=== PATIENT | male | born 1950 | race Caucasian/White ===

== ENCOUNTER 2024-02-21 15:47 | Outpatient (OUT) | payer MEDICARE, SELFPAY ==
--- NOTE | 2024-02-21 15:56 | XR_ITS ---
The [address] [address] Patient Name: MARIELA KENNY MRN: [id number] date: 1950 Sex: M Assigned Patient Location: [facility] Current Patient Location: Accession/Order Number: [id number] Exam Date: 02/21/2024 16:18 Report Date: 02/23/2024 06:46 At the request of: LIZ MAN Procedure: XR chest 2V EXAMINATION: XR chest 2V HISTORY: Cough COMPARISON: No relevant comparison available. FINDINGS: LUNGS: Underexpanded lungs with mild patchy opacities within left lung base. VASCULATURE: No increased pulmonary vasculature. PLEURA: No pneumothorax, effusion, or pleural thickening. CARDIAC: No cardiomegaly or cardiac silhouette abnormality. MEDIASTINUM: No visible mass or adenopathy. BONES: No fracture or visible bone lesion. OTHER: [Or projecting over lower left chest. XR/XR chest 2V IMPRESSION: 1. Mild left basilar infiltrates. Electronically authenticated by: BRITTANEY GARCIA Date: 02/23/2024 06:46
== END 2024-02-21 15:48 | disposition home or self-care (01) ==
LOC: RAD 15:51
PROVIDERS: PCP Nurse Practitioner; Visit Provider Nurse Practitioner
DX: R05.9 Cough, unspecified (principal)
CPT/HCPCS: 71046

== ENCOUNTER 2024-12-05 09:32 | Outpatient (OUT) | payer MEDICARE, SELFPAY ==
--- OUTSIDE RECORDS SUMMARY | 2024-12-05 09:40 | XMS_ITS | Encounter Summary ---
Author Organization [facility] 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 Chest pain, unspecified type R06.02 (ICD-10-CM) - Shortness of breath Procedures NM MYOCARDIAL SPECT REST EXERCISE OR RX CHG MYOCARDIAL SPECT MULTIPLE STUDIES [id number] - CHG MYOCARDIAL SPECT MULTIPLE STUDIES Selena Burks MD [address] [place] [address] Phone: tel: fax: Referral ID Status Reason Start Date Expiration Date Visits Re quested Visits Authorized [id number] Closed 04/14/2022 06/13/2022 1 1 Encounter Details Date Type Department Care Team (Latest Contact Info) Description 04/08/2022 Transcribe Orders [facility] [address] [place] [address] Selena Burks MD [address] [place] [address] [phone] Shortness of breath (Primary Dx); 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 [facility] pctrs; Presence of coronary angioplasty implant and graft; Chest pain, unspecified type Social History Tobacco Use Types Packs/Day Years Used Date Smoking Tobacco: Never Assessed Sex and Gender Information Value Date Recorded Sex Assigned at Not on file Legal Sex Male 2:21 AM EST Gender Identity Not on file Sexual Orientation Not on file documented as of this encounter Plan of Treatment Scheduled Orders Name Type Priority Associated Diagnoses Orde r Schedule NM MYOCARDIAL SPECT REST EXERCISE OR RX Imaging Routine Shortness of breath 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 [facility] pctrs Presence of coronary angioplasty implant and graft Chest pain, unspecified type Expected: 04/08/2022, Expires: 04/08/2023 documented as of this encounter Visit Diagnoses Diagnosis Shortness of breath- Primary 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
--- OUTSIDE RECORDS SUMMARY | 2024-12-05 09:40 | XMS_ITS | Clinical Summary ---
Author Organization [facility] Address [address] [facility], [address] [place] [address] Care Team Providers Care Underground Truck Operator Name Role Phone Lee Ann rBower APRN - CONTINUOUS IMPROVEMENT BLACK BELT Primary Care Provider [phone]- [phone] Allergies Active Allergy Reactions Criticality Noted Date Comments Amoxapine 09/22/2017 tremor Ciprofloxacin 09/22/2017 headache Gentamicin 09/22/2017 Garamycin ointment Sulfamethoxazole-Trimethoprim 2017 Medications atorvastatin (LIPITOR) 40 MG tablet Take 40 mg by mouth daily Active metFORMIN (GLUCOPHAGE) 500 MG tablet Take 500 mg by mouth 2 times daily (with meals) 09/26/2017 Active ranolazine (RANEXA) 500 MG extended release tablet Take 500 mg by mouth 2 times daily Active docusate sodium (COLACE) 250 MG capsule Take 250 mg by mouth daily Active nitroGLYCERIN (NITROSTAT) 0.[address] 0.4 mg under the tongue every 5 minutes as needed for Chest pain up to max of 3 total doses. If no relief after 1 dose, call 911. Active metoprolol tartrate (LOPRESSOR) 25 MG tablet Take 25 mg by mouth 2 times daily Active aspirin 81 MG chewable tablet Take 1 tablet by mouth daily 30 tablet 3 05/02/2022 Active ticagrelor (BRILINTA) 90 MG TABS tablet Take 1 tablet by mouth 2 times daily 60 tablet 05/01/2022 Active pantoprazole (PROTONIX) 40 MG tablet Take 40 mg by mouth daily Active ezetimibe (ZETIA) 10 MG tablet Take 1 tablet by mouth daily Active Active Problems Problem Noted Date Diagnosed Date CAD in [place] artery 06/08/2022 Encounters Date Type Department Care Team Description 09/26/2024 9:36 AM EDT - 09/26/2024 11:59 PM EDT Hospital Encounter [facility] [address] [place] [address] Discharge Disposition: Home or Self Care 09/26/2024 8:42 AM EDT - 09/26/2024 9:35 AM EDT Hospital Encounter [facility] [address] [place] [address] Discharge Disposition: Home or Self Care from Last 3 Months Family History Medical History Relation Name Comments Heart Disease Brother Heart Attack Father Heart Disease Mother High Blood Pressure Mother Relation Name Status Comments Brother Father Mother Social History Tobacco Use Types Packs/Day Years Used Date Smoking Tobacco: Former Cigarettes 2 28 1 967 1994 Tobacco Cessation:Counseling Given: Not Answered Alcohol Use Standard Drinks/Week Comments Yes 2 (1 standard drink = 0.6 oz pur e alcohol) Sex and Gender Information Value Date Recorded Sex Assigned at Not on file Legal Sex Male 2:21 AM EST Gender Identity Not on file Sexual Orientation Not on file Last Filed Vital Signs Vital Sign Reading Time Taken Comments Blood Pressure 144/65 03/03/2024 4:45 PM EST Pulse 68 03/03/2024 4:45 PM EST Temperature 36.7 C (98.1 F) 03/03/2024 3:27 PM EST Respiratory Rate 13 03/03/2024 4:45 PM EST Oxygen Saturation 97% 03/03/2024 4:45 PM EST Inhaled Oxygen Concentration - - Weight 111.1 kg (245 lb) 03/03/2024 3:25 PM EST Height 182.9 cm (6') 03/03/2024 3:25 PM EST Body Mass Index 33.23 03/03/2024 3:25 PM EST Plan of Treatment Health Maintenance Due Date Last Done Comments Depression Screen 1964 Hepatitis C screen 1970 DTaP/Tdap/Td vaccine (1 - Tdap) 1971 Colonoscopy 1997 Colorectal Cancer Screen 1997 FIT/FOBT: Average risk 1997 Fecal-DNA (Cologuard): Average risk 1997 Sigmoidoscopy/CT colonography 1997 Pneumococcal 50+ years Vaccine (1 of 1 - PCV) 2002 Shingles vaccine (1 of 2) 2002 Respiratory Syncytial Virus (RSV) or age 60 yrs+ (1 - Risk 60-74 years 1-dose series) 2012 AAA screen 2017 Annual Wellness Visit (Medicare Advantage) 03/15/2024 A1C test (Diabetic or Prediabetic) 09/15/2024 09/16/2023, 10/03/2020 Flu vaccine (#1) 10/13/2024 COVID-19 Vaccine ( season) 2024 12/07/2022, 12/04/2021, 06/17/2021, Additional history exists GFR test (Diabetes, CKD 3-4, OR last GFR 15-59) 09/26/2025 09/26/2024, 04/03/2024, 03/03/2024, Additional history exists Lipids 09/26/2025 09/26/2024, 03/16, 09/16/2023, Additional history exists Hepatitis A vaccine Aged Out No longe r eligible based on patient's age to complete this topic Hepatitis B vaccine Aged Out No longe r eligible based on patient's age to complete this topic Hib vaccine Aged Out No longer eligi ble based on patient's age to complete this topic Meningococcal (ACWY) vaccine Aged Out No longer eligible based on patient's age to complete this topic Meningococcal B vaccine Aged Out No l onger eligible based on patient's age to complete this topic Polio vaccine Aged Out No longer elig ible based on patient's age to complete this topic Procedures Procedure Name Priority Date/Time Associated Diagnosis Comments TSH Routine 09/26/2024 9:37 AM EDT LIPID, FASTING Routine 09/26/2024 9:37 AM EDT T4, FREE Routine 09/26/2024 9:37 AM EDT T3, FREE Routine 09/26/2024 9:37 AM EDT COMPREHENSIVE METABOLIC PANEL Routine 09/26/2024 9:37 AM EDT CK Routine 09/26/2024 9:37 AM EDT CBC WITH AUTO DIFFERENTIAL Routine 09/26/2024 9:37 AM EDT HEMOGLOBIN A1C Routine 09/16/2023 8:46 AM EDT from Last 3 Months or Most Recently Relevant to Health Maintenance Results * (ABNORMAL) Lipid, Fasting (09/26/2024 9:37 AM EDT) Cholesterol, Fasting 151 0 - 199 mg/dL 09/26/2024 9:37 AM EDT [facility] Comment: Cholesterol Guidelines: <200 Desirable 200-240 Borderline >240 Undesirable HDL 59 >40 mg/dL 09/26/2024 9:37 AM EDT [facility] Comment: HDL Guidelines: <40 Undesirable 40-59 Borderline >59 Desirable LDL Cholesterol 57 0 - 100 mg/dL 09/26/2024 9:37 AM EDT [facility] Comment: LDL Guidelines: <100 Desirable 100-129 Near to/above Desirable 130-159 Borderline >159 Undesirable Direct (measured) LDL and calculated LDL are not interchangeable tests. Chol/HDL Ratio 2.6 <5.0 09/26/2024 9:37 AM EDT [facility] Triglyceride, Fasting 177(H) 0 - 149 mg/dL 09/26/2024 9:37 AM EDT [facility] Comment: Triglyceride Guidelines: <150 Desirable 150-199 Borderline 200-499 High >499 Very high Based on AHA Guidelines for fasting triglyceride, December 2011. VLDL 35(H) 1 - 30 mg/dL 09/26/2024 9:37 AM T [facility] 09/26/2024 9:37 AM EDT 09/26/2024 9:38 AM EDT us Selena Burks MD CHEMISTRY ORDERABLES Final R esult [facility] [address] [place] [address], [facility] [phone] [facility] [address] [place] [address], [facility] [phone] * (ABNORMAL) CBC with Auto Differential (09/26/2024 9:37 AM EDT) WBC 5.6 3.5 - 11.3 k/uL 09/26/2024 9:37 AM [facility] RBC 4.18(L) 4.21 - 5.77 m/uL 09/26/2024 9:37 AM [facility] Hemoglobin 14.8 13.0 - 17.0 g/dL 09/26/2024 9:37 AM [facility] Hematocrit 43.0 40.7 - 50.3 % 09/26/2024 9:37 AM [facility] MCV 102.9 82.6 - 102.9 fL 09/26/2024 9:37 AM [facility] MCH 35.4(H) 25.2 - 33.5 pg 09/26/2024 9:37 AM [facility] MCHC 34.4 28.4 - 34.8 g/dL 09/26/2024 9:37 AM [facility] RDW 12.7 11.8 - 14.4 % 09/26/2024 9:37 AM [facility] Platelets 146 138 - 453 k/uL 09/26/2024 9:37 AM [facility] MPV 10.3 8.1 - 13.5 fL 09/26/2024 9:37 AM [facility] NRBC Automated 0.0 0.0 per 100 WBC 09/26/2024 9:37 AM [facility] Neutrophils % 68(H) 36 - 65 % 09/26/2024 9:37 AM [facility] Lymphocytes % 19(L) 24 - 43 % 09/26/2024 9:37 AM [facility] Monocytes % 10 3 - 12 % 09/26/2024 9:37 AM [facility] Eosinophils % 2 1 - 4 % 09/26/2024 9:37 AM EDT [facility] Basophils % 1 0 - 2 % 09/26/2024 9:37 AM EDT [facility] Immature Granulocytes % 0 0 % 09/26/2024 9:37 AM EDT [facility] Neutrophils Absolute 3.81 1.50 - 8.10 k/uL 09/26/2024 9:37 AM EDT [facility] Lymphocytes Absolute 1.08(L) 1.10 - 3.70 k/uL 09/26/2024 9:37 AM EDT [facility] Monocytes Absolute 0.56 0.10 - 1.20 k/uL 09/26/2024 9:37 AM EDT [facility] Eosinophils Absolute 0.12 0.00 - 0.44 k/uL 09/26/2024 9:37 AM EDT [facility] Basophils Absolute 0.03 0.00 - 0.20 k/uL 09/26/2024 9:37 AM EDT [facility] Immature Granulocytes Absolute <0.03 0.00 - 0.30 k/uL 09/26/2024 9:37 AM EDT [facility] 09/26/2024 9:37 AM EDT 09/26/2024 9:38 AM EDT us Selena Burks MD HEMATOLOGY ORDERABLES Final Result Performing Organization Address City/State/[facility] Co de Phone Number [facility] [address] [phone] * T3, Free (09/26/2024 9:37 AM EDT) T3, Free 2.82 2.00 - 4.40 pg/mL 09/26/2024 9:37 AM EDT [facility] 09/26/2024 9:37 AM EDT 09/26/2024 9:38 AM EDT us Selena Burks MD CHEMISTRY ORDERABLES Final R esult Performing Organization Address [facility]/ZIP Co de Phone Number [facility] [address] [phone] [facility] [address] [place] [address], [facility] [phone] * TSH (09/26/2024 9:37 AM EDT) TSH 1.16 0.27 - 4.20 uIU/mL 09/26/2024 9:37 AM EDT [facility] 09/26/2024 9:37 AM EDT 09/26/2024 9:38 AM EDT us Selena Burks MD CHEMISTRY ORDERABLES Final R esult Performing Organization Address [facility]/ZIP Co de Phone Number [facility] [address] [place] [address] * T4, Free (09/26/2024 9:37 AM EDT) T4 Free 1.2 0.92 - 1.68 ng/dL 09/26/2024 9:37 AM EDT [facility] 09/26/2024 9:37 AM EDT 09/26/2024 9:38 AM EDT us Selena Burks MD CHEMISTRY ORDERABLES Final R esult Performing Organization Address City/[facility]/ZIP Co de Phone Number [facility] [address] [place] [address] [place] [address], [facility] [phone] * CK (09/26/2024 9:37 AM EDT) Total CK 52 39 - 308 U/L 09/26/2024 9:37 AM EDT [facility] 09/26/2024 9:37 AM EDT 09/26/2024 9:38 AM EDT us Selena Burks MD CHEMISTRY ORDERABLES Final R esult [facility] [address] [phone] * (ABNORMAL) Comprehensive Metabolic Panel (09/26/2024 9:37 AM EDT) Sodium 139 136 - 145 mmol/L 09/26/2024 9:37 AM T [facility] Potassium 4.8 3.7 - 5.3 mmol/L 09/26/2024 9:37 AM [facility] Chloride 104 98 - 107 mmol/L 09/26/2024 9:37 AM [facility] CO2 21 20 - 31 mmol/L 09/26/2024 9:37 AM [facility] Anion Gap 14 9 - 16 mmol/L 09/26/2024 9:37 AM [facility] Glucose 139(H) 74 - 99 mg/dL 09/26/2024 9:37 AM [facility] BUN 22 8 - 23 mg/dL 09/26/2024 9:37 AM [facility] Creatinine 1.3(H) 0.70 - 1.20 mg/dL 09/26/2024 9:37 AM [facility] Est, Glom Filt Rate 57(L) >60 mL/min/1.7 3m2 09/26/2024 9:37 AM [facility] Comment: These results are not intended for use in patients <18 years of age. eGFR results are calculated without a race factor using the 2020 CKD-EPI equation. Careful clinical correlation is recommended, particularly when comparing to results calculated using previous equations. The CKD-EPI equation is less accurate in patients with extremes of muscle mass, extra-renal metabolism of creatine, excessive creatine ingestion, or following therapy that affects renal tubular secretion. BUN/Creatinine Ratio 17 9 - 20 09/26/2024 9:37 AM [facility] Calcium 9.2 8.6 - 10.4 mg/dL 09/26/2024 9:37 AM EDT [facility] Total Protein 7.0 6.6 - 8.7 g/dL 09/26/2024 9:37 AM EDT [facility] Albumin 4.2 3.5 - 5.2 g/dL 09/26/2024 9:37 AM EDT [facility] Albumin/Globulin Ratio 1.5 1.0 - 2.5 09/26/2024 9:37 AM EDT [facility] Total Bilirubin 0.5 0.00 - 1.20 mg/dL 09/26/2024 9:37 AM EDT [facility] Alkaline Phosphatase 49 40 - 129 U/L 09/26/2024 9:37 AM T [facility] ALT 27 10 - 50 U/L 09/26/2024 9:37 AM T [facility] AST 29 10 - 50 U/L 09/26/2024 9:37 AM EDT [facility] 09/26/2024 9:37 AM EDT 09/26/2024 9:38 AM EDT Selena Burks MD CHEMISTRY ORDERABLES Final R esult [facility] [address] [phone] * (ABNORMAL) Hemoglobin A1C (09/16/2023 8:46 AM EDT) Hemoglobin A1C 6.3(H) 4.0 - 6.0 % 09/16/2023 8:46 AM EDT [facility] Estimated Avg Glucose 134 mg/dL 09/16/2023 8:46 AM EDT [facility] Comment: The ADA and AACC recommend providing the estimated average glucose result to permit better patient understanding of their HBA1c result. 09/16/2023 8:46 AM EDT 09/16/2023 8:47 AM EDT us Mague Brown TOLL LINE REPAIRER - FOOD SERVICE DIRECTOR CHEMISTRY ORDERABLES Fin al Result [facility] [address] [place] [address], [facility] [phone] [facility] [address] [place] [address], [facility] [phone] from Last 3 Months or Most Recently Relevant to Health Maintenance Insurance [facility]-MEDICARE ADVANTAGE Advance Directives Documents on File Type Date Recorded Patient Satin Finisher Expl anation ACP-Power of Flavoring Maker 03/03/2024 5:14 PM Durable Power of Flavoring Maker for Health Care ACP-Advance Directive 05/04/2022 1:36 PM ACP-Advance Directive 04/30/2022 1:13 PM A CP-Advance Directive * Full Code (Latest Code Status on File) Date Activated Date Inactivated Comments 04/30/2022 8:23 PM 05/01/2022 2:09 PM Care Teams Underground Truck Operator Relationship Specialty Start Date End Date Lee Ann Brower APRN - CONTINUOUS IMPROVEMENT BLACK BELT [address] [place] [address] PCP - General 03/03/24
--- OUTSIDE RECORDS SUMMARY | 2024-12-05 09:40 | XMS_ITS | Clinical Summary ---
Author Organization [employer] [facility] [employer] Address [id number] [address] [place] [address] Care Team Providers Care Endoscopy Specialty Technician Name Role Phone Noa Avery MD Primary Care Provider Allergies Active Allergy Reactions Criticality Noted Date Comments Asendin 09/22/2017 tremor Sulfamethoxazole-Trimethoprim 2017 Ciprofloxacin 09/22/2017 headache Gentamicin 09/22/2017 Garamycin ointment Medications oxyCODONE-aceta minophen (PERCOCET) 5-325 mg per tablet Take 1 tablet by mouth every 6 (six) hours as needed for pain. Active ranolazine (RANEXA) 500 mg 12 hr tablet Take 500 mg by mouth 2 (two) times a day. Active atorvastatin (LIPITOR) 40 mg tablet Take 40 mg by mouth daily. Active omeprazole (PriLOSEC) 20 mg capsule Take 20 mg by mouth nightly. Active metoprolol tartrate (LOPRESSOR) 25 mg tablet Take 12.5 mg by mouth 2 (two) times a day. Active mometasone (NASONEX) 50 mcg/actuation nasal spray Administer 2 sprays into each nostril daily. Active nitroglycerin (NITROSTAT) 0.[address] 0.4 mg under the tongue every 5 (five) minutes as needed for chest pain. Active aspirin 81 mg chewable tablet Chew 1 tablet (81 mg total) and swallow daily. 30 tablet 8 Active metFORMIN (GLUCOPHAGE) 500 mg tablet Take 1 tablet (500 mg total) by mouth 2 (two) times a day with meals. 30 tablet 8 Active Active Problems Problem Noted Date Diagnosed Date Facial abscess 09/22/2017 Immunizations No known immunizations Social History Tobacco Use Types Packs/Day Years Used Date Smoking Tobacco: Former Cigarettes 2 18 1 977 - 1994 Smokeless Tobacco: Never Alcohol Use Standard Drinks/Week Comments Yes 7 (1 standard drink = 0.6 oz pur e alcohol) Childcare Answer Date Recorded Childcare Unknown 08/24/2018 Employment Answer Date Recorded Employment Unknown 08/24/2018 Purpose - Life Answer Date Recorded Purpose and direction in life Unknown Sex and Gender Information Value Date Recorded Sex Assigned at Not on file Legal Sex Male 11:39 AM EDT Gender Identity Not on file Sexual Orientation Not on file Last Filed Vital Signs Vital Sign Reading Time Taken Comments Blood Pressure 133/74 09/26/2017 11:44 AM EDT Pulse 62 09/26/2017 11:44 AM EDT Temperature 36.8 C (98.2 F) 09/26/2017 11:44 AM EDT Respiratory Rate 21 09/26/2017 11:4 4 AM EDT Oxygen Saturation 99% 09/26/2017 11: 44 AM EDT Inhaled Oxygen Concentration - - Weight 112.4 kg (247 lb 12.8 oz) 09/26/2017 4:16 AM EDT Height 182.9 cm (6') 09/22/2017 9:00 PM EDT Body Mass Index 33.61 09/22/2017 9:00 PM EDT Plan of Treatment Health Maintenance Due Date Last Done Comments Depression Screening 1962 Tobacco Screening 1964 Adult BMI Screening 1970 DTaP,Tdap and Td Vaccines (1 - Tdap) 1971 Zoster (Shingles) Vaccine (1 of 2) 2002 Fall Risk Screening 2017 COVID-19 Vaccine (5 2024-2 6 season) 2024 12/04/2021, 12/13/2020, 05/17/2020, Additional history exists Influenza Vaccine 11/13/2024 Goals Goal Patient Goal Type Associated Problems Recent Progress Patient-Stated? Author Discharge to home with safe self care General Yes Bernice Perez, RN Note: Evaluation of progress towards goal: Pt to potentially discharge on 7/13 with safe self care. Medical Devices Not on file Procedures Procedure Name Priority Date/Time Associated Diagnosis Comments NOCTURNAL PULSE OXIMETRY Routine 10/03/2024 4:04 PM EDT Shortness of breath from Last 3 Months Results * Nocturnal Pulse Oximetry - [facility] Monitor Program (10/03/2024 4:04 PM EDT) Narrative MANUALLY TRANSCRIBED RESULTS - 10/03/2024 4:04 PM EDT Pulse Oximetry Report Recording Information Site of recording: Home Type: Nocturnal Respiratory Support: None (Room air) Results: On Room Air Nocturnal SaO2: (77-97%) Time with SpO2 < 89% 221.7 minutes Nocturnal HR: 67 bpm Resting SaO2: 94 % Resting HR: 68 bpm Comments: noc pox on room air Respiratory Therapist: Sheila Ponce RCP Selena Burks MD RESPIRATORY CARE ORDERABLES Final Result MANUALLY TRANSCRIBED RESULTS from Last 3 Months Insurance [employer] MEDICARE Advance Directives Documents on File Type Date Recorded Patient Commercial Drone Software Developer Expl anation Living Will 09/22/2017 8:06 PM DPOA * Full Code (Latest Code Status on File) Date Activated Date Inactivated Comments 09/22/2017 8:56 PM 09/26/2017 4:54 PM Care Teams Endoscopy Specialty Technician Relationship Specialty Start Date End Date Noa Avery MD PCP - General Family Medicine 03/15/17
--- OUTSIDE RECORDS SUMMARY | 2024-12-05 09:45 | XMS_ITS | CCD ---
Author Organization [facility] Care Team Providers Care Reading Specialist Name Role Phone Sara Avery Primary Care Provider [phone] DR NICKI LIN Attending Unavailable GENA, DR SARA Davila Primary Care Unavailable RILEY, DR CACERES Admitting Unavailable RILEY, DR CACERES Consulting Unavailable GENA, DR SARA Davila Admitting Unavailable GENA, DR SARA Davila Primary Care Unavailable GENA, DR SARA Davila Consulting Unavailable GENA, DR SARA Davila Attending Unavailable Sara Avery Primary Care Provider [phone] Sara Avery Primary Care Provider [phone] Sara Avery Primary Care Provider Sara Avery Primary Care Provider UnavailSara Price MD Primary Care Provider UnavailSara Lockett MD Primary Care Provider Unavailab le Magda [employer], Liz Primary Care Provider [phone] MAGDA, LIZ Primary Care Unavailable DOMO MATTSON Attending Unavailable MAGDA, LIZ Primary Care Unavailable MAGDA, LIZ Primary Care Unavailable MAGDA, LIZ Primary Care Unavailable SARA AVERY Primary Care Unavailable SARA AVERY Referring Unavailable SARA AVERY Primary Care Unavailable SARA AVERY Referring Unavailable MAGDA, LIZ Primary Care Unavailable MAGDA, LIZ Primary Care Unavailable DOT, FADHIL A Referring Unavailable MAGDA, LIZ Primary Care Unavailable DOT, FADHIL A Referring Unavailable MAGDA, LIZ Primary Care Unavailable MAGDA, LIZ Primary Care Unavailable MAGDA, LIZ Primary Care Unavailable SARA AVERY Primary Care Unavailable SARA AVERY Referring Unavailable DOT, FADHIL A Referring Unavailable MAGDA, LIZ Primary Care Unavailable MAGDA, LIZ Primary Care Unavailable SARA AVERY Primary Care Unavailable SARA AVERY Referring Unavailable SARA AVERY Primary Care Unavailable AVERY, SARA Davila Referring Unavailable MAGDA, LIZ Primary Care Unavailable DOT, FADHIL A Referring Unavailable MAGDA, LIZ Primary Care Unavailable DOT, FADHIL A Referring Unavailable MAGDA, LIZ Primary Care Unavailable MAGDA, LIZ Referring Unavailable MAGDA, LIZ Primary Care Unavailable MAGDA, LIZ Primary Care Unavailable DOT, FADHIL A Referring Unavailable AVERY, SARA Davila Primary Care Unavailable AVERY, SARA Davila Referring Unavailable AVERY, SARA Davila Primary Care Unavailable AVERY, SARA Davila Referring Unavailable MAGDA, LIZ Primary Care Unavailable DOT, FADHIL A Referring Unavailable AVERY, SARA Davila Primary Care Unavailable AVERY, SARA Davila Referring Unavailable MAGDA, LIZ Primary Care Unavailable DOT, FADHIL A Referring Unavailable MAGDA, LIZ Primary Care Unavailable AVERY, SARA Davila Primary Care Unavailable AVERY, SARA Davila Referring Unavailable AVERY, SARA Davila Primary Care Unavailable AVERY, SARA Davila Referring Unavailable AVERY, SARA Davila Primary Care Unavailable AVERY, SARA Davila Referring Unavailable AVERY, SARA Davila Referring Unavailable AVERY, SARA Davila Primary Care Unavailable Magda, Liz L Attending Unavailable Magda, Liz L Attending Unavailable Magda, Liz L Attending Unavailable Magda, Liz L Attending Unavailable Magda, Liz L Attending Unavailable Allergies Allergy Classification Reported Allergen(s) Allergy Type Date of Onset Reaction(s) Facility Amoxapine (1 source) Amoxapine Drug Allergy 8 [facility] Gentamicin (1 source) Gentamicin Drug Allergy 8 [facility] Quinolones (antibiotic) (1 source) Ciprofloxacin Drug Allergy 8 [facility] Sulfamethoxazole / Trimethoprim (1 source) Sulfamethoxazole / Trimethoprim Drug Allergy 8 [facility] (3 sources) Amoxapine; Translations: [ASENDIN] Drug Allergy 4 [facility] Repository (1 source) Ciprofloxacin Drug Allergy 4 [facility] Repository (1 source) Gentamicin Sulfate (LONG-TERM) Drug Allergy [facility] Repository (2 sources) Sulfamethoxazole / Trimethoprim; Translations: [Bactrim] Drug Allergy 6 [facility] Repository (20 sources) Amoxapine Drug Allergy 8 [facility] (20 sources) Ciprofloxacin; Translations: [CIPROFLOXACIN] Drug Allergy 8 [facility] [employer] Work Phone: (20 sources) Gentamicin; Translations: [GENTAMICIN] Drug Allergy 8 [facility] Work Phone: (20 sources) Sulfamethoxazole / Trimethoprim; Translations: [SULFAMETHOXAZOLE-TR IMETHOPRIM] Drug Allergy 8 [facility] Work Phone: (1 source) Gentamicin Sulfate (LONG-TERM); Translations: [Garamycin Ophthalmic] Drug Allergy [facility] Repository (1 source) Ticagrelor; Translations: [Brilinta] Drug Allergy [facility] Repository Medications Current Medications Medication Drug Class(es) Dates Sig (Normalized) Sig (Original) acetaminophen 325 mg oral tablet (1 source) Start: 04-30-2022 acetaminophen (TYLENOL) tablet 650 mg aspirin 81 mg chewable tablet (20 sources) Platelet Aggregation Inhibitor, Nonsteroidal Anti-inflammatory Drug Start: 05-02-2022 take 1 tablet by mouth once daily aspirin 81 MG chewable tablet Take 1 tablet by mouth daily 30 tablet 3 05/02/2022 Active Start: 05-02-2022 take 1 tablet by daniella th once daily aspirin 81 MG chewable tablet Take 1 tablet by mouth daily 30 tablet 3 05/02/2022 Active Start: 05-01-2022 aspirin chewab le tablet 81 mg End: 05-01-2022 take 1 tablet by mouth once daily aspirin 325 MG EC tablet Take 325 mg by mouth daily 0 05/01/2022 Discontinued (Stop Taking at Discharge) atorvastatin 40 mg oral tablet (20 sources) HMG-CoA Reductase Inhibitor take 1 tablet by mouth once daily atorvastatin (LIPITOR) 40 MG tablet Take 40 mg by mouth daily Active docusate sodium 250 mg oral capsule (20 sources) take 1 capsule by mouth once daily docusate sodium (COLACE) 250 MG capsule Take 250 mg by mouth daily Active ezetimibe 10 mg oral tablet (20 sources) Dietary Cholesterol Absorption Inhibitor take 1 tablet by mouth once daily ezetimibe (ZETIA) 10 MG tablet Take 1 tablet by mouth daily Active metFORMIN hydrochloride 500 mg oral tablet (20 sources) Biguanide Start: 09-27-19 18 take 1 tablet by mouth twice daily at mealtime metFORMIN (GLUCOPHAGE) 500 MG tablet Take 500 mg by mouth 2 times daily (with meals) 09/26/2017 Active metoprolol tartrate 25 mg oral tablet (20 sources) beta-Adrenergic Epi take 1 tablet by mouth twice daily metoprolol tartrate (LOPRESSOR) 25 MG tablet Take 25 mg by mouth 2 times daily Active 1 ml morphine sulfate 2 mg/ml cartridge (1 source) Opioid Agonist Start: 04-30-19 End: 05-01-19 morphine (PF) injection 2 mg nitroglycerin 0.4 mg sublingual tablet (20 sources) Nitrate Vasodilator nitroGLYCERI N (NITROSTAT) 0.[address] 0.4 mg under the tongue every 5 minutes as needed for Chest pain up to max of 3 total doses. If no relief after 1 dose, call 911. Active 2 ml ondansetron 2 mg/ml injection (1 source) Serotonin-3 Receptor Antagonist Start: 04-30-19 ondansetron (ZOFRAN) injection 4 mg pantoprazole 40 mg delayed release oral tablet (20 sources) Proton Pump Inhibitor take 1 tablet by mouth once daily pantoprazole (PROTONIX) 40 MG tablet Take 40 mg by mouth daily Active 12 hr ranolazine 500 mg extended release oral tablet (20 sources) Anti-anginal take 1 tablet by mouth twice daily ranolazine (RANEXA) 500 MG extended release tablet Take 500 mg by mouth 2 times daily Active 1000 ml sodium chloride 9 mg/ml injection (5 sources) Start: 04-30-19 0.9 % sodium chloride bolus Start: 04-30-2022 0.9 % sodium c hloride infusion Start: 04-30-2022 sodium chlorid e flush 0.9 % injection 5-40 mL ticagrelor 90 mg oral tablet (20 sources) Start: 04-30-2022 take 1 tablet by mouth twice daily ticagrelor (BRILINTA) 90 MG TABS tablet Take 1 tablet by mouth 2 times daily 60 tablet 05/01/2022 Active Completed/Discontinued Medications Medication Drug Class(es) Dates Sig (Normalized) Sig (Original) omeprazole 20 mg delayed release oral capsule (2 sources) Proton Pump Inhibitor End: 05-05-2022 take 1 capsule by mouth once daily omeprazole (PRILOSEC) 20 MG delayed release capsule Take 20 mg by mouth nightly 0 05/05/2022 Discontinued (LIST CLEANUP) regadenoson (LEXISCAN) injection 0.4 mg (2 sources) Start: 04-03-2024 End: 04-03-2024 take 0.4 mg intravenously once as needed 0.4 mg, IntraVENous, IMG ONCE PRN, 1 dose, Starting on Wed04/03/24 at 1040, Until Wed04/03/24 at 1049, Other Start: 04-17-2022 End: 04-17-2022 regadenoson (LEXISCAN) injec tion 0.4 mg technetium sestamibi (CARDIOLITE) injection 30 millicurie (3 sources) Start: 04-04-2024 End: 04-04-2024 take 1 dose intravenously once 30 millicurie, IntraVENous, IMG ONCE PRN, 1 dose, Starting on Wed04/04/24 at 1258, Until Wed04/04/24 at 1252, Other Start: 04-03-2024 End: 04-03-2024 take 1 dose intravenously once 30 millicurie, IntraVEN ous, IMG ONCE PRN, 1 dose, Starting on Wed04/03/24 at 1059, Until Wed04/03/24 at 1035, Other Start: 04-17-2022 End: 04-17-2022 technetium sestamibi (CARDIO LITE) injection 30 millicurie Problems Active Problems Problem Classification Problem Date Documented Date Episodic/Chronic Cardiac dysrhythmias (8 sources) Atrial premature complex ; Translations: [Atrial premature depolarization] Onset: 04-03-2024 04-03-2024 Chronic Coronary atherosclerosis and other heart disease (20 sources) Coronary atherosclerosis; Translations: [Atherosclerotic heart disease of [place] coronary artery with other forms of angina pectoris] Onset: 06-08-2022 Chronic Diabetes mellitus without complication (4 sources) Type 2 diabetes mellitus without complications; Translations: [TYPE 2 DM WITHOUT COMPLICATIONS] Onset: 01-06-2021 Chronic Disorders of lipid metabolism (2 sources) Pure hypercholesterolemia, unspecified; Translations: [Pure hypercholesterolemia, unspecified] Onset: 04-03-2024 Chronic Essential hypertension (2 sources) Essential (primary) hypertension; Translations: [Essential (primary) hypertension] Onset: 04-03-2024 Chronic Nonspecific chest pain (1 source) Chest pain; Translations: [Chest pain, unspecified] Episodic Other connective tissue disease (1 source) Synovial cyst of popliteal space [Hernandez], unspecified knee; Translations: [Synovial cyst of popliteal space [Hernandez], unspecified knee] Onset: 10-24-2024 Episodic Other lower respiratory disease (6 sources) Shortness of breath; Translations: [SHORTNESS OF BREATH] Onset: 11-26-2021 Episodic Other lower respiratory disease (2 sources) Dyspnea; Translations: [Shortness of breath] Episodic Other nutritional; endocrine; and metabolic disorders (1 source) Body mass index (BMI) 35.0-35.9, adult; Translations: [Body mass index [BMI] 35.0-35.9, adult] Onset: 10-24-2024 Chronic Screening and history of mental health and substance abuse codes (1 source) Personal history of nicotine dependence; Translations: [Personal history of nicotine dependence] Onset: 10-24-2024 Episodic Unclassified (1 source) Supraventricular tachycardia, unspecified; Translations: [Supraventricular tachycardia, unspecified] Onset: 09-26-2024 Past or Other Problems Problem Classification Problem Date Documented Date Episodic/Chronic Coronary atherosclerosis and other heart disease (3 sources) History of cardiovascular surgery; Translations: [Presence of coronary angioplasty implant and graft] Onset: 04-03-2024 Episodic Malaise and fatigue (4 sources) Fatigue; Translations: [Other fatigue] Onset: 03-03-2024 03-03-2024 Episodic Unclassified (1 source) Supraventricular tachycardia, unspecified; Translations: [Supraventricular tachycardia, unspecified] Onset: 09-26-2024 Results Test Name Value Interpretation Reference Range Facility Ambulatory Visit Summaryon 0 11-15-2024 Ambulatory Visit Summary Ambulatory Visit Summary MARIELA CORTEZ :1950 Visit Date:11/15/2024 Ambulatory Visit Instructions Your Diagnosis Hernandez's cyst of knee BMI 35.0-35.9,adult Obesity (BMI 30-39.9) Your Care Team Attending Physician - Liz Brock Primary Care Physician - Liz Brock This Is Your Medications List [facility] Prescription (Handicap Placard) amiodarone (amiodarone 100 mg Tab) atorvastatin (atorvastatin 80 mg Tab) brompheniramine/dextro methorphan/PSE (Bromfed DM oral syrup) brompheniramine/dextro methorphan/PSE (brompheniramine/dextr omethorphan/PSE 2 mg-10 mg-30 mg/5 mL oral syrup) digoxin (digoxin 125 mcg (0.125 mg) Tab) docusate (docusate sodium 250 mg oral capsule) ezetimibe (ezetimibe 10 mg Tab) fluticasone nasal (fluticasone Nasal 0.05 mg/inh [place]) meloxicam (meloxicam 15 mg Tab) metformin (metformin 500 mg Tab) metoprolol (metoprolol 25 mg ER Tab) nitroglycerin (NitroStat 0.4 mg Tab) pantoprazole (Pantoprazole [address] Tab) ranolazine (ranolazine 1000 mg oral granule, extended release) Procedures Performed Stent (2022), Tonsillectomy, Umbilical hernia. Discharge Vitals Temperature (Temporal Artery) 36.2 ???C Heart Rate (Peripheral) 78 Respiratory Rate 18 Blood Pressure 138/84 Height 179.3 cm Height 71 in Weight 112.8 kg Weight 248.681 lb BMI 35.09 Medications What How Much When Why Instructions Unchanged amiodarone (amiodarone 100 mg Tab) 2 Tablets By Mouth Every day Unchanged atorvastatin (atorvastatin 80 mg Tab) 1 Tablets By Mouth Every day TAKE 1 TABLET BY MOUTH ONCE DAILY Unchanged brompheniramine/ dextromethorphan/ PSE (Bromfed DM oral syrup) 5 Milliliter By Mouth 4 times a day Unchanged brompheniramine/ dextromethorphan/ PSE (brompheniramine/ dextromethorphan/ PSE 2 mg-10 mg-30 mg/ 5 mL oral syrup) 5 Milliliter By Mouth 4 times a day Unchanged digoxin (digoxin 125 mcg (0.125 mg) Tab) TAKE 1 TABLET BY MOUTH ONCE DAILY ON MONDAYS, WEDNESDAYS, FRIDAYS, AND SATURDAYS Unchanged docusate (docusate sodium 250 mg oral capsule) 1 Capsules By Mouth 2 times a day as needed for for constipation Unchanged ezetimibe (ezetimibe 10 mg Tab) TAKE 1 TABLET BY MOUTH ONCE DAILY Unchanged fluticasone nasal (fluticasone Nasal 0.05 mg/ inh [place]) See instructions INSTILL 2 SPRAYS IN EACH NOSTRIL DAILY Unchanged meloxicam (meloxicam 15 mg Tab) 1 Tablets By Mouth Every day Hernandez's cyst of knee BMI 35.0-35.9,adult Former smoker Unchanged metformin (metformin 500 mg Tab) 1 Tablets By Mouth Every day Duration: 90 Days Unchanged metoprolol (metoprolol 25 mg ER Tab) 1 Tablets By Mouth 2 times a day Unchanged Misc Prescription (Handicap Placard) See instructions Atherosclerotic heart disease of [place] coronary artery without angina pectoris Shortness of breath Dysrhythmia Greater than 5 years Unchanged nitroglycerin (NitroStat 0.4 mg Tab) Unchanged pantoprazole (Pantoprazole [address] Tab) 1 Tablets By Mouth Every day Unchanged ranolazine (ranolazine 1000 mg oral granule, extended release) 1,000 Milligram By Mouth 2 times a day Allergies Asendin (Tremor) Bactrim (Rash) Brilinta (Shortness of breath) Garamycin Ophthalmic (Red eye) ciprofloxacin (Headache) Problems Ongoing - Any problem that you are currently receiving treatment for. Atherosclerotic heart disease of [place] coronary artery without angina pectoris Hernandez's cyst of knee BMI 35.0-35.9,adult Disorder of prostate Dizziness Dysrhythmia Dystrophic radiologic calcification HTN (hypertension) Hyperlipidemia No transfusions per jain beliefs Nonsmoker Obesity (BMI 30-39.9) Obesity (BMI 35.0-39.9 without comorbidity) Pure hypercholesterolemia Severe obesity (BMI 35.0-39.9) with comorbidity Type 2 diabetes mellitus with hyperlipidemia Patient Survey You may receive a survey via text or e-mail asking about your office visit. Please share your experience with us by completing your survey. We appreciate your feedback and thank you for choosing us for your care. Patient Portal You may access all of your results and other medical record information on our secure patient portal. If you are not signed up for this yet, please contact [employer] at [phone] to get signed up today. Language Information Language assistance services are available as needed. [facility] Family Medicine Office/Clini c Noteon 11-15-2024 Family Medicine Office/Clinic Note Family Medicine Office/Clinic Note HPI Staff Please speak with patient about scheduling an AWV. Mariela is a 74 year old presenting with 3 week f/u for Hernandez's cyst of right knee SHANEKA was given 40 mg Kenalog and purchase compression brace and started on Meloxicam 15 mg It was doing great until Wednesday, he got on a ladder when he came off ladder he said it feels weak, he has been wearing a brace, he said it feels like it wants to give out For a couple days he could not even touch it, it would be painful History of Present Illness pt present today for follow up on right knee pain Review of Systems PHQ Score Initial Depression Screen Score: 0 SCORE Physical Exam Vitals & Measurements T: 36.2 ???C(Temporal Artery) HR: 78(Peripheral) RR: 18 BP: 138/84 SpO2: 97% HT: 179.3 cm HT: 71 in WT: 112.8 kg WT: 248.681 lb BMI: 35.09 General: alert, no acute distress ENMT: oral mucosa moist, no pharyngeal erythema or exudate Cardiovascular: regular rate and rhythm, normal peripheral perfusion Respiratory: Lungs CTA, respirations non labored Extremities: no deformity, no trauma Neurological: oriented x 4, LOC appropriate for age, CN II-XII intact, motor strength equal & normal bilaterally, speech normal Assessment/Plan 1. Hernandez's cyst of knee (M71.20: Synovial cyst of popliteal space [Hernandez], unspecified knee) pt states his knee was much better after the kenalog injection. But proceeded to climb up a ladder and knee is back to hurting again. will send in medrol dose pack. pt encouraged to take it easy at let it heal. will use compression brace. if no improvement in a couple weeks will consider water therapy. Ordered: meloxicam, 15 mg = 1 tab(s), Oral, Daily, # 30 tab(s), Refills(s) 0, Pharmacy: [id number], 179.3, cm, 10/24/24 8:37:00 EDT, Height/Length Dosing, 113.9, kg, 10/24/24 8:37:00 EDT, Weight Dosing meloxicam, 15 mg = 1 tab(s), Oral, Daily, # 30 tab(s), Refills(s) 0, Pharmacy: [id number], 179.3, cm, 11/15/24 8:19:00 EDT, Height/Length Dosing, 112.8, kg, 11/15/24 8:19:00 EDT, Weight Dosing methylPREDNISolone, = 1 packet(s), Oral, As Directed, as directed on package labeling, X 6 day(s), # 21 tab(s), Refills(s) 0, [id number] 179.3, cm, 11/15/24 8:19:00 EDT, Height/Length Dosing, 112.8, kg, 11/15/24 8:19:00 EDT, Weight Dosing 2. CKD stage 3a, GFR 45-59 ml/min (N18.31: Chronic kidney disease, stage 3a) will continue to monitor. 3. BMI 35.0-35.9,adult (Z68.35: Body mass index [BMI] 35.0-35.9, adult) BMI education given Ordered: meloxicam, 15 mg = 1 tab(s), Oral, Daily, # 30 tab(s), Refills(s) 0, [id number], 179.3, cm, 10/24/24 8:37:00 EDT, Height/Length Dosing, 113.9, kg, 10/24/24 8:37:00 EDT, Weight Dosing meloxicam, 15 mg = 1 tab(s), Oral, Daily, # 30 tab(s), Refills(s) 0, [id number], 179.3, cm, 11/15/24 8:19:00 EDT, Height/Length Dosing, 112.8, kg, 11/15/24 8:19:00 EDT, Weight Dosing methylPREDNISolone, = 1 packet(s), Oral, As Directed, as directed on package labeling, X 6 day(s), # 21 tab(s), Refills(s) 0, [id number], 179.3, cm, 11/15/24 8:19:00 EDT, Height/Length Dosing, 112.8, kg, 11/15/24 8:19:00 EDT, Weight Dosing 4. Obesity (BMI 30-39.9) (E66.9: Obesity, unspecified) see above Ordered: methylPREDNISolone, = 1 packet(s), Oral, As Directed, as directed on package labeling, X 6 day(s), # 21 tab(s), Refills(s) 0, [id number], 179.3, cm, 11/15/24 8:19:00 EDT, Height/Length Dosing, 112.8, kg, 11/15/24 8:19:00 EDT, Weight Dosing Former smoker (Z87.891: Personal history of nicotine dependence) continue not smoking Ordered: meloxicam, 15 mg = 1 tab(s), Oral, Daily, # 30 tab(s), Refills(s) 0, [id number], 179.3, cm, 10/24/24 8:37:00 EDT, Height/Length Dosing, 113.9, kg, 10/24/24 8:37:00 EDT, Weight Dosing meloxicam, 15 mg = 1 tab(s), Oral, Daily, # 30 tab(s), Refills(s) 0, [id number], 179.3, cm, 11/15/24 8:19:00 EDT, Height/Length Dosing, 112.8, kg, 11/15/24 8:19:00 EDT, Weight Dosing Follow-up No qualifying data available Problem List/Past Medical History Ongoing Atherosclerotic heart disease of [place] coronary artery without angina pectoris Henrandez's cyst of knee BMI 35.0-35.9,adult CKD stage 3a, GFR 45-59 ml/min Disorder of prostate Dizziness Dysrhythmia Dystrophic radiologic calcification HTN (hypertension) Hyperlipidemia No transfusions per jain beliefs Nonsmoker Obesity (BMI 30-39.9) Obesity (BMI 35.0-39.9 without comorbidity) Pure hypercholesterolemia Severe obesity (BMI 35.0-39.9) with comorbidity Type 2 diabetes mellitus with hyperlipidemia Historical No qualifying data Procedure/Surgical History Stent (2022), Tonsillectomy, Umbilical hernia. Medications amiodarone 100 mg Tab, 200 mg= 2 tab(s), Oral, Daily atorvastatin 80 mg Tab, 80 mg= 1 tab(s), Oral, Daily Bromfed DM oral syrup, 5 mL, Oral, QID brompheniramine/dextro me (more content not included)... Normal [facility] Comment on above: Result Comment: Elec tronically Signed By: Liz Brock\.br\Date and Time Signed: 11/15/24 09:21 EDT Pre-Visit Planningon 025 Pre-Visit Planning Pre-Visit Planning From: Sara Rowley To: Liz Brock; Sent: 11/10/2024 09:42:03 EDT Subject: Pre-Visit Planning Due Date/Time: 11/10/2024 09:42:00 EDT Caller Name: MARIELA CORTEZ; Caller Number: Radha , M Roe Nance. During a pre-visit planning chart review, I noted the following documentation in the medical record: ??? Glomerular filtration rate (GFR): =49 on 09/16/2023 and =65 on 03/03/2024. Based on your medical judgment, can you please clarify which, if any, of the following conditions are present? I can update the Chronic Problem List with your response if you would like. -Chronic Kidney Disease Stage 2 (GFR 60-89) -Chronic Kidney Disease Stage 3a (GFR 45-59) -Other (please specify): In responding to this request, please exercise your independent professional judgment. The fact that a question is asked does not imply that any particular answer is desired or expected. If you have any questions, please feel free to contact me at extension [phone]. Thank you! Sara Rowley LPN Clinical Commercial Project Manager [place] [id number] Extension: [phone] [email or web address] From: Liz Brock To: Sara Rowley; Sent: 11/15/2024 09:22:13 EDT Subject: RE: Pre-Visit Planning Caller Name: CORTEZMARIELA; Caller Number: Radha , M ckd stage 3a Normal [facility] Ambulatory Visit Summaryon 0 10-24-2024 Ambulatory Visit Summary Ambulatory Visit Summary MARIELA CORTEZ :1950 Visit Date:10/24/2024 Ambulatory Visit Instructions Your Diagnosis Hernandez's cyst of knee BMI 35.0-35.9,adult Former smoker Your Care Team Attending Physician - Liz Brock Primary Care Physician - Liz Brock This Is Your Medications List [facility] Prescription (Handicap Placard) amiodarone (amiodarone 100 mg Tab) atorvastatin (atorvastatin 80 mg Tab) brompheniramine/dextro methorphan/PSE (Bromfed DM oral syrup) brompheniramine/dextro methorphan/PSE (brompheniramine/dextr omethorphan/PSE 2 mg-10 mg-30 mg/5 mL oral syrup) digoxin (digoxin 125 mcg (0.125 mg) Tab) docusate (docusate sodium 250 mg oral capsule) ezetimibe (ezetimibe 10 mg Tab) fluticasone nasal (fluticasone Nasal 0.05 mg/inh [place]) meloxicam (meloxicam 15 mg Tab) metformin (metformin 500 mg Tab) metoprolol (metoprolol 25 mg ER Tab) nitroglycerin (NitroStat 0.4 mg Tab) pantoprazole (Pantoprazole [address] Tab) ranolazine (ranolazine 1000 mg oral granule, extended release) Procedures Performed Stent (2022), Tonsillectomy, Umbilical hernia. Discharge Vitals Temperature (Temporal Artery) 36.2 ???C Heart Rate (Peripheral) 70 Respiratory Rate 20 Blood Pressure 140/84 Height 179.3 cm Height 71 in Weight 113.90 kg Weight 251.106 lb BMI 35.43 What to do next Scheduled Follow-Up Appointments Wednesday 8:20 AM EDT With: Liz Brock Where: [facility] [address] [address]- Medications What How Much When Why Instructions New meloxicam (meloxicam 15 mg Tab) 1 Tablets By Mouth Every day Hernandez's cyst of knee BMI 35.0-35.9,adult Former smoker Pickup at [facility]/pharmacy #[id number] Changed brompheniramine/ dextromethorphan/ PSE (Bromfed DM oral syrup) 5 Milliliter By Mouth 4 times a day Changed brompheniramine/ dextromethorphan/ PSE (brompheniramine/ dextromethorphan/ PSE 2 mg-10 mg-30 mg/ 5 mL oral syrup) 5 Milliliter By Mouth 4 times a day Unchanged amiodarone (amiodarone 100 mg Tab) 2 Tablets By Mouth Every day Unchanged atorvastatin (atorvastatin 80 mg Tab) 1 Tablets By Mouth Every day TAKE 1 TABLET BY MOUTH ONCE DAILY Unchanged digoxin (digoxin 125 mcg (0.125 mg) Tab) TAKE 1 TABLET BY MOUTH ONCE DAILY ON MONDAYS, WEDNESDAYS, FRIDAYS, AND SATURDAYS Unchanged docusate (docusate sodium 250 mg oral capsule) 1 Capsules By Mouth 2 times a day as needed for for constipation Unchanged ezetimibe (ezetimibe 10 mg Tab) TAKE 1 TABLET BY MOUTH ONCE DAILY Unchanged fluticasone nasal (fluticasone Nasal 0.05 mg/ inh [place]) See instructions INSTILL 2 SPRAYS IN EACH NOSTRIL DAILY Unchanged metformin (metformin 500 mg Tab) 1 Tablets By Mouth Every day Duration: 90 Days Unchanged metoprolol (metoprolol 25 mg ER Tab) 1 Tablets By Mouth 2 times a day Unchanged Misc Prescription (Handicap Placard) See instructions Atherosclerotic heart disease of [place] coronary artery without angina pectoris Shortness of breath Dysrhythmia Greater than 5 years Unchanged nitroglycerin (NitroStat 0.4 mg Tab) Unchanged pantoprazole (Pantoprazole [address] Tab) 1 Tablets By Mouth Every day Unchanged ranolazine (ranolazine 1000 mg oral granule, extended release) 1,000 Milligram By Mouth 2 times a day Pharmacy Information [facility]/pharmacy #[id number]: [address], [place] [id number] [phone] Medications and Immunizations Administered Given Kenalog-40, 40 mg, IntraMuscular. For: Hernandez's cyst of knee Allergies Asendin (Tremor) Bactrim (Rash) Brilinta (Shortness of breath) Garamycin Ophthalmic (Red eye) ciprofloxacin (Headache) Problems Ongoing - Any problem that you are currently receiving treatment for. 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 Please share your experience with us by completing your survey. We appreciate your feedback and thank you for choosing us for your care. Education Materials Hernandez Cyst A Hernandez cyst, also called a popliteal cyst, is a growth that forms at the back of the knee. The cyst forms when the fluid-filled sac (bursa) behind the knee joint fills up with more fluid and becomes enlarged. What are the causes? In most cases, a Hernandez cyst results from an (more content not included)... Normal [facility] Family Medicine Office/Clini c Noteon 10-24-2024 Family Medicine Office/Clinic Note Family Medicine Office/Clinic Note HPI Staff Please speak with patient about scheduling an AWV. Mariela is a 74 year old male presenting with behind right knee- swollen and painful Onset: 3 weeks ago Location: behind right knee Characteristics swollen and painful Aggravated by: moving too much Relieved by: elevate, cold packs and sussy wrap this do help a little bit This was previously dx with Dr. Avery was told it is Hernandez's cyst he doesn't remember how this was tx'd History of Present Illness pt presents today with right knee swelling and pain Review of Systems PHQ Score Initial Depression Screen Score: 0 SCORE Physical Exam Vitals & Measurements T: 36.2 ???C(Temporal Artery) HR: 70(Peripheral) RR: 20 BP: 140/84 SpO2: 96% HT: 71 in HT: 179.3 cm WT: 251.106 lb WT: 113.90 kg BMI: 35.43 General: alert, no acute distress ENMT: oral mucosa moist, no pharyngeal erythema or exudate Cardiovascular: regular rate and rhythm, normal peripheral perfusion Respiratory: Lungs CTA, respirations non labored Extremities: no deformity, no trauma Neurological: oriented x 4, LOC appropriate for age, CN II-XII intact, motor strength equal & normal bilaterally, speech normal right knee slightly swollen, small bakers cyst palpated back of right knee Assessment/Plan 1. 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 He has been elevating and icing. he has a lot of work he needs to get done around the house preparing for a family gathering. he has been over doing it and feels that is why it is flared up. he has been using an SUSSY wrap. if he doesn't have the SUSSY wrap on he limps. will give him 40mg Kenalog in office today. and will send in anti inflammatory. pt will purchase and compression brace from [facility] when he picks up rx. If no improvement in 3 weeks Return to clinic. Ordered: meloxicam, 15 mg = 1 tab(s), Oral, Daily, # 30 tab(s), Refills(s) 0, [id number], 179.3, cm, 10/24/24 8:37:00 EDT, Height/Length Dosing, 113.9, kg, 10/24/24 8:37:00 EDT, Weight Dosing 2. BMI 35.0-35.9,adult (Z68.35: Body mass index [BMI] 35.0-35.9, adult) BMI education given Ordered: meloxicam, 15 mg = 1 tab(s), Oral, Daily, # 30 tab(s), Refills(s) 0, [id number], 179.3, cm, 10/24/24 8:37:00 EDT, Height/Length Dosing, 113.9, kg, 10/24/24 8:37:00 EDT, Weight Dosing 3. Former smoker (Z87.891: Personal history of nicotine dependence) continue not smoking Ordered: meloxicam, 15 mg = 1 tab(s), Oral, Daily, # 30 tab(s), Refills(s) 0, Pharmacy: [facility]/pharmacy #[id number], 179.3, cm, 10/24/24 8:37:00 EDT, Height/Length Dosing, 113.9, kg, 10/24/24 8:37:00 EDT, Weight Dosing Orders: brompheniramine/dextro methorphan/PSE, 5 mL, Oral, QID for cough and congestion, 200 mL, Refill(s) 0, [facility]/pharmacy #[id number], 179.3, cm, 02/21/24 15:12:00 EST, Height/Length Dosing, 115.9, kg, 02/21/24 15:12:00 EST, Weight Dosing Follow-up No qualifying data available Patient Education Hernandez Cyst Problem List/Past Medical History Ongoing Annual physical exam 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 Medications amiodarone 100 mg Tab, 200 mg= 2 tab(s), Oral, Daily atorvastatin 80 mg Tab, 80 mg= 1 tab(s), Oral, Daily Bromfed DM oral syrup, 5 mL, Oral, QID brompheniramine/dextro methorphan/PSE 2 mg-10 mg-30 mg/5 mL oral syrup, 5 mL, Oral, QID digoxin 125 mcg (0.125 mg) Tab docusate sodium 250 mg oral capsule, 250 mg= 1 cap(s), Oral, BID, PRN ezetimibe 10 mg Tab fluticasone Nasal 0.05 mg/inh [place], See Instructions Handicap Placard, See Instructions meloxicam 15 mg Tab, 15 mg= 1 tab(s), Oral, Daily metformin 500 mg Tab, 500 mg= 1 tab(s), Oral, Daily, 3 refills metoprolol 25 mg ER Tab, 25 mg= 1 tab(s), Oral, BID NitroStat 0.4 mg Tab Pantoprazole [address] Tab, 40 mg= 1 tab(s), Oral, Daily ranolazine 1000 mg oral granule, extended release, 1000 mg, Oral, BID Allergies Asendin (Tremor) Bactrim (Rash) Brilinta (Shortness of breath) Garamycin Ophthalmic (Red eye) ciprofloxacin (Headache) Social History Alcohol - Denies Alcohol Use, 08/31/2022 Current. Liquor. Daily., 03/08/2024 Substance Abuse - Denies Substance Abuse, 08/31/2022 Never., 03/08/2024 Tobacco - Denies Tobacco Use, (more content not included)... Normal [facility] Comment on above: Result Comment: Elec tronically Signed By: Liz Brock.br\Date and Time Signed: 10/24/24 09:10 EDT CBC with Auto Differentialon 09-26-2024 Basophils (Bld) [#/Vol] 0.03 10*3/uL [facility] Basophils/100 WBC (Bld) 1 % 0 - 2 % [facility] Eosinophils (Bld) [#/Vol] 0.12 10*3/uL [facility] Eosinophils/100 WBC (Bld) 2 % 1 - 4 % [facility] Erythrocyte distribution width (RBC) [Ratio] 12.7 % 11.8 - 14.4 % [facility] Hematocrit (Bld) [Volume fraction] 43 % 40.7 - 50.3 % [facility] Hemoglobin (Bld) [Mass/Vol] 14.8 g/dL 13.0 - 17.0 g/dL [facility] Immature granulocytes (Bld) [#/Vol] [facility] Immature granulocytes/100 WBC (Bld) 0 % 0 [facility] Interpretation and review of laboratory results Abnormal [facility] Lymphocytes/100 WBC (Bld) 19 % Low 24 - 43 % [facility] Lymphocytes/100 WBC (Bld) 1.08 % Low [facility] MCH (RBC) [Entitic mass] 35.4 pg High 25.2 - 33.5 pg [facility] MCHC (RBC) [Mass/Vol] 34.4 g/dL 28.4 - 34.8 g/dL [facility] MCV (RBC) [Entitic vol] 102.9 fL 82.6 - 102.9 fL [facility] Monocytes/100 WBC (Bld) 10 % 3 - 12 % [facility] Monocytes/100 WBC (Bld) 0.56 % [facility] Neutrophils/100 WBC (Bld) 68 % High 36 - 65 % [facility] Nucleated RBC/100 WBC (Bld) [Ratio] 0 % 0.0 per 100 WBC [facility] Platelet mean volume (Bld) [Entitic vol] 10.3 fL 8.1 - 13.5 fL [facility] Platelets (Bld) [#/Vol] 146 10*3/uL [facility] RBC (Bld) [#/Vol] 4.18 10*6/uL Low 4.21 - 5.7 7 m/uL [facility] Segmented neutrophils/100 WBC (Bld) 3.81 % [facility] WBC other (Bld) [#/Vol] 5.6 [facility] CBC with Diffon 09-26-2024 Abs. Basophil 0.03 k/uL Normal 0.00-0.20 [facility] Comment on above: Performed By: #### F T3, FT4, LIPRF #### [place] [id number] Director Trading: Dilip Luke MD #### CK, CDP, TSH, CP #### [facility] [address] [place] [address] [place] [phone] Director Trading: Mariela Angelo MD Abs.Imm.Granulocyte <0.03 Normal 0.00-0.30 [facility] Comment on above: Performed By: #### F T3, FT4, LIPRF #### [place] [id number] Director Trading: Dilip Luke MD #### CK, CDP, TSH, CP #### [facility] [address] [place] [address] [place] [address] Director Trading: Mariela Angelo MD Abs.Neutrophil (Seg) 3.81 k/uL Normal 1.50-8.10 [facility] Comment on above: Performed By: #### F T3, FT4, LIPRF #### [address] [address] Director Trading: Dilip Luke MD #### CK, CDP, TSH, CP #### [address] [place] [phone] Director Trading: Mariela Angelo MD Basophils/100 WBC (Bld) 1 % Normal 0-2 [facility] Comment on above: Performed By: #### F T3, FT4, LIPRF #### [place] [address] Director Trading: Dilip Luke MD #### CK, CDP, TSH, CP #### [address] [place] [phone] ( Director Trading: Mariela Angelo MD Eosinophils (Bld) [#/Vol] 0.12 10*3/uL Normal 0.00-0.44 [facility] Comment on above: Performed By: #### F T3, FT4, LIPRF #### [place] [address] Director Trading: Dilip Luke MD #### CK, CDP, TSH, CP #### [address] [place] [phone] Director Trading: Mariela Angelo MD Eosinophils/100 WBC (Bld) 2 % Normal 1-4 [facility] Comment on above: Performed By: #### F T3, FT4, LIPRF #### [place] [address] Director Trading: Dilip Luke MD #### CK, CDP, TSH, CP #### [address] [place] [phone] Director Trading: Mariela Angelo MD Erythrocyte distribution width (RBC) [Ratio] 12.7 % Normal 11.8-14.4 [facility] Comment on above: Performed By: #### F T3, FT4, LIPRF #### [address] [address] Director Trading: Dilip Luke MD #### CK, CDP, TSH, CP #### [address] [place] [address] Director Trading: Mariela Angelo MD Hematocrit (Bld) [Volume fraction] 43.0 % Normal 40.7-50.3 [facility] Comment on above: Performed By: #### F T3, FT4, LIPRF #### [address] [address] Director Trading: Dilip Luke MD #### CK, CDP, TSH, CP #### [address] [place] [phone] Director Trading: Mariela Angelo MD Hemoglobin (Bld) [Mass/Vol] 14.8 g/dL Normal 13.0-17.0 [facility] Comment on above: Performed By: #### F T3, FT4, LIPRF #### [address] [address] Director Trading: Dilip Luke MD #### CK, CDP, TSH, CP #### [address] [place] [address] Director Trading: Mariela Angelo MD Immature granulocytes/100 WBC (Bld) 0 % Normal 0 [facility] Comment on above: Performed By: #### F T3, FT4, LIPRF #### [address] [address] Director Trading: Dilip Luke MD #### CK, CDP, TSH, CP #### [address] [place] [phone] Director Trading: Mariela Angelo MD Lymphocytes (Bld) [#/Vol] 1.08 10*3/uL Low 1.10-3.70 [facility] Comment on above: Performed By: #### F T3, FT4, LIPRF #### [address] [address] Director Trading: Dilip Luke MD #### CK, CDP, TSH, CP #### [address] [place] [phone] Director Trading: Mariela Angelo MD Lymphocytes/100 WBC (Bld) 19 % Low 24-43 [facility] Comment on above: Performed By: #### F T3, FT4, LIPRF #### [address] [address] Director Trading: Dilip Luke MD #### CK, CDP, TSH, CP #### [address] [place] [phone] Director Trading: Mariela Angelo MD MCH (RBC) [Entitic mass] 35.4 pg High 25.2-33.5 [facility] Comment on above: Performed By: #### F T3, FT4, LIPRF #### [address] [address] Director Trading: Dilip Luke MD #### CK, CDP, TSH, CP #### [address] [place] [phone] Director Trading: Mariela Angelo MD MCHC (RBC) [Mass/Vol] 34.4 g/dL Normal 28.4-34.8 [facility] Comment on above: Performed By: #### F T3, FT4, LIPRF #### [address] [id number] Director Trading: Dilip Luke MD #### CK, CDP, TSH, CP #### [address] [place] [phone] Director Trading: Mariela Angelo MD MCV (RBC) [Entitic vol] 102.9 fL Normal 82.6-102.9 [facility] Comment on above: Performed By: #### F T3, FT4, LIPRF #### [address] [address] Director Trading: Dilip Luke MD #### CK, CDP, TSH, CP #### [address] [place] [place] [address] Director Trading: Mariela Angelo MD Monocytes (Bld) [#/Vol] 0.56 10*3/uL Normal 0.10-1.20 [facility] Comment on above: Performed By: #### F T3, FT4, LIPRF #### [address] [address] Director Trading: Dilip Luke MD #### CK, CDP, TSH, CP #### [address] [place] [phone] Director Trading: Mariela Angelo MD Monocytes/100 WBC (Bld) 10 % Normal 3-12 [facility] Comment on above: Performed By: #### F T3, FT4, LIPRF #### [address] [address] Director Trading: Dilip Luke MD #### CK, CDP, TSH, CP #### [address] [place] [phone] Director Trading: Mariela Angelo MD Neutrophil (Seg) 68 % High 36-65 [facility] Comment on above: Performed By: #### F T3, FT4, LIPRF #### [address] [address] Director Trading: Dilip Luke MD #### CK, CDP, TSH, CP #### [address] [place] [phone] Director Trading: Mariela Angelo MD NRBC Automated 0.0 per 100 WBC Normal 0.0 [facility] Comment on above: Performed By: #### F T3, FT4, LIPRF #### [address] [address] Director Trading: Dilip Luke MD #### CK, CDP, TSH, CP #### [address] [place] [phone] Director Trading: Mariela Angelo MD Platelet mean volume (Bld) [Entitic vol] 10.3 fL Normal 8.1-13.5 [facility] Comment on above: Performed By: #### F T3, FT4, LIPRF #### [address] [address] Director Trading: Dilip Luke MD #### CK, CDP, TSH, CP #### [address] [place] [phone] Director Trading: Mariela Angelo MD Platelets (Bld) [#/Vol] 146 10*3/uL Normal 138-453 [facility] Comment on above: Performed By: #### F T3, FT4, LIPRF #### [address] [address] Director Trading: Dilip Luke MD #### CK, CDP, TSH, CP #### [address] [place] [phone] Director Trading: Mariela Angelo MD RBC (Bld) [#/Vol] 4.18 10*6/uL Low 4.21-5.77 [facility] Comment on above: Performed By: #### F T3, FT4, LIPRF #### [address] [address] Director Trading: Dilip Luke MD #### CK, CDP, TSH, CP #### [address] [place], [place] [phone] Director Trading: Mariela Angelo MD WBC (Bld) [#/Vol] 5.6 10*3/uL Normal 3.5-11.3 [facility] Comment on above: Performed By: #### F T3, FT4, LIPRF #### [address] [address] Director Trading: Dilip Luke MD #### CK, CDP, TSH, CP #### [address] [place] [address] Director Trading: Mariela Angelo MD [facility] CK [Catalytic activity/Vol] 52 U/L 39 - 308 U/L [facility] Comp Metabolic Profon 2024 Albumin [Mass/Vol] 4.2 g/dL Normal 3.5-5.2 [facility] Comment on above: Performed By: #### F T3, FT4, LIPRF #### [address] [address] Director Trading: Dilip Luke MD #### CK, CDP, TSH, CP #### [address] [place] [address] Director Trading: Mariela Angelo MD Albumin/Glob Ratio 1.5 Normal 1.0-2.5 [facility] Comment on above: Performed By: #### F T3, FT4, LIPRF #### [address] [address] Director Trading: Dilip Luke MD #### CK, CDP, TSH, CP #### [address] [place], [place] [id number] Director Trading: Mariela Angelo MD Alkaline Phos 49 U/L Normal 40-129 [facility] Comment on above: Performed By: #### F T3, FT4, LIPRF #### [place] 582142 [place], [place] [id number] Director Trading: Dilip Luke MD #### CK, CDP, TSH, CP #### [address] [place], [place] [phone] Director Trading: Mariela Angelo MD ALT [Catalytic activity/Vol] 27 U/L Normal 10-50 [facility] Comment on above: Performed By: #### F T3, FT4, LIPRF #### [address] [id number] Director Trading: Dilip Luke MD #### CK, CDP, TSH, CP #### [address] [place], [place] [id number] Director Trading: Mariela Angelo MD Anion gap [Moles/Vol] 14 mmol/L Normal 9-16 [facility] Comment on above: Performed By: #### F T3, FT4, LIPRF #### [address] [address] Director Trading: Dilip Luke MD #### CK, CDP, TSH, CP #### [address] [place], [place] [phone] Director Trading: Mariela Angelo MD AST [Catalytic activity/Vol] 29 U/L Normal 10-50 [facility] Comment on above: Performed By: #### F T3, FT4, LIPRF #### [address] [address] Director Trading: Dilip Luke MD #### CK, CDP, TSH, CP #### [address] [place], [place] [id number] Director Trading: Mariela Angelo MD Bilirubin [Mass/Vol] 0.5 mg/dL Normal 0.00-1.20 [facility] Comment on above: Performed By: #### F T3, FT4, LIPRF #### [address] [id number] Director Trading: Dilip Luke MD #### CK, CDP, TSH, CP #### [address] [place] [address] Director Trading: Mariela Angelo MD BUN/CRE Ratio 17 Normal 9-20 [facility] Comment on above: Performed By: #### F T3, FT4, LIPRF #### [address] [phone] Director Trading: Dilip Luke MD #### CK, CDP, TSH, CP #### [address] [place], [place] [id number] Director Trading: Mariela Angelo MD Calcium [Mass/Vol] 9.2 mg/dL Normal 8.6-10.4 [facility] Comment on above: Performed By: #### F T3, FT4, LIPRF #### [address] [address] Director Trading: Dilip Luke MD #### CK, CDP, TSH, CP #### [address] [place] [address] Director Trading: Mariela Angelo MD Chloride [Moles/Vol] 104 mmol/L Normal 98-107 [facility] Comment on above: Performed By: #### F T3, FT4, LIPRF #### [address] [address] Director Trading: Dilip Luke MD #### CK, CDP, TSH, CP #### [address] [place] [address] Director Trading: Mariela Angelo MD CO2 [Moles/Vol] 21 mmol/L Normal 20-31 [facility] Comment on above: Performed By: #### F T3, FT4, LIPRF #### [facility] [address] [place], [place] [id number] Director Trading: Dilip Luke MD #### CK, CDP, TSH, CP #### [facility] [address] [place] [address] Dr. [place], [place] [id number] Director Trading: Mariela Angelo MD Creatinine [Mass/Vol] 1.3 mg/dL High 0.70-1.20 [facility] Comment on above: Performed By: #### F T3, FT4, LIPRF #### [address] [phone] Director Trading: Dilip Luke MD #### CK, CDP, TSH, CP #### [address] [place], [place] [phone] Director Trading: Mariela Angelo MD GFR/1.73 sq M.predicted among non-blacks MDRD (S/P/Bld) [Vol rate/Area] 57 mL/min/{1.73_m2} Low >60 [facility] Comment on above: Result Comment: These results are not intended for [...] following therapy that affects renal tubular secretion. Performed By: #### F T3, FT4, LIPRF #### [address] [address] Director Trading: Dilip Luke MD #### CK, CDP, TSH, CP #### [address] [place], [place] 1938383 Director Trading: Mariela Angelo MD Glucose [Mass/Vol] 139 mg/dL High 74-99 [facility] Comment on above: Performed By: #### F T3, FT4, LIPRF #### [address] [address] Director Trading: Dilip Luke MD #### CK, CDP, TSH, CP #### [address] [place], [place] [phone] Director Trading: Mariela Angelo MD Potassium [Moles/Vol] 4.8 mmol/L Normal 3.7-5.3 [facility] Comment on above: Performed By: #### F T3, FT4, LIPRF #### [address] [address] Director Trading: Dilip Luke MD #### CK, CDP, TSH, CP #### [address] [place], [place] [phone] Director Trading: Mariela Angelo MD Protein [Mass/Vol] 7.0 g/dL Normal 6.6-8.7 [facility] Comment on above: Performed By: #### F T3, FT4, LIPRF #### [address] [address] Director Trading: Dilip Luke MD #### CK, CDP, TSH, CP #### [address] [place], [place] [phone] Director Trading: Mariela Angelo MD Sodium [Moles/Vol] 139 mmol/L Normal 136-145 [facility] Comment on above: Performed By: #### F T3, FT4, LIPRF #### [address] [address] Director Trading: Dilip Luke MD #### CK, CDP, TSH, CP #### [address] [place] [address] Director Trading: Mariela Angelo MD Urea nitrogen [Mass/Vol] 22 mg/dL Normal 8-23 [facility] Comment on above: Performed By: #### F T3, FT4, LIPRF #### [facility] [address] [place] [address] Director Trading: Dilip Luke MD #### CK, CDP, TSH, CP #### [facility] [address] [place] [address] Director Trading: Mariela Angelo MD Comprehensive Metabolic Pane [facility] 09-26-2024 Albumin [Mass/Vol] 4.2 g/dL 3.5 - 5.2 g/dL [facility] Albumin/Globulin [Mass ratio] 1.5 {ratio} 1.0 - 2.5 [facility] ALP [Catalytic activity/Vol] 49 U/L 40 - 129 U/L [facility] ALT [Catalytic activity/Vol] 27 U/L 10 - 50 U/L [facility] Anion gap [Moles/Vol] 14 mmol/L 9 - 16 mmol/L [facility] AST [Catalytic activity/Vol] 29 U/L 10 - 50 U/L [facility] Bilirubin [Mass/Vol] 0.5 mg/dL 0.00 - 1.20 mg/dL [facility] Calcium [Mass/Vol] 9.2 mg/dL 8.6 - 10. 4 mg/dL [facility] Chloride [Moles/Vol] 104 mmol/L 98 - 10 7 mmol/L [facility] CO2 [Moles/Vol] 21 mmol/L 20 - 31 mmol/L [facility] Creatinine [Mass/Vol] 1.3 mg/dL High 0.70 - 1.20 mg/dL [facility] Est, Glom Filt Rate 57 Low - PINF [facility] Comment on above: These results are not intended for use [...] following therapy that affects renal tubular secretion. Glucose [Mass/Vol] 139 mg/dL High 74 - 99 mg/dL [facility] Interpretation and review of laboratory results Abnormal [facility] Potassium [Moles/Vol] 4.8 mmol/L 3.7 - 5.3 mmol/L [facility] Protein [Mass/Vol] 7 g/dL 6.6 - 8.7 g/dL [facility] Sodium [Moles/Vol] 139 mmol/L 136 - 145 mmol/L [facility] Urea nitrogen [Mass/Vol] 22 mg/dL 8 - 23 mg/dL [facility] Urea nitrogen/Creatinine [Mass ratio] 17 mg/mg 9 - 20 [facility] Creatine Kinaseon 09-26-2024 CK [Catalytic activity/Vol] 52 U/L Normal 39-308 [facility] Comment on above: Performed By: #### F T3, FT4, LIPRF #### [facility] [place] [address] [place], [place] [id number] Director Trading: Dilip Luke MD #### CK, CDP, TSH, CP #### [facility] [address] [place] [address] Director Trading: Mariela Angelo MD Lipid Prof, Fastingon 2024 Cholesterol [Mass/Vol] 151 mg/dL Normal 0-199 [facility] Comment on above: Result Comment: Cholesterol Guidelines: <200 Desirable 200-240 Borderline >240 Undesirable Performed By: #### C P, TSH, CK #### [facility] [address] [place] [address] Director Trading: Mariela Angelo MD #### LIPR #### [facility] [address] [place], [place] [id number] Director Trading: Dilip Luke MD Cholesterol in HDL [Mass/Vol] 59 mg/dL Normal >40 [facility] Comment on above: Result Comment: HDL Guidelines: <40 Undesirable 40-59 Borderline >59 Desirable Performed By: #### C P, TSH, CK #### [facility] [address] [place], [place] [id number] Director Trading: Mariela Angelo MD #### LIPR #### [address] [id number] Director Trading: Dilip Luke MD Cholesterol in LDL [Mass/Vol] 57 mg/dL Normal 0-100 [facility] Comment on above: Result Comment: LDL Guidelines: <100 Desirable 100-129 Near to/above Desirable 130-159 Borderline >159 Undesirable Direct (measured) LDL and calculated LDL are not interchangeable tests. Performed By: #### C P, TSH, CK #### [address] [place], [place] [id number] Director Trading: Mariela Angelo MD #### LIPR #### [address] [id number] Director Trading: Dilip Luke MD Cholesterol in VLDL [Mass/Vol] 35 mg/dL High 1-30 [facility] Comment on above: Performed By: #### C P, TSH, CK #### [facility] [address] [place] [address] Dr. [place], [place] [id number] Director Trading: Mariela Angelo MD #### LIPR #### [address] [address] Director Trading: Dilip Luke MD Cholesterol.total/Chol esterol in HDL [Mass ratio] 2.6 {ratio} Normal <5.0 [facility] Comment on above: Performed By: #### C P, TSH, CK #### [facility] [address] [place] [address] Dr[address] [place], [place] [id number] Director Trading: Mariela Angelo MD #### LIPR #### [address] [place] [id number] Director Trading: Dilip Luke MD Triglyceride,Fasting 177 mg/dL High 0-149 [facility] Comment on above: Result Comment: Triglyceride Guidelines: <150 Desirable 150-199 Borderline 200-499 High >499 Very high Based on AHA Guidelines for fasting triglyceride, December 2011. Performed By: #### C P, TSH, CK #### [facility] [address] [place] [address] Director Trading: Mariela Angelo MD #### LIPR #### [facility] [address] [place], [place] [id number] Director Trading: Dilip Luke MD Lipid, Fastingon 09-26-2024 Cholesterol [Mass/Vol] 151 mg/dL 0 - 1 99 mg/dL [facility] Comment on above: Cholesterol Guidelines: <200 Desirable 200-240 Borderline >240 Undesirable Cholesterol in HDL [Mass/Vol] 59 mg/dL 40 - PINF mg/dL [facility] Comment on above: HDL Guidelines: <40 Undesirable 40-59 Borderline >59 Desirable Cholesterol in LDL [Mass/Vol] 57 mg/dL 0 - 100 mg/dL [facility] Comment on above: LDL Guidelines: <100 Desirable 100-129 Near to/above Desirable 130-159 Borderline >159 Undesirable Direct (measured) LDL and calculated LDL are not interchangeable tests. Cholesterol in VLDL [Mass/Vol] 35 mg/dL High 1 - 30 mg/dL [facility] Cholesterol.total/Chol esterol in HDL [Mass ratio] 2.6 {ratio} NINF - 5.0 [facility] Interpretation and review of laboratory results Abnormal [facility] Triglyceride [Mass/Vol] 177 mg/dL High 0 - 149 mg/dL [facility] Comment on above: Triglyceride Guidelines: <150 Desirable 150-199 Borderline 200-499 High >499 Very high Based on AHA Guidelines for fasting triglyceride, December 2011. No Panel Informationon 09-26 [facility] T3, Freeon 09-26-2024 Free T3 [Mass/Vol] 2.82 pg/mL 2.00 - 4. 40 pg/mL [facility] Free T3 [Mass/Vol] 2.82 pg/mL Normal 2.00-4.40 [facility] Comment on above: Performed By: #### F T3, FT4, LIPRF #### [facility] [address] [place], [place] [id number] Director Trading: Dilip Luke MD #### CK, CDP, TSH, CP #### [address] [place] [address] Director Trading: Mariela Angelo MD T4, Freeon 09-26-2024 Free T4 [Mass/Vol] 1.2 ng/dL 0.92 - 1. 68 ng/dL [facility] TSHon 09-26-2024 TSH Qn 1.16 m[IU]/L [facility] Thyroid Stim. Horm.on 2024 Thyroid Stim. Horm. 1.16 uIU/mL Normal 0.27-4.20 [facility] Comment on above: Performed By: #### F T3, FT4, LIPRF #### [address] [id number] Director Trading: Dilip Luke MD #### CK, CDP, TSH, CP #### [address] [place] [address] Director Trading: Mariela Angelo MD Thyroxine, Freeon 09-26-2024 Thyroxine, Free 1.2 ng/dL Normal 0.92-1.68 [facility] Comment on above: Performed By: #### F T3, FT4, LIPRF #### [address] [id number] Director Trading: Dilip Luke MD #### CK, CDP, TSH, CP #### [address] [place] [address] Director Trading: Mariela Angelo MD No Panel InformationOrdered By: Josette Muñoz on 04-04-2024 Baseline Diastolic BP 74 mmHg Gaby Maana Mobile Phone: Baseline HR 65 BPM Gaby Cain [employer] Phone: Baseline Systolic BP 136 mmHg Gaby AlexisCodemasters Phone: Nuc Stress EF 72 % Gaby Maana Mobile Phone: Stress Diastolic BP 80 mmHg [place] [employer] Phone: Stress Estimated Workload 1.3 METS Gaby Maana Mobile Phone: Stress Peak HR 82 BPM [place] [employer] Phone: Stress Percent HR Achieved 55 % Gaby Maana Mobile Phone: Stress Rate Pressure Product 31614 BPM*mmHg Gaby Maana Mobile Phone: Stress Systolic BP 168 mmHg [place] [employer] Phone: Stress Target HR 148 bpm [place] [employer] Work Phone: TID 0.94 Gaby Maana Mobile Phone: Gaby Maana Mobile Phone: No Panel Informationon 04-04 Stress Combined Conclusion: The study is negative for myocardial ischemia. Findings suggest a low risk of cardiac events. Stress Function: Left ventricular function post-stress is normal. Post-stress ejection fraction is 72%. The stress end diastolic cavity size is normal. Perfusion Comments: Prone images were obtained. Prone imaging was helpful in correcting soft tissue attenuation. LV perfusion is normal. There is no evidence of inducible ischemia. Perfusion Defect: There is a mild severity left ventricular stress perfusion defect that is small to medium in size present in the inferior segment(s). This defect was visualized during the rest phase of imaging. The defect appears to be an artifact. Perfusion Conclusion: There is no evidence of transient ischemic dilation (TID). TID ratio is 0.94. Stress Test: A pharmacological stress test was performed using regadenoson (Lexiscan). Low level exercise was used during the pharmacological stress test. The patient reported dizziness and dyspnea during the stress test. The patient reached the end of the protocol. Blood pressure demonstrated a normal response and heart rate demonstrated a normal response to stress. The patient's heart rate recovery was normal. Resting ECG: The ECG shows sinus rhythm. The ECG shows premature atrial contractions. Stress ECG: Arrhythmias during stress: frequent PACs. Arrhythmias during recovery: frequent PACs. The stress ECG was negative for ischemia. Quality of the study: Adequate, partially limited by subdiaphragmatic attenuation artifact. Relatively normal myocardial perfusion study with only inferior artifact. Summed stress score is Zero. Gated the SPECT showed normal left ventricular cavity size and wall motion. Calculated ejection fraction 72%. No evidence of stress-induced transient ischemic dilatation of the left ventricle. Overall, these results are most consistent with a low risk for significant ischemia. Depending on the patient symptoms and level of clinical suspicion, aggressive medical management vs. additional testing by coronary angiography may be indicated. The sensitivity for detecting ischemia on this test may have been reduced due the patient being on a beta epi Resting ECG The ECG shows sinus rhythm. The ECG shows premature atrial contractions. Stress Findings A pharmacological stress test was performed using regadenoson (Lexiscan). Low level exercise was used during the pharmacological stress test. The patient reported dizziness and dyspnea during the stress test. The patient reached the end of the protocol. Blood pressure demonstrated a normal response and heart rate demonstrated a normal response to stress. The patient's heart rate recovery was normal. Stress ECG Arrhythmias during stress: frequent PACs. Arrhythmias during recovery: frequent PACs. The stress ECG was negative for ischemia. Nuclear Study Quality Nuclear Cardiac SPECT gated stress then rest with tomographic imaging/tomography utilized for the myocardial perfusion procedure. Lexiscan was used as the stressing method and agent. (Lexiscan given via a 10 - 20 sec injection). Two day myocardial perfusion study (04/03/2024 and 04/04/2024). This Single Photon Emission Computer Tomography (SPECT) study utilized tomographic imaging/tomography for the tomographic myocardial perfusion imaging performed during this study. Perfusion Comments Prone images were obtained. Prone imaging was helpful in correcting soft tissue attenuation. LV perfusion is normal. There is no evidence of inducible ischemia. Perfusion Defect There is a mild severity left ventricular stress perfusion defect that is small to medium in size present in the inferior segment(s). This defect was visualized during the rest phase of imaging. The defect appears to be an artifact. Perfusion Defect Conclusion There is no evidence of transient ischemic dilation (TID). TID ratio is 0.94. Stress Function Comments Left ventricular function post-stress is normal. Post-stress ejection fraction is 72%. The stress end diastolic cavity size is normal. Stress Combined Conclusion The study is negative for myocardial ischemia. Findings suggest a low risk of cardiac events. [facility] CV RPACS STRESS CKon 04-03-2024 CK [Catalytic activity/Vol] 45 U/L 39 - 308 U/L [facility] Comp Metabolic Profon 2024 Albumin [Mass/Vol] 4.1 g/dL Normal 3.5-5.2 [facility] Comment on above: Performed By: #### C P, TSH, CK #### [facility] [address] [place] [address] Director Trading: Mariela Angelo MD #### LIPR #### [address] [id number] Director Trading: Dilip Luke MD Albumin/Glob Ratio 1.4 Normal 1.0-2.5 [facility] Comment on above: Performed By: #### C P, TSH, CK #### [facility] [address] [place] [address] Director Trading: Mariela Angelo MD #### LIPR #### [address] [id number] Director Trading: Dilip Luke MD Alkaline Phos 53 U/L Normal 40-129 [facility] Comment on above: Performed By: #### C P, TSH, CK #### [facility] [address] [place] [address] Director Trading: Mariela Angelo MD #### LIPR #### [address] [id number] Director Trading: Dilip Luke MD ALT [Catalytic activity/Vol] 22 U/L Normal 10-50 [facility] Comment on above: Performed By: #### C P, TSH, CK #### [facility] [address] [place], [place] [phone] Director Trading: Mariela Angelo MD #### LIPR #### [address] [id number] Director Trading: Dilip Luke MD Anion gap [Moles/Vol] 10 mmol/L Normal 9-16 [facility] Comment on above: Performed By: #### C P, TSH, CK #### [facility] [address] [place], [place] [id number] Director Trading: Mariela Angelo MD #### LIPR #### [address] [phone] Director Trading: Dilip Luke MD AST [Catalytic activity/Vol] 20 U/L Normal 10-50 [facility] Comment on above: Performed By: #### C P, TSH, CK #### [address] [place], [place] [id number] Director Trading: Mariela Angelo MD #### LIPR #### [address] [id number] Director Trading: Dilip Luke MD Bilirubin [Mass/Vol] 0.5 mg/dL Normal 0.00-1.20 [facility] Comment on above: Performed By: #### C P, TSH, CK #### [facility] [address] [place], [place] [id number] Director Trading: Mariela Angelo MD #### LIPR #### [address] [id number] Director Trading: Dilip Luke MD BUN/CRE Ratio 16 Normal 9-20 [facility] Comment on above: Performed By: #### C P, TSH, CK #### [facility] [address] [place] [phone] Director Trading: Mariela Angelo MD #### LIPR #### [address] [id number] Director Trading: Dilip Luke MD Calcium [Mass/Vol] 9.1 mg/dL Normal 8.6-10.4 [facility] Comment on above: Performed By: #### C P, TSH, CK #### [facility] [address] [place] [address] [place]. [place] [phone] Director Trading: Mariela Angelo MD #### LIPR #### [address] [id number] Director Trading: Dilip Luke MD Chloride [Moles/Vol] 105 mmol/L Normal 98-107 [facility] Comment on above: Performed By: #### C P, TSH, CK #### [address] [place] [id number] ( Director Trading: Mariela Angelo MD #### LIPR #### [address] [id number] Director Trading: Dilip Luke MD CO2 [Moles/Vol] 25 mmol/L Normal 20-31 [facility] Comment on above: Performed By: #### C P, TSH, CK #### [address] [place] [phone] Director Trading: Mariela Angelo MD #### LIPR #### [address] [id number] Director Trading: Dilip Luke MD Creatinine [Mass/Vol] 1.3 mg/dL High 0.70-1.20 [facility] Comment on above: Performed By: #### C P, TSH, CK #### [address] [place] [phone] Director Trading: Mariela Angelo MD #### LIPR #### [place] [id number] [place], [place] [id number] Director Trading: Dilip Luke MD GFR/1.73 sq M.predicted among non-blacks MDRD (S/P/Bld) [Vol rate/Area] 58 mL/min/{1.73_m2} Low >60 [facility] Comment on above: Result Comment: These results are not intended for [...] following therapy that affects renal tubular secretion. Performed By: #### C P, TSH, CK #### [facility] [address] [place] [address] [place] [address] Director Trading: Mariela Angelo MD #### LIPR #### [address] [id number] Director Trading: Dilip Luke MD Glucose [Mass/Vol] 137 mg/dL High 74-99 [facility] Comment on above: Performed By: #### C P, TSH, CK #### [facility] [address] [place] [address] [place] [address] Director Trading: Mariela Angelo MD #### LIPR #### [address] [id number] Director Trading: Dilip Luke MD Potassium [Moles/Vol] 4.8 mmol/L Normal 3.7-5.3 [facility] Comment on above: Performed By: #### C P, TSH, CK #### [facility] [address] [place] [address] [place] [address] Director Trading: Mariela Angelo MD #### LIPR #### [address] [id number] Director Trading: Dilip Luke MD Protein [Mass/Vol] 7.0 g/dL Normal 6.6-8.7 [facility] Comment on above: Performed By: #### C P, TSH, CK #### [facility] [address] [place], [place] [phone] Director Trading: Mariela Angelo MD #### LIPR #### [facility] [address] [place], [place] [id number] Director Trading: Dilip Luke MD Sodium [Moles/Vol] 140 mmol/L Normal 136-145 [facility] Comment on above: Performed By: #### C P, TSH, CK #### [facility] [address] [place], [place] [phone] Director Trading: Mariela Angelo MD #### LIPR #### [place] [id number] [place] [address] Director Trading: Dilip Luke MD Urea nitrogen [Mass/Vol] 21 mg/dL Normal 8-23 [facility] Comment on above: Performed By: #### C P, TSH, CK #### [facility] [address] [place] [address] Dr. [place], [place] [phone] Director Trading: Mariela Angelo MD #### LIPR #### [place] [phone] [place] [address] Director Trading: Dilip Luke MD Comprehensive Metabolic Pane david 04-03-2024 Albumin [Mass/Vol] 4.1 g/dL 3.5 - 5.2 g/dL [facility] Albumin/Globulin [Mass ratio] 1.4 {ratio} 1.0 - 2.5 [facility] ALP [Catalytic activity/Vol] 53 U/L 40 - 129 U/L [facility] ALT [Catalytic activity/Vol] 22 U/L 10 - 50 U/L [facility] Anion gap [Moles/Vol] 10 mmol/L 9 - 16 mmol/L [facility] AST [Catalytic activity/Vol] 20 U/L 10 - 50 U/L [facility] Bilirubin [Mass/Vol] 0.5 mg/dL 0.00 - 1.20 mg/dL [facility] Calcium [Mass/Vol] 9.1 mg/dL 8.6 - 10. 4 mg/dL [facility] Chloride [Moles/Vol] 105 mmol/L 98 - 10 7 mmol/L [facility] CO2 [Moles/Vol] 25 mmol/L 20 - 31 mmol/L [facility] Creatinine [Mass/Vol] 1.3 mg/dL High 0.70 - 1.20 mg/dL [facility] Est, Glomarcos Filt Rate 58 Low - PINF [facility] Comment on above: These results are not intended for use [...] following therapy that affects renal tubular secretion. Glucose [Mass/Vol] 137 mg/dL High 74 - 99 mg/dL [facility] Interpretation and review of laboratory results Abnormal [facility] Potassium [Moles/Vol] 4.8 mmol/L 3.7 - 5.3 mmol/L [facility] Protein [Mass/Vol] 7.0 g/dL 6.6 - 8.7 g/dL [facility] Sodium [Moles/Vol] 140 mmol/L 136 - 145 mmol/L [facility] Urea nitrogen [Mass/Vol] 21 mg/dL 8 - 23 mg/dL [facility] Urea nitrogen/Creatinine [Mass ratio] 16 mg/mg 9 - 20 [facility] Creatine Kinaseon 04-03-2024 CK [Catalytic activity/Vol] 45 U/L Normal 39-308 [facility] Comment on above: Performed By: #### C P, TSH, CK #### [facility] [address] [place] [address] Director Trading: Mariela Angelo MD #### LIPR #### [facility] [place] [address] [place] [address] Director Trading: Dilip Luke MD Lipid Panelon 04-03-2024 Cholesterol [Mass/Vol] 160 mg/dL 0 - 1 99 mg/dL [facility] Comment on above: Cholesterol Guidelines: <200 Desirable 200-240 Borderline >240 Undesirable Cholesterol in HDL [Mass/Vol] 64 mg/dL 40 - PINF mg/dL [facility] Comment on above: HDL Guidelines: <40 Undesirable 40-59 Borderline >59 Desirable Cholesterol in LDL [Mass/Vol] 68 mg/dL 0 - 100 mg/dL [facility] Comment on above: LDL Guidelines: <100 Desirable 100-129 Near to/above Desirable 130-159 Borderline >159 Undesirable Direct (measured) LDL and calculated LDL are not interchangeable tests. Cholesterol in VLDL [Mass/Vol] 28 mg/dL 1 - 30 mg/dL [facility] Cholesterol.total/Chol esterol in HDL [Mass ratio] 2.5 {ratio} [facility] Triglyceride [Mass/Vol] 141 mg/dL NINF - 150 mg/dL [facility] Comment on above: Triglyceride Guidelines: <150 Desirable 150-199 Borderline 200-499 High >499 Very high Based on AHA Guidelines for fasting triglyceride, December 2011. [facility] Lipid Profileon 04-03-2024 Cholesterol [Mass/Vol] 160 mg/dL Normal 0-199 [facility] Comment on above: Result Comment: Cholesterol Guidelines: <200 Desirable 200-240 Borderline >240 Undesirable Performed By: #### C P, TSH, CK #### [facility] [address] [place] [address] Director Trading: Mariela Angelo MD #### LIPR #### [facility] [place] [address] [place] [address] Director Trading: Dilip Luke MD Cholesterol in HDL [Mass/Vol] 64 mg/dL Normal >40 [facility] Comment on above: Result Comment: HDL Guidelines: <40 Undesirable 40-59 Borderline >59 Desirable Performed By: #### C P, TSH, CK #### [facility] [address] [place] [address] [place] [address] Director Trading: Mariela Angelo MD #### LIPR #### [address] [address] Director Trading: Dilip Luke MD Cholesterol in LDL [Mass/Vol] 68 mg/dL Normal 0-100 [facility] Comment on above: Result Comment: LDL Guidelines: <100 Desirable 100-129 Near to/above Desirable 130-159 Borderline >159 Undesirable Direct (measured) LDL and calculated LDL are not interchangeable tests. Performed By: #### C P, TSH, CK #### [address] [place] [phone] Director Trading: Mariela Angelo MD #### LIPR #### [address] [address] Director Trading: Dilip Luke MD Cholesterol in VLDL [Mass/Vol] 28 mg/dL Normal 1-30 [facility] Comment on above: Performed By: #### C P, TSH, CK #### [address] [place], [place] [phone] Director Trading: Mariela Angelo MD #### LIPR #### [address] [address] Director Trading: Dilip Luke MD Cholesterol.total/Chol esterol in HDL [Mass ratio] 2.5 {ratio} Normal [facility] Comment on above: Performed By: #### C P, TSH, CK #### [facility] [address] [place] [address] Dr. [place], [place] [phone] Director Trading: Mariela Angelo MD #### LIPR #### [address] [address] Director Trading: Dilip Luke MD Triglyceride [Mass/Vol] 141 mg/dL Normal <150 [facility] Comment on above: Result Comment: Triglyceride Guidelines: <150 Desirable 150-199 Borderline 200-499 High >499 Very high Based on AHA Guidelines for fasting triglyceride, December 2011. Performed By: #### C P, TSH, CK #### [facility] [address] [place] [address] Director Trading: Mariela Angelo MD #### LIPR #### [facility] [place] [address] [place] [address] Director Trading: Dilip Luke MD No Panel Informationon 04-03 [facility] Radiology Study observation (narrative) [facility] TSHon 04-03-2024 TSH Qn 1.24 m[IU]/L [facility] Thyroid Stim. Horm.on 2024 Thyroid Stim. Horm. 1.24 uIU/mL Normal 0.27-4.20 [facility] Comment on above: Performed By: #### C P, TSH, CK #### [facility] [address] [place] [address] Director Trading: Mariela Angelo MD #### LIPR #### [facility] [place] [address] [place] [address] Director Trading: Dilip Luke MD Ambulatory Visit Summaryon 1 Ambulatory Visit Summary Ambulatory Visit Summary MARIELA CORTEZ :1950 Visit Date:03/13/2024 Ambulatory Visit Instructions Your Diagnosis BMI 35.0-35.9,adult Obesity (BMI 35.0-39.9 without comorbidity) Severe obesity (BMI 35.0-39.9) with comorbidity Nonsmoker Your Care Team Attending Physician - Liz Brock Primary Care Physician - Liz Brock This Is Your Medications List Misc Prescription (Handicap Placard) amiodarone (amiodarone 100 mg Tab) atorvastatin (atorvastatin 80 mg Tab) brompheniramine/dextro methorphan/PSE (Bromfed DM oral syrup) docusate (docusate sodium 250 mg oral capsule) ezetimibe (ezetimibe 10 mg Tab) metformin (metformin 500 mg Tab) metoprolol (metoprolol 25 mg ER Tab) nitroglycerin (NitroStat 0.4 mg Tab) pantoprazole (Pantoprazole [address] Tab) ranolazine (ranolazine 1000 mg oral granule, extended release) Procedures Performed Stent (2022), Tonsillectomy, Umbilical hernia. Discharge Vitals Temperature (Tympanic) 36.1 ???C Heart Rate (Peripheral) 66 Respiratory Rate 18 Blood Pressure 152/90 Height 179.3 cm Height 71 in Weight 114.7 kg Weight 252.87 lb BMI 35.68 Medications What How Much When Why Instructions Unchanged amiodarone (amiodarone 100 mg Tab) 2 Tablets By Mouth Every day Unchanged atorvastatin (atorvastatin 80 mg Tab) 1 Tablets By Mouth Every day TAKE 1 TABLET BY MOUTH ONCE DAILY Unchanged brompheniramine/ dextromethorphan/ PSE (Bromfed DM oral syrup) 5 Milliliter By Mouth 4 times a day as needed for for cough and congestion Atherosclerotic heart disease of [place] coronary artery without angina pectoris Shortness of breath Dysrhythmia Unchanged docusate (docusate sodium 250 mg oral capsule) 1 Capsules By Mouth 2 times a day as needed for for constipation Unchanged ezetimibe (ezetimibe 10 mg Tab) TAKE 1 TABLET BY MOUTH ONCE DAILY Unchanged metformin (metformin 500 mg Tab) 1 Tablets By Mouth Every day Duration: 90 Days Unchanged metoprolol (metoprolol 25 mg ER Tab) 1 Tablets By Mouth 2 times a day Unchanged Misc Prescription (Handicap Placard) See instructions Atherosclerotic heart disease of [place] coronary artery without angina pectoris Shortness of breath Dysrhythmia Greater than 5 years Unchanged nitroglycerin (NitroStat 0.4 mg Tab) Unchanged pantoprazole (Pantoprazole [address] Tab) 1 Tablets By Mouth Every day Unchanged ranolazine (ranolazine 1000 mg oral granule, extended release) 1,000 Milligram By Mouth 2 times a day Allergies Asendin (Tremor) Bactrim (Rash) Brilinta (Shortness of breath) Garamycin Ophthalmic (Red eye) ciprofloxacin (Headache) Problems Ongoing - Any problem that you are currently receiving treatment for. Annual physical exam Atherosclerotic heart disease of [place] coronary artery without angina pectoris BMI 35.0-35.9,adult BMI 36.0-36.9,adult Cough Disorder of prostate Dysrhythmia HTN (hypertension) Hyperlipidemia No transfusions per jain beliefs Nonsmoker Obesity (BMI 30-39.9) Obesity (BMI 35.0-39.9 without comorbidity) Pure hypercholesterolemia Severe obesity (BMI 35.0-39.9) with comorbidity Shortness of breath Type 2 diabetes mellitus without complication Patient Survey You may receive a survey via text or e-mail asking about your office visit. Please share your experience with us by completing your survey. We appreciate your feedback and thank you for choosing us for your care. Normal [facility] Family Medicine Office/Clini c Noteon 03-13-2024 Family Medicine Office/Clinic Note Family Medicine Office/Clinic Note Chief Complaint ER follow up HPI Staff Pt presents today for [facility]: [facility] Symptoms the patient presented with: chest pain Current concerns: calcified artery on brain found while in ER. Wants to know what is next. Still has cough & sinus drainage. Seen in our office 02/27 for sick visit. Finished meds. Did feel better for 1 wk. Still taking cough syrup. History of Present Illness pt went to ER to rule out heart attack. 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 Review of Systems PHQ Score Initial Depression Screen Score: 0 SCORE Physical Exam Vitals & Measurements T: 36.1 ???C(Tympanic) HR: 66(Peripheral) RR: 18 BP: 152/90 SpO2: 97% HT: 71 in HT: 179.3 cm WT: 114.7 kg WT: 252.87 lb BMI: 35.68 General: alert, no acute distress ENMT: oral mucosa moist, no pharyngeal erythema or exudate, RIght TM bulging with fluid and red Cardiovascular: regular rate and rhythm, normal peripheral perfusion Respiratory: Lungs CTA, respirations non labored Extremities: no deformity, no trauma Neurological: oriented x 4, LOC appropriate for age, CN II-XII intact, motor strength equal & normal bilaterally, speech normal Assessment/Plan 1. Hospital discharge follow-up (Z09: Encounter for follow-up examination after completed treatment for conditions other than malignant neoplasm) pt had an episode of dizziness, garbled speech. heat attack and stroke were both ruled out at ER. pt is scheduled to see cardiology on 03/27. will run u/a just to make sure the confusion and dizziness is not from UTI. u/a was negative. 2. Right otitis media (H66.91: Otitis media, unspecified, right ear) right otitis media noted on exam today. TM is bulging and red. pt had a episode of dizziness before going to ER. kenalog given in office today 3. Sinusitis (J32.9: Chronic sinusitis, unspecified) sinus congestion and tenderness. nasal turbinates red and swollen Ordered: amoxicillin-clavulanat e, = 1 tab(s), Oral, q12hr, X 7 day(s), # 14 tab(s), Refills(s) 0, Pharmacy: [facility]/pharmacy #[id number], 179.3, cm, 03/13/24 10:37:00 EST, Height/Length Dosing, 114.7, kg, 03/13/24 10:37:00 EST, Weight Dosing fluticasone nasal, 2 spray(s), Nasal, Daily, 16 gram, Refill(s) 0, each nostril, [facility]/pharmacy #[id number], 179.3, cm, 03/13/24 10:37:00 EST, Height/Length Dosing, 114.7, kg, 03/13/24 10:37:00 EST, Weight Dosing UA with Cult Rflx 4. Dizziness (R42: Dizziness and giddiness) pt had an episode of dizziness and states his speech was garbled. she thought he was having a stroke. when they did CT they found calcification of artery in brain. discussed referral to neurology to follow up on CT findings. pt would like to get this sinus infection, fluid behind ear drums cleared up before he goes through with seeing neurology. 5. 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 pt would like to hold off until he is feeling better. 6. BMI 35.0-35.9,adult (Z68.35: Body mass index [BMI] 35.0-35.9, adult) BMI education given Ordered: amoxicillin-clavulanat e, = 1 tab(s), Oral, q12hr, X 7 day(s), # 14 tab(s), Refills(s) 0, [id number] 179.3, cm, 03/13/24 10:37:00 EST, Height/Length Dosing, 114.7, kg, 03/13/24 10:37:00 EST, Weight Dosing fluticasone nasal, 2 spray(s), Nasal, Daily, 16 gram, Refill(s) 0, each nostril, [id number] 179.3, cm, 03/13/24 10:37:00 EST, Height/Length Dosing, 114.7, kg, 03/13/24 10:37:00 EST, Weight Dosing UA with Cult Rflx 7. Obesity (BMI 35.0-39.9 without comorbidity) (E66.9: Obesity, unspecified) BMI education given Ordered: amoxicillin-clavulanat e, = 1 tab(s), Oral, q12hr, X 7 day(s), # 14 tab(s), Refills(s) 0, [id number], 179.3, cm, 03/13/24 10:37:00 EST, Height/Length Dosing, 114.7, kg, 03/13/24 10:37:00 EST, Weight Dosing fluticasone nasal, 2 spray(s), Nasal, Daily, 16 gram, Refill(s) 0, each nostril, [id number] 179.3, cm, 03/13/24 10:37:00 EST, Height/Length Dosing, 114.7, kg, 03/13/24 10:37:00 EST, Weight Dosing UA with Cult Rflx 8. Nonsmoker (Z78.9: Other specified health status) continue not smoking Ordered: amoxicillin-clavulanat e, = 1 tab(s), Oral, q12hr, X 7 day(s), # 14 tab(s), Refills(s) 0, [id number] 179.3, cm, 03/13/24 10:37:00 EST, Height/Length Dosing, 114.7, kg, 03/13/24 10:37:00 EST, Weight Dosing fluticasone nasal, 2 spray(s), Nasal, Daily, 16 gram, Refill(s) 0, each nostril, [id number], 179.3, cm, 03/13/24 10:37:00 EST, Height/Length Dosing, 114.7, kg, 03/13/24 10:37:00 EST, Weight Dosing UA with Cult Rflx Orders: brompheniramine/dextro methorphan/PSE, 5 mL, Oral, QID, 120 mL, Refill(s) 0, [id number], 179.3, cm, 03/13/24 10:37:00 EST, Height/Length Dosing, 114.7, kg, 03/13/24 10:37:00 EST, Weight Dosing (more content not included)... Normal [facility] Comment on above: Result Comment: Elec tronically Signed By: Magda NAVARRO, Liz Balbuena\.br\Date and Time Signed: 03/13/24 14:37 EST CBC with Auto Differentialon 03-03-2024 Basophils (Bld) [#/Vol] 0.03 10*3/uL [facility] Basophils/100 WBC (Bld) 0 % 0 - 2 % [facility] Eosinophils (Bld) [#/Vol] 0.13 10*3/uL [facility] Eosinophils/100 WBC (Bld) 2 % 1 - 4 % [facility] Erythrocyte distribution width (RBC) [Ratio] 12.5 % 11.8 - 14.4 % [facility] Hematocrit (Bld) [Volume fraction] 43.0 % 40.7 - 50.3 % [facility] Hemoglobin (Bld) [Mass/Vol] 14.7 g/dL 13.0 - 17.0 g/dL [facility] Immature granulocytes (Bld) [#/Vol] 0.04 10*3/uL [facility] Immature granulocytes/100 WBC (Bld) 1 % High 0 [facility] Interpretation and review of laboratory results Abnormal [facility] Lymphocytes/100 WBC (Bld) 14 % Low 24 - 43 % [facility] Lymphocytes/100 WBC (Bld) 1.11 % [facility] MCH (RBC) [Entitic mass] 35.3 pg High 25.2 - 33.5 pg [facility] MCHC (RBC) [Mass/Vol] 34.2 g/dL 28.4 - 34.8 g/dL [facility] MCV (RBC) [Entitic vol] 103.1 fL High 82.6 - 102.9 fL [facility] Monocytes/100 WBC (Bld) 8 % 3 - 12 % [facility] Monocytes/100 WBC (Bld) 0.64 % [facility] Neutrophils/100 WBC (Bld) 75 % High 36 - 65 % [facility] Nucleated RBC/100 WBC (Bld) [Ratio] 0.0 % 0.0 per 100 WBC [facility] Platelet mean volume (Bld) [Entitic vol] 10.1 fL 8.1 - 13.5 fL [facility] Platelets (Bld) [#/Vol] 165 10*3/uL [facility] RBC (Bld) [#/Vol] 4.17 10*6/uL Low 4.21 - 5.7 7 m/uL [facility] RBC (Bld) [#/Vol] MACROCYTOSIS PRESENT [facility] Segmented neutrophils/100 WBC (Bld) 6.06 % [facility] WBC other (Bld) [#/Vol] 8.0 [facility] CBC with Diffon 03-03-2024 Abs. Basophil 0.03 k/uL Normal 0.00-0.20 [facility] Comment on above: Performed By: #### D EM, TROPI, CDP, MG, CP #### [facility] [address] [place] [address] Director Trading: Gregor Haas MD Abs.Imm.Granulocyte 0.04 k/uL Normal 0.00-0.30 [facility] Comment on above: Performed By: #### D EM, TROPI, CDP, MG, CP #### [facility] [address] [place] [address] Director Trading: Gregor Haas MD Abs.Neutrophil (Seg) 6.06 k/uL Normal 1.50-8.10 [facility] Comment on above: Performed By: #### D EM, TROPI, CDP, MG, CP #### [facility] [address] [place] [address] Director Trading: Gregor Haas MD Basophils/100 WBC (Bld) 0 % Normal 0-2 [facility] Comment on above: Performed By: #### D EM, TROPI, CDP, MG, CP #### [facility] [address] [employer] [facility] [place] [address] Director Trading: Gregor Haas MD Eosinophils (Bld) [#/Vol] 0.13 10*3/uL Normal 0.00-0.44 [facility] Comment on above: Performed By: #### D EM, TROPI, CDP, MG, CP #### [facility] [address] [place] [address] Director Trading: Gregor Haas MD Eosinophils/100 WBC (Bld) 2 % Normal 1-4 [facility] Comment on above: Performed By: #### D EM, TROPI, CDP, MG, CP #### [facility] Lab [address] [place] [address]. [place] [address] Director Trading: Gregor Haas MD Erythrocyte distribution width (RBC) [Ratio] 12.5 % Normal 11.8-14.4 [facility] Comment on above: Performed By: #### D EM, TROPI, CDP, MG, CP #### [facility] Lab [address] [place], [place] [address]ia [employer] [facility] [place] [address] Director Trading: Gregor Haas MD Hematocrit (Bld) [Volume fraction] 43.0 % Normal 40.7-50.3 [facility] Comment on above: Performed By: #### D EM, TROPI, CDP, MG, CP #### [facility] [employer] [facility] [place] [address] Director Trading: Gregor Haas MD Hemoglobin (Bld) [Mass/Vol] 14.7 g/dL Normal 13.0-17.0 [facility] Comment on above: Performed By: #### D EM, TROPI, CDP, MG, CP #### [facility] [place] [address] Director Trading: Gregor Haas MD Immature granulocytes/100 WBC (Bld) 1 % High 0 [facility] Comment on above: Performed By: #### D EM, TROPI, CDP, MG, CP #### [facility] [address] [place] [address]. [place] [address] Director Trading: Gregor Haas MD Lymphocytes (Bld) [#/Vol] 1.11 10*3/uL Normal 1.10-3.70 [facility] Comment on above: Performed By: #### D EM, TROPI, CDP, MG, CP #### [facility] [address] [place] [address]. [place] [address] Director Trading: Gregor Haas MD Lymphocytes/100 WBC (Bld) 14 % Low 24-43 [facility] Comment on above: Performed By: #### D EM, TROPI, CDP, MG, CP #### [facility] [address] [place] [address]. [place] [address] Director Trading: Gregor Haas MD MCH (RBC) [Entitic mass] 35.3 pg High 25.2-33.5 [facility] Comment on above: Performed By: #### D EM, TROPI, CDP, MG, CP #### [facility] [address] [place] [address]. [place] [address] Director Trading: Gregor Haas MD MCHC (RBC) [Mass/Vol] 34.2 g/dL Normal 28.4-34.8 [facility] Comment on above: Performed By: #### D EM, TROPI, CDP, MG, CP #### [facility] [address] [place] [address]. [place] [address] Director Trading: Gregor Haas MD MCV (RBC) [Entitic vol] 103.1 fL High 82.6-102.9 [facility] Comment on above: Performed By: #### D EM, TROPI, CDP, MG, CP #### [facility] [address] [place] [address]. [place] [address] Director Trading: Gregor Haas MD Monocytes (Bld) [#/Vol] 0.64 10*3/uL Normal 0.10-1.20 [facility] Comment on above: Performed By: #### D EM, TROPI, CDP, MG, CP #### [facility] [address] [place] [address]. [place] [address] Director Trading: Gregor Haas MD Monocytes/100 WBC (Bld) 8 % Normal 3-12 [facility] Comment on above: Performed By: #### D EM, TROPI, CDP, MG, CP #### [facility] [address] [place] [address]. [place] [address] Director Trading: Gregor Haas MD Neutrophil (Seg) 75 % High 36-65 [facility] Comment on above: Performed By: #### D EM, TROPI, CDP, MG, CP #### [facility] [address] [place] [address]. [place] [address] Director Trading: Gregor Haas MD NRBC Automated 0.0 per 100 WBC Normal 0.0 [facility] Comment on above: Performed By: #### D EM, TROPI, CDP, MG, CP #### [facility] [address] [place] [address] Director Trading: Gregor Haas MD Platelet mean volume (Bld) [Entitic vol] 10.1 fL Normal 8.1-13.5 [facility] Comment on above: Performed By: #### D EM, TROPI, CDP, MG, CP #### [facility] [address] [place] [address]. [place] [address] Director Trading: Gregor Haas MD Platelets (Bld) [#/Vol] 165 10*3/uL Normal 138-453 [facility] Comment on above: Performed By: #### D EM, TROPI, CDP, MG, CP #### [facility] [address] [place] [address]. [place] [address] Director Trading: Gregor Haas MD RBC (Bld) [#/Vol] 4.17 10*6/uL Low 4.21-5.77 [facility] Comment on above: Performed By: #### D EM, TROPI, CDP, MG, CP #### [facility] [address] [place] [address]. [place] [address] Director Trading: Gregor Haas MD RBC morphology finding Nom (Bld) MACROCYTOSIS PRESENT Normal [facility] Comment on above: Performed By: #### D EM, TROPI, CDP, MG, CP #### [facility] [address] [place] [address]. [place] [address] Director Trading: Gregor Haas MD WBC (Bld) [#/Vol] 8.0 10*3/uL Normal 3.5-11.3 [facility] Comment on above: Performed By: #### D EM, TROPI, CDP, MG, CP #### [facility] [address] [place] [address] Director Trading: Gregor Haas MD [facility] 03-03-2024 Albumin [Mass/Vol] 4.1 g/dL 3.5 - 5.2 g/dL [facility] Albumin/Globulin [Mass ratio] 1.4 {ratio} 1.0 - 2.5 [facility] ALP [Catalytic activity/Vol] 55 U/L 40 - 129 U/L [facility] ALT [Catalytic activity/Vol] 22 U/L 10 - 50 U/L [facility] Anion gap [Moles/Vol] 13 mmol/L 9 - 16 mmol/L [facility] AST [Catalytic activity/Vol] 24 U/L 10 - 50 U/L [facility] Bilirubin [Mass/Vol] 0.4 mg/dL 0.00 - 1.20 mg/dL [facility] Calcium [Mass/Vol] 9.2 mg/dL 8.8 - 10. 2 mg/dL [facility] Chloride [Moles/Vol] 103 mmol/L 98 - 10 7 mmol/L [facility] CO2 [Moles/Vol] 21 mmol/L 20 - 31 mmol/L [facility] Creatinine [Mass/Vol] 1.2 mg/dL 0.70 - 1.20 mg/dL [facility] Est, Glom Filt Rate 65 - PINF [facility] Comment on above: These results are not intended for use [...] following therapy that affects renal tubular secretion. Glucose [Mass/Vol] 153 mg/dL High 82 - 115 mg/dL [facility] Interpretation and review of laboratory results Abnormal [facility] Potassium [Moles/Vol] 4.6 mmol/L 3.7 - 5.3 mmol/L [facility] Protein [Mass/Vol] 6.9 g/dL 6.6 - 8.7 g/dL [facility] Sodium [Moles/Vol] 137 mmol/L 136 - 145 mmol/L [facility] Urea nitrogen [Mass/Vol] 24 mg/dL High 8 - 23 mg/dL [facility] CT HEAD WO CONTRASTon 2023 CT HEAD WO CONTRAST EXAMINATION: CT OF THE HEAD WITHOUT CONTRAST 03/03/2024 4:27 pm TECHNIQUE: CT of the head was performed without the administration of intravenous contrast. Automated exposure control, iterative reconstruction, and/or weight based adjustment of the mA/kV was utilized to reduce the radiation dose to as low as reasonably achievable. COMPARISON: None. HISTORY: ORDERING SYSTEM PROVIDED HISTORY: confusion FINDINGS: BRAIN/VENTRICLES: There is no acute intracranial hemorrhage, mass effect or midline shift. 6 mm hyperdensity within the left globus pallidus, either reflecting dystrophic calcification or possibly an underlying cavernoma. No abnormal extra-axial fluid collection. The woody-white differentiation is maintained without evidence of an acute infarct. There is no evidence of hydrocephalus. Mild generalized parenchymal volume loss. ORBITS: The visualized portion of the orbits demonstrate no acute abnormality. SINUSES: The visualized paranasal sinuses and mastoid air cells demonstrate no acute abnormality. SOFT TISSUES/SKULL: No acute abnormality of the visualized skull or soft tissues. IMPRESSION: 1. No acute intracranial abnormality. 2. 6 mm hyperdensity within the left globus pallidus, either reflecting dystrophic calcification or possibly an underlying cavernoma. Consider nonemergent MRI with and without contrast for further evaluation as an outpatient. Interpreted by: Domo Johnson DO Signed by: Domo Johnson DO 03/03/24 Final result Normal [facility] CT Head WO contraston 2023 1. No acute intracranial abnormality. 2. 6 mm hyperdensity within the left globus pallidus, either reflecting dystrophic calcification or possibly an underlying cavernoma. Consider nonemergent MRI with and without contrast for further evaluation as an outpatient. [facility] RIS CONSOLIDATED EXAMINATION: CT OF THE HEAD WITHOUT CONTRAST 03/03/2024 4:27 pm TECHNIQUE: CT of the head was performed without the administration of intravenous contrast. Automated exposure control, iterative reconstruction, and/or weight based adjustment of the mA/kV was utilized to reduce the radiation dose to as low as reasonably achievable. COMPARISON: None. HISTORY: ORDERING SYSTEM PROVIDED HISTORY: confusion FINDINGS: BRAIN/VENTRICLES: There is no acute intracranial hemorrhage, mass effect or midline shift. 6 mm hyperdensity within the left globus pallidus, either reflecting dystrophic calcification or possibly an underlying cavernoma. No abnormal extra-axial fluid collection. The woody-white differentiation is maintained without evidence of an acute infarct. There is no evidence of hydrocephalus. Mild generalized parenchymal volume loss. ORBITS: The visualized portion of the orbits demonstrate no acute abnormality. SINUSES: The visualized paranasal sinuses and mastoid air cells demonstrate no acute abnormality. SOFT TISSUES/SKULL: No acute abnormality of the visualized skull or soft tissues. [facility] RIS Domo Weiss, DO - 03/03/2024 EXAMINATION: CT OF THE HEAD WITHOUT CONTRAST 03/03/2024 4:27 pm TECHNIQUE: CT of the head was performed without the administration of intravenous contrast. Automated exposure control, iterative reconstruction, and/or weight based adjustment of the mA/kV was utilized to reduce the radiation dose to as low as reasonably achievable. COMPARISON: None. HISTORY: ORDERING SYSTEM PROVIDED HISTORY: confusion FINDINGS: BRAIN/VENTRICLES: There is no acute intracranial hemorrhage, mass effect or midline shift. 6 mm hyperdensity within the left globus pallidus, either reflecting dystrophic calcification or possibly an underlying cavernoma. No abnormal extra-axial fluid collection. The woody-white differentiation is maintained without evidence of an acute infarct. There is no evidence of hydrocephalus. Mild generalized parenchymal volume loss. ORBITS: The visualized portion of the orbits demonstrate no acute abnormality. SINUSES: The visualized paranasal sinuses and mastoid air cells demonstrate no acute abnormality. SOFT TISSUES/SKULL: No acute abnormality of the visualized skull or soft tissues. IMPRESSION: 1. No acute intracranial abnormality. 2. 6 mm hyperdensity within the left globus pallidus, either reflecting dystrophic calcification or possibly an underlying cavernoma. Consider nonemergent MRI with and without contrast for further evaluation as an outpatient. [facility] Radiology Study observation (narrative) [facility] CT Head WO contrastOrdered B y: Domo Johnson on 03-03-2024 [facility] Work Phone: Comp Metabolic Profon 2023 Albumin [Mass/Vol] 4.1 g/dL Normal 3.5-5.2 [facility] Comment on above: Performed By: #### D EM, TROPI, CDP, MG, CP #### [facility] Lab [address] [place] [address] Director Trading: Gregor Haas MD Albumin/Glob Ratio 1.4 Normal 1.0-2.5 [facility] Comment on above: Performed By: #### D EM, TROPI, CDP, MG, CP #### [facility] Lab [address] [place] [address] Director Trading: Gregor Haas MD Alkaline Phos 55 U/L Normal 40-129 [facility] Comment on above: Performed By: #### D EM, TROPI, CDP, MG, CP #### [facility] Lab [address] [place] [address] Director Trading: Gregor Haas MD ALT [Catalytic activity/Vol] 22 U/L Normal 10-50 [facility] Comment on above: Performed By: #### D EM, TROPI, CDP, MG, CP #### [facility] [address] [employer] [facility] [place] [address] Director Trading: Gregor Haas MD Anion gap [Moles/Vol] 13 mmol/L Normal 9-16 [facility] Comment on above: Performed By: #### D EM, TROPI, CDP, MG, CP #### [facility] [address] [employer] [facility] [place] [address] Director Trading: Gregor Haas MD AST [Catalytic activity/Vol] 24 U/L Normal 10-50 [facility] Comment on above: Performed By: #### D EM, TROPI, CDP, MG, CP #### [facility] Lab [address] [place] [address] Director Trading: Gregor Haas MD Bilirubin [Mass/Vol] 0.4 mg/dL Normal 0.00-1.20 [facility] Comment on above: Performed By: #### D EM, TROPI, CDP, MG, CP #### [facility] Lab [address] [place] [address] Director Trading: Gregor Haas MD Calcium [Mass/Vol] 9.2 mg/dL Normal 8.8-10.2 [facility] Comment on above: Performed By: #### D EM, TROPI, CDP, MG, CP #### [facility] Lab [address] [place] [address] Director Trading: Gregor Haas MD Chloride [Moles/Vol] 103 mmol/L Normal 98-107 [facility] Comment on above: Performed By: #### D EM, TROPI, CDP, MG, CP #### [facility] Lab [address] [place] [address] Director Trading: Gregor Haas MD CO2 [Moles/Vol] 21 mmol/L Normal 20-31 [facility] Comment on above: Performed By: #### D EM, TROPI, CDP, MG, CP #### [facility] Lab [address] [place] [address] Director Trading: Gregor Haas MD Creatinine [Mass/Vol] 1.2 mg/dL Normal 0.70-1.20 [facility] Comment on above: Performed By: #### D EM, TROPI, CDP, MG, CP #### [facility] Lab [address] [place] [address] Director Trading: Gregor Haas MD GFR/1.73 sq M.predicted among non-blacks MDRD (S/P/Bld) [Vol rate/Area] 65 mL/min/{1.73_m2} Normal >60 [facility] Comment on above: Result Comment: These results are not intended for [...] following therapy that affects renal tubular secretion. Performed By: #### D EM, TROPI, CDP, MG, CP #### [facility] Lab [address] [place] [address] Director Trading: Gregor Haas MD Glucose [Mass/Vol] 153 mg/dL High 82-115 [facility] Comment on above: Performed By: #### D EM, TROPI, CDP, MG, CP #### [facility] Lab [address] [place] [address] Director Trading: Gregor Haas MD Potassium [Moles/Vol] 4.6 mmol/L Normal 3.7-5.3 [facility] Comment on above: Performed By: #### D EM, TROPI, CDP, MG, CP #### [facility] [address] [place] [address] Director Trading: Gregor Haas MD Protein [Mass/Vol] 6.9 g/dL Normal 6.6-8.7 [facility] Comment on above: Performed By: #### D EM, TROPI, CDP, MG, CP #### [facility] Lab [address] [place] [address] Director Trading: Gregor Haas MD Sodium [Moles/Vol] 137 mmol/L Normal 136-145 [facility] Comment on above: Performed By: #### D EM, TROPI, CDP, MG, CP #### [facility] Lab [address] [place] [address] Director Trading: Gregor Haas MD Urea nitrogen [Mass/Vol] 24 mg/dL High 8-23 [facility] Comment on above: Performed By: #### D EM, TROPI, CDP, MG, CP #### [facility] Lab [address] [place], [place] [phone] Director Trading: Gregor Haas MD D-Dimer Teston 03-03-2024 D-Dimer Test 0.47 ug/mL FEU Normal 0.00-0.59 [facility] Comment on above: Result Comment: When combined with a low clinical probability, a D dimer value of <0.50 ug/mL FEU is considered negative for DVT and PE (negative predictive value of 98%, sensitivity of 97%). If this test is not being used to help rule out DVT and PE, then the following reference range should be utilized: 0.00 - 0.59 ug/mL FEU. The D-Dimer assay is intended for use as an aid in the diagnosis of venous thromboembolism (DVT and PE) and the results should be interpreted in conjunction with the patient's medical history, clinical presentation, and other findings. Elevated levels of D-dimer activity can be seen in any state of coagulation activation and is not recommended in patients with therapeutic dose anticoagulant therapy for >24 hours, fibrinolytic therapy within the previous 7 days, trauma or surgery within the previous 4 weeks, disseminated malignancies, aortic aneurysm, sepsis, severe infections, pneumonia, severe skin infections, liver cirrhosis, advanced age, coronary disease, diabetes, and . A very low percentage of patients with DVT may yield D-dimer results below the cutoff of 0.5 ug/mL FEU. This is known to be more prevalent in patients with distal DVT. Performed By: #### D EM, TROPI, CDP, MG, CP #### [facility] Lab [address] [place], [place] [id number] Director Trading: Gregor Haas MD D-Dimer, Quantitativeon 02-13 Fibrin D-dimer FEU (PPP) [Mass/Vol] 0.47 [facility] Comment on above: When combined with a low clinical probability, a D dimer value of <0.50 ug/mL FEU is considered negative for DVT and PE (negative predictive value of 98%, sensitivity of 97%). If this test is not being used to help rule out DVT and PE, then the following reference range should be utilized: 0.00 - 0.59 ug/mL FEU. The D-Dimer assay is intended for use as an aid in the diagnosis of venous thromboembolism (DVT and PE) and the results should be interpreted in conjunction with the patient's medical history, clinical presentation, and other findings. Elevated levels of D-dimer activity can be seen in any state of coagulation activation and is not recommended in patients with therapeutic dose anticoagulant therapy for >24 hours, fibrinolytic therapy within the previous 7 days, trauma or surgery within the previous 4 weeks, disseminated malignancies, aortic aneurysm, sepsis, severe infections, pneumonia, severe skin infections, liver cirrhosis, advanced age, coronary disease, diabetes, and . A very low percentage of patients with DVT may yield D-dimer results below the cutoff of 0.5 ug/mL FEU. This is known to be more prevalent in patients with distal DVT. [facility] Lactate, Sepsison 03-03-2024 Lactate (BldV) [Moles/Vol] 1.4 mmol/L 0.5 - 1.9 mmol/L [facility] Lactic Acid, Sepsis 1.4 mmol/L Normal 0.5-1.9 [facility] Comment on above: Performed By: #### T RICHARD HATCH #### [facility] Lab [address] [place] [address] Director Trading: Gregor Haas MD Lactic Acidon 03-03-2024 Interpretation and review of laboratory results Abnormal [facility] Lactate (BldV) [Moles/Vol] 2.6 mmol/L High 0.5 - 2.2 mmol/L [facility] Lactate [Moles/Vol] 2.6 mmol/L High 0.5-2.2 [facility] Comment on above: Performed By: #### L ACTIC #### [facility] Lab [address] [place] [address] Director Trading: Gregor Haas MD Magnesiumon 03-03-2024 Magnesium [Mass/Vol] 1.9 mg/dL 1.6 - 2 .4 mg/dL [facility] Magnesium [Mass/Vol] 1.9 mg/dL Normal 1.6-2.4 [facility] Comment on above: Performed By: #### D EM, TROPI, CDP, MG, CP #### [facility] Lab [address] [place] [address] Director Trading: Gregor Haas MD No Panel Informationon 03-03 [facility] Resp Viral Panelon Adenovirus Not detected Normal [facility] Comment on above: Performed By: #### R WHEAT GROWER ####[facility] [id number] [place] [address] Lab Director: Willian Vinson [address] [address] Lab Director: MD Rodger Johnson.parapertussis Not detected Normal [facility] Comment on above: Performed By: #### R WHEAT GROWER ####[facility] [id number] [place] [address] Lab Director: Willian Vinson [address] [address] Lab Director: MD Paola Johnsontella pertussis Not detected Normal [facility] Comment on above: Performed By: #### R WHEAT GROWER ####[facility] [id number] [place] [phone] Director: Willian Vinson [address] [address] Lab Director: Dilip Luke MD Chlamyd.pneumoniae Not detected Normal [facility] Comment on above: Performed By: #### R WHEAT GROWER ####[facility] [id number] [place] [phone] Director: Willian Vinson [address] [address] Lab Director: Dilip Luke MD Coronavirus 229E Not detected Normal [facility] Comment on above: Performed By: #### R WHEAT GROWER ####[facility] [id number] [place] [phone] Director: Willian Vinson [address] [address] Lab Director: Dilip Luke MD Coronavirus HKU1 Not detected Normal [facility] Comment on above: Performed By: #### R WHEAT GROWER ####[facility] [id number] [place] [phone] Director: Willian Vinson [address] [address] Lab Director: Dilip Luke MD Coronavirus NL63 Not detected Normal [facility] Comment on above: Performed By: #### R WHEAT GROWER ####[facility] [id number] [place] [phone] Director: Willian Vinson [address] [address] Lab Director: Dilip Luke MD Coronavirus OC43 Not detected Normal [facility] Comment on above: Performed By: #### R WHEAT GROWER ####[facility] [id number] [place] [phone] Director: Willian Vinson [address] [address] Lab Director: Dilip Luke MD Human Metapneumo Not detected Normal [facility] Comment on above: Performed By: #### R WHEAT GROWER ####[facility] [id number] [place] [phone] Director: Willian Vinson [address] [address] Lab Director: Dilip Luke MD Influenza A Not detected Normal [facility] Comment on above: Performed By: #### R WHEAT GROWER ####[facility] [id number] [place] [address] Lab Director: Willian Vinson [address] [address] Lab Director: Dilip Luke MD Influenza B Not detected Normal [facility] Comment on above: Performed By: #### R WHEAT GROWER ####[facility] [address] [place] [address] Lab Director: Willian Vinson [address] [address] Lab Director: Dilip Luke MD Mycoplas.pneumoniae Not detected Normal [facility] Comment on above: Result Comment: Perf ormed by multiplexed nucleic acid assay. Performed By: #### R WHEAT GROWER ####[facility] [address] [place] [address] Lab Director: Willian Vinson [address] [address] Lab Director: Dilip Luke MD Parainfluenza 1 Not detected Normal [facility] Comment on above: Performed By: #### R WHEAT GROWER ####[facility] [id number] [place] [phone] Director: Ayde Vinson[address] [address] Lab Director: Dilip Luke MD Parainfluenza 2 Not detected Normal [facility] Comment on above: Performed By: #### R WHEAT GROWER ####[facility] [id number] [place] [address] Lab Director: Gregor Haas [facility] [address] Lab Director: Dilip Luke MD Parainfluenza 3 Not detected Normal [facility] Comment on above: Performed By: #### R WHEAT GROWER ####[facility] [address] [place] [address] Lab Director: Willian Vinson [address] [address] Lab Director: Dilip Luke MD Parainfluenza 4 Not detected Normal [facility] Comment on above: Performed By: #### R WHEAT GROWER ####[facility] [address] [place] [address] Lab Director: Willian Vinson [address] [address] Lab Director: Dilip Luke MD Resp Syncytial Virus Not detected Normal [facility] Comment on above: Performed By: #### R WHEAT GROWER ####[facility] [id number] [place] [phone] Director: Gregor Haas [facility] [address] [phone] Director: Dilip Luke MD Rhino/Enterovirus Not detected Normal [facility] Comment on above: Performed By: #### R WHEAT GROWER ####[facility] [id number] [place] [address] Lab Director: Gregor Haas [facility] [address] Lab Director: Dilip Luke MD SARS-CoV-2 (COVID-19) RNA MAYNOR+probe Ql (Unsp spec) Not detected Normal [facility] Comment on above: Performed By: #### R WHEAT GROWER ####[facility] [id number] [place], [place] [phone] Director: Gregor Haas [address] [phone] Director: Dilip Luke MD Source: .NASOPHARYNGEAL SWAB Normal [facility] Comment on above: Performed By: #### R WHEAT GROWER ####[facility] [address] [place] [address] Lab Director: Gregor Haas [facility] [phone] Director: Dilip Luke MD Respiratory Panel, Molecular , with COVID-19 (Restricted: peds pts or suitable admitted adults)on 03-03-2024 Adenovirus DNA MAYNOR+non-probe Ql (Nph) Not detected Not Detected [facility] B. parapertussis [id number] DNA MAYNOR+non-probe Ql (Nph) Not detected Not Detected [facility] B. pertussis DNA MAYNOR+probe Ql (Unsp spec) Not detected Not Detected [facility] C. pneumoniae DNA MAYNOR+non-probe Ql (Nph) Not detected Not Detected [facility] FLUAV RNA MAYNOR+non-probe Ql (Nph) Not detected Not Detected [facility] FLUBV RNA MAYNOR+non-probe Ql (Nph) Not detected Not Detected [facility] HCoV 229E RNA MAYNOR+non-probe Ql (Nph) Not detected Not Detected [facility] HCoV HKU1 RNA MAYNOR+non-probe Ql (Nph) Not detected Not Detected [facility] HCoV NL63 RNA MAYNOR+non-probe Ql (Nph) Not detected Not Detected [facility] HCoV OC43 RNA MAYNOR+non-probe Ql (Nph) Not detected Not Detected [facility] hMPV RNA MAYNOR+non-probe Ql (Nph) Not detected Not Detected [facility] M. pneumoniae DNA MAYNOR+non-probe Ql (Nph) Not detected Not Detected [facility] Comment on above: Performed by Jam[employer] nucleic acid assay. Parainfluenza virus 1 RNA MAYNOR+non-probe Ql (Nph) Not detected Not Detected [facility] Parainfluenza virus 2 RNA MAYNOR+non-probe Ql (Nph) Not detected Not Detected [facility] Parainfluenza virus 3 RNA MAYNOR+non-probe Ql (Nph) Not detected Not Detected [facility] Parainfluenza virus 4 RNA MAYNOR+non-probe Ql (Nph) Not detected Not Detected [facility] Rhinovirus+Enterovirus RNA MAYNOR+non-probe Ql (Nph) Not detected Not Detected [facility] RSV RNA MAYNOR+non-probe Ql (Nph) Not detected Not Detected [facility] SARS-CoV-2 (COVID-19) RNA MAYNOR+non-probe Ql (Nph) Not detected Not Detected [facility] Specimen Description .NASOPHARYNGEAL SWAB [facility] Troponinon 03-03-2024 Troponin I.cardiac High sensitivity method [Mass/Vol] 10 ng/L 0 - 22 ng/L [facility] Comment on above: High Sensitivity Tro ponin values cannot be compared with other Troponin methodologies. [facility] Troponin, High Sens 10 ng/L Normal 0-22 [facility] Comment on above: Result Comment: High Sensitivity Troponin values cannot be compared with other Troponin methodologies. Performed By: #### T ROPI, LACDS #### [facility] Lab [address] [place] [address] Director Trading: Gregor Haas MD Troponin I.cardiac High sensitivity method [Mass/Vol] 13 ng/L 0 - 22 ng/L [facility] Comment on above: High Sensitivity Tro ponin values cannot be compared with other Troponin methodologies. Troponin, High Sens 13 ng/L Normal 0-22 [facility] Comment on above: Result Comment: High Sensitivity Troponin values cannot be compared with other Troponin methodologies. Performed By: #### D EM, TROPI, CDP, MG, CP #### [facility] Lab [address] [place] [address] Director Trading: Gregor Haas MD XR CHEST 1 VIEWon 03-03-2024 XR CHEST 1 VIEW EXAMINATION: ONE XRAY VIEW OF THE CHEST 03/03/2024 1:23 pm COMPARISON: None. HISTORY: ORDERING SYSTEM PROVIDED HISTORY: chest pain TECHNOLOGIST PROVIDED HISTORY: chest pain Reason for Exam: Chest pain FINDINGS: Heart / Mediastinum: Heart size is normal. Normal pulmonary vasculature. Mediastinal contours are unremarkable. Lungs: No focal consolidation. Pleura: No pneumothorax or pleural effusion. Bones: No acute osseous abnormality. IMPRESSION: No radiographic evidence of acute cardiopulmonary abnormality. Interpreted by: Moshe Pérez MD Signed by: Moshe Pérez MD 03/03/24 Final result Normal [facility] XR Chest Single viewon 03-03 No radiographic evidence of acute cardiopulmonary abnormality. [facility] RIS CONSOLIDATED EXAMINATION: ONE XRAY VIEW OF THE CHEST 03/03/2024 1:23 pm COMPARISON: None. HISTORY: ORDERING SYSTEM PROVIDED HISTORY: chest pain TECHNOLOGIST PROVIDED HISTORY: chest pain Reason for Exam: Chest pain FINDINGS: Heart / Mediastinum: Heart size is normal. Normal pulmonary vasculature. Mediastinal contours are unremarkable. Lungs: No focal consolidation. Pleura: No pneumothorax or pleural effusion. Bones: No acute osseous abnormality. [facility] RIS CONSOLIDATED Moshe Pérez MD - 03/03/2024 EXAMINATION: ONE XRAY VIEW OF THE CHEST 03/03/2024 1:23 pm COMPARISON: None. HISTORY: ORDERING SYSTEM PROVIDED HISTORY: chest pain TECHNOLOGIST PROVIDED HISTORY: chest pain Reason for Exam: Chest pain FINDINGS: Heart / Mediastinum: Heart size is normal. Normal pulmonary vasculature. Mediastinal contours are unremarkable. Lungs: No focal consolidation. Pleura: No pneumothorax or pleural effusion. Bones: No acute osseous abnormality. IMPRESSION: No radiographic evidence of acute cardiopulmonary abnormality. [facility] Radiology Study observation (narrative) [facility] XR Chest Single viewOrdered By: Moshe Pérez on 03-03-2024 [facility] Work Phone: Family Medicine Office/Clini c Noteon 02-28-2024 Family Medicine Office/Clinic Note Family Medicine Office/Clinic Note Chief Complaint Sick Visit HPI Staff Pt presents today for acute sick visit. Started having runny nose & coughing Wednesday. Increased weakness started Wednesday. Denies sore throat. Drainage that runs from nose to throat. Occasional phlegm with coughing. Denies exposure to Covid. NEG Covid test Wednesday. Denies N&V. Denies fever. Did have a weird dream this morning, so he thinks he may have had a fever while sleeping. History of Present Illness pt presents today for URI symptoms Review of Systems PHQ Score Initial Depression Screen Score: 0 SCORE Physical Exam Vitals & Measurements T: 36.5 ???C(Tympanic) HR: 80(Peripheral) RR: 18 BP: 138/80 SpO2: 96% HT: 71 in HT: 179.3 cm WT: 115.9 kg WT: 255.515 lb BMI: 36.05 General: alert, no acute distress ENMT: oral mucosa moist, no pharyngeal erythema or exudate Cardiovascular: regular rate and rhythm, normal peripheral perfusion Respiratory: Lungs CTA, respirations non labored Extremities: no deformity, no trauma Neurological: oriented x 4, LOC appropriate for age, CN II-XII intact, motor strength equal & normal bilaterally, speech normal Assessment/Plan 1. Cough (R05.9: Cough, unspecified) pt presents today with cough and congestion. covid was negative. chest x ray tbh. amoxicllin 875 ordered. 2. BMI 36.0-36.9,adult (Z68.36: Body mass index [BMI] 36.0-36.9, adult) BMI education given 3. Obesity (BMI 30-39.9) (E66.9: Obesity, unspecified) see above 4. Non-smoker (Z78.9: Other specified health status) continue not smoking Follow-up No qualifying data available Problem List/Past Medical History Ongoing Annual physical exam Atherosclerotic heart disease of [place] coronary artery without angina pectoris BMI 36.0-36.9,adult Cough Disorder of prostate Dysrhythmia HTN (hypertension) Hyperlipidemia No transfusions per jain beliefs Obesity (BMI 30-39.9) Pure hypercholesterolemia Shortness of breath Type 2 diabetes mellitus without complication Historical No qualifying data Procedure/Surgical History Stent (2022), Tonsillectomy, Umbilical hernia. Medications amiodarone 100 mg Tab, 200 mg= 2 tab(s), Oral, Daily amoxicillin 875 mg Tab, 875 mg= 1 tab(s), Oral, BID atorvastatin 80 mg Tab, 80 mg= 1 tab(s), Oral, Daily docusate sodium 250 mg oral capsule, 250 mg= 1 cap(s), Oral, BID, PRN ezetimibe 10 mg Tab Handicap Placard, See Instructions metformin 500 mg Tab, 500 mg= 1 tab(s), Oral, Daily, 3 refills metoprolol 25 mg ER Tab, 25 mg= 1 tab(s), Oral, BID NitroStat 0.4 mg Tab Pantoprazole [address] Tab, 40 mg= 1 tab(s), Oral, Daily ranolazine 1000 mg oral granule, extended release, 1000 mg, Oral, BID Allergies Asendin (Tremor) Bactrim (Rash) Brilinta (Shortness of breath) Garamycin Ophthalmic (Red eye) ciprofloxacin (Headache) Social History Alcohol - Denies Alcohol Use, 08/31/2022 Substance Abuse - Denies Substance Abuse, 08/31/2022 Tobacco - Denies Tobacco Use, 08/31/2022 Never (less than 100 in lifetime), Former smoker, quit more than 30 days ago Tobacco Use:. Never Smokeless Tobacco Use:. Cigarettes, Household tobacco concerns: No. Yes, 02/21/2024 Family History Cancer: Mother. Diabetes mellitus type 2: Mother. Heart failure: Mother. Immunizations Vaccine Date Status SARS-CoV-2 (COVID-19) [id number] 12/04/2021 Recorded SARSCoV2 mRNA(heqsjwhps-rpft-wg cros) vac 06/17/2021 Recorded SARS-CoV-2 (COVID-19) mRNA BNT-162b2 vax 12/13/2020 Recorded SARS-CoV-2 (COVID-19) mRNA BNT-162b2 vax 05/17/2020 Recorded SARS-CoV-2 (COVID-19) mRNA [id number] vax 04/26/[address] [facility] Comment on above: Result Comment: Elec tronically Signed By: Magda NAVARRO, Liz Balbuena\.br\Date and Time Signed: 02/28/24 12:09 EST CBC with Auto Differentialon 09-16-2023 Basophils (Bld) [#/Vol] 0.04 10*3/uL [facility] Basophils/100 WBC (Bld) 1 % 0 - 2 % [facility] Eosinophils (Bld) [#/Vol] 0.17 10*3/uL [facility] Eosinophils/100 WBC (Bld) 2 % 1 - 4 % [facility] Erythrocyte distribution width (RBC) [Ratio] 12.3 % 11.8 - 14.4 % [facility] Hematocrit (Bld) [Volume fraction] 43.1 % 40.7 - 50.3 % [facility] Hemoglobin (Bld) [Mass/Vol] 14.5 g/dL 13.0 - 17.0 g/dL [facility] Immature granulocytes (Bld) [#/Vol] [facility] Immature granulocytes/100 WBC (Bld) 0 % 0 [facility] Interpretation and review of laboratory results Abnormal [facility] Lymphocytes/100 WBC (Bld) 16 % Low 24 - 43 % [facility] Lymphocytes/100 WBC (Bld) 1.26 % [facility] MCH (RBC) [Entitic mass] 35.0 pg High 25.2 - 33.5 pg [facility] MCHC (RBC) [Mass/Vol] 33.6 g/dL 28.4 - 34.8 g/dL [facility] MCV (RBC) [Entitic vol] 104.1 fL High 82.6 - 102.9 fL [facility] Monocytes/100 WBC (Bld) 9 % 3 - 12 % [facility] Monocytes/100 WBC (Bld) 0.74 % [facility] Neutrophils/100 WBC (Bld) 72 % High 36 - 65 % [facility] Nucleated RBC/100 WBC (Bld) [Ratio] 0.0 % 0.0 per 100 WBC [facility] Platelet mean volume (Bld) [Entitic vol] 10.8 fL 8.1 - 13.5 fL [facility] Platelets (Bld) [#/Vol] 149 10*3/uL [facility] RBC (Bld) [#/Vol] 4.14 10*6/uL Low 4.21 - 5.7 7 m/uL [facility] Segmented neutrophils/100 WBC (Bld) 5.84 % [facility] WBC other (Bld) [#/Vol] 8.1 [facility] CKon 09-16-2023 CK [Catalytic activity/Vol] 64 U/L 39 - 308 U/L [facility] Comprehensive Metabolic Pane david 09-16-2023 Albumin [Mass/Vol] 4.0 g/dL 3.5 - 5.2 g/dL [facility] Albumin/Globulin [Mass ratio] 1.5 {ratio} 1.0 - 2.5 [facility] ALP [Catalytic activity/Vol] 47 U/L 40 - 129 U/L [facility] ALT [Catalytic activity/Vol] 16 U/L 5 - 41 U/L [facility] Anion gap [Moles/Vol] 8 mmol/L Low 9 - 17 mmol/L [facility] AST [Catalytic activity/Vol] 16 U/L NINF - 40 U/L [facility] Bilirubin [Mass/Vol] 0.7 mg/dL 0.3 - 1 .2 mg/dL [facility] Calcium [Mass/Vol] 8.9 mg/dL 8.6 - 10. 4 mg/dL [facility] Chloride [Moles/Vol] 104 mmol/L 98 - 10 7 mmol/L [facility] CO2 [Moles/Vol] 26 mmol/L 20 - 31 mmol/L [facility] Creatinine [Mass/Vol] 1.5 mg/dL High 0.7 - 1.2 mg/dL [facility] Sharon Urena Rate 49 Low - PINF [facility] Comment on above: These results are not intended for use [...] following therapy that affects renal tubular secretion. Glucose [Mass/Vol] 151 mg/dL High 70 - 99 mg/dL [facility] Interpretation and review of laboratory results Abnormal [facility] Potassium [Moles/Vol] 5.1 mmol/L 3.7 - 5.3 mmol/L [facility] Protein [Mass/Vol] 6.6 g/dL 6.4 - 8.3 g/dL [facility] Sodium [Moles/Vol] 138 mmol/L 135 - 144 mmol/L [facility] Urea nitrogen [Mass/Vol] 26 mg/dL High 8 - 23 mg/dL [facility] Urea nitrogen/Creatinine [Mass ratio] 17 mg/mg 9 - 20 [facility] Lipid Panelon 09-16-2023 Cholesterol [Mass/Vol] 144 mg/dL 0 - 1 99 mg/dL [facility] Comment on above: Cholesterol Guidelines: <200 Desirable 200-240 Borderline >240 Undesirable Cholesterol in HDL [Mass/Vol] 65 mg/dL 40 - PINF mg/dL [facility] Comment on above: HDL Guidelines: <40 Undesirable 40-59 Borderline >59 Desirable Cholesterol in LDL [Mass/Vol] 56 mg/dL 0 - 100 mg/dL [facility] Comment on above: LDL Guidelines: <100 Desirable 100-129 Near to/above Desirable 130-159 Borderline >159 Undesirable Direct (measured) LDL and calculated LDL are not interchangeable tests. Cholesterol in VLDL [Mass/Vol] 23 mg/dL [facility] Cholesterol.total/Chol esterol in HDL [Mass ratio] 2.0 {ratio} [facility] Triglyceride [Mass/Vol] 117 mg/dL NINF - 150 mg/dL [facility] Comment on above: Triglyceride Guidelines: <150 Desirable 150-199 Borderline 200-499 High >499 Very high Based on AHA Guidelines for fasting triglyceride, December 2011. [facility] No Panel Informationon 09-15 [facility] [employer] [facility] T3, Freeon 09-16-2023 Free T3 [Mass/Vol] 2.50 pg/mL 2.00 - 4. 40 pg/mL [facility] T4, Freeon 09-16-2023 Free T4 [Mass/Vol] 1.2 ng/dL 0.92 - 1. 68 ng/dL [facility] TSHon 09-16-2023 TSH Qn 1.35 m[IU]/L [facility] [place] 07-09-2022 ALT [Catalytic activity/Vol] 22 U/L 5 - 41 U/L [facility] Isreal 07-09-2022 AST [Catalytic activity/Vol] 20 U/L NINF - 40 U/L [facility] CKon 07-09-2022 CK [Catalytic activity/Vol] 80 U/L 39 - 308 U/L [facility] Lipid Panelon 07-09-2022 Cholesterol [Mass/Vol] 155 mg/dL NINF - 200 mg/dL [facility] Comment on above: Cholesterol Guidelines: <200 Desirable 200-240 Borderline >240 Undesirable Cholesterol in HDL [Mass/Vol] 45 mg/dL 40 - PINF mg/dL [facility] Comment on above: HDL Guidelines: <40 Undesirable 40-59 Borderline >59 Desirable Cholesterol in LDL [Mass/Vol] 84 mg/dL 0 - 130 mg/dL [facility] Comment on above: LDL Guidelines: <100 Desirable 100-129 Near to/above Desirable 130-159 Borderline >159 Undesirable Direct (measured) LDL and calculated LDL are not interchangeable tests. Cholesterol.total/Chol esterol in HDL [Mass ratio] 3.4 {ratio} NINF - 5 [facility] Triglyceride [Mass/Vol] 131 mg/dL NINF - 150 mg/dL [facility] Comment on above: Triglyceride Guidelines: <150 Desirable 150-199 Borderline 200-499 High >499 Very high Based on AHA Guidelines for fasting triglyceride, December 2011. [facility] No Panel Informationon 07-09 [facility] Basic Metabolic Panelon 04-15 Anion gap [Moles/Vol] 14 mmol/L 9 - 17 mmol/L [facility] Calcium [Mass/Vol] 9.0 mg/dL 8.6 - 10. 4 mg/dL [facility] Chloride [Moles/Vol] 104 mmol/L 98 - 10 7 mmol/L [facility] CO2 [Moles/Vol] 20 mmol/L 20 - 31 mmol/L [facility] Creatinine [Mass/Vol] 1.32 mg/dL High 0.70 - 1.20 mg/dL [facility] [employer] GFR/1.73 sq M.predicted MDRD (S/P/Bld) [Vol rate/Area] 58 mL/min/{1.73_m2} Low - PINF [facility] Comment on above: These results are not intended for use [...] following therapy that affects renal tubular secretion. Glucose [Mass/Vol] 265 mg/dL High 70 - 99 mg/dL [facility] Interpretation and review of laboratory results Abnormal [facility] Potassium [Moles/Vol] 4.3 mmol/L 3.7 - 5.3 mmol/L [facility] Sodium [Moles/Vol] 138 mmol/L 135 - 144 mmol/L [facility] Urea nitrogen [Mass/Vol] 22 mg/dL 8 - 23 mg/dL [facility] Urea nitrogen/Creatinine (Bld) [Mass ratio] 17 9 - 20 [facility] CBCon 05-01-2022 Hematocrit (Bld) [Volume fraction] 44.8 % 40.7 - 50.3 % [facility] Hemoglobin (Bld) [Mass/Vol] 14.6 g/dL 13.0 - 17.0 g/dL [facility] MCH (RBC) [Entitic mass] 32.4 pg 25.2 - 33.5 pg [facility] MCHC (RBC) [Mass/Vol] 32.6 g/dL 28.4 - 34.8 g/dL [facility] MCV (RBC) [Entitic vol] 99.6 fL 82.6 - 102.9 fL [facility] NRBC Automated 0.0 0.0 per 100 WBC [facility] Platelet distribution width (Bld) [Ratio] 13.0 % 11.8 - 14.4 % [facility] Platelet mean volume (Bld) [Entitic vol] 10.9 fL 8.1 - 13.5 fL [facility] Platelets (Bld) [#/Vol] 175 10*3/uL [facility] RBC (Bld) [#/Vol] 4.50 10*6/uL 4.21 - 5.7 7 m/uL [facility] WBC (Bld) [#/Vol] 9.5 10*3/uL [facility] ECHOCARDIO M/2D COMPLETEon 0 11-26-2021 ECHOCARDIO M/2D COMPLETE Patient: MARIELA CORTEZ Exam Date: 11/26/2021 : 1950 Gender:M Ordering : DR NICKI LIN M.D. Admission #: [id number] Family : DR SARA AVERY . Order #: [id number] CLICK HERE TO VIEW EXAM ECHOCARDIOGRAM REPORT PROCEDURE: CARDIO PULMONARY ECHOCARDIO M/2D COMP INDICATIONS: SOB, Cas recorder COMPARISON: None. DESCRIPTION: COMPLETE ECHOCARDIOGRAM Real-time transthoracic echocardiography with 2D, M-mode, spectral and color flow Doppler performed. QUALITY: Technical quality was adequate. NSR w/ PACs Loop recorder in PLAX / PSAX position. 71 251# 149/77 LEFT VENTRICLE: Normal chamber size. Normal left ventricular wall thickness. Global left ventricular systolic function is normal. Visual estimation of left ventricular ejection fraction is 60-65%. No regional wall motion abnormality. LV EF: DIASTOLIC: Diastolic function is indeterminate. ATRIAL SEPTUM: LEFT ATRIUM: Moderate dilatation. RIGHT ATRIUM: Mild dilatation. RIGHT VENTRICLE: Normal chamber size. Normal right ventricular systolic function. TRICUSPID VALVE: Normal mobility and thickness. No stenosis with trivial regurgitation. No evidence of pulmonary hypertension. RVSP is 30 mmHg MITRAL VALVE: Normal mobility and thickness. No evidence of mitral valve stenosis. Trivial mitral regurgitation. AORTIC VALVE: Normal trileaflet appearance. No evidence of aortic valve stenosis. Trivial aortic regurgitation. AORTIC ROOT: Aortic sinuses are normal in size for BSA. Ascending aorta is at upper normal limits in size. PULMONIC VALVE: Normal thickness and mobility. No stenosis. Trivial regurgitation. PERICARDIUM: No evidence of pericardial effusion. IVC: Collapses with inspirations. IVC is normal in size. PLEURA: CONCLUSION: 1. Left ventricular systolic function is normal. LVEF is 60 to 65%. 2. Normal right ventricular systolic function. 3. No significant valvular dysfunction. 4. Normal right-sided pressures. 5. Moderate left atrial dilatation. 6. No pericardial effusion. Adult Echocardiography Procedure Report Left Ventricle LVEDD (3.7 - 5.6 cm): 4.99 cm LVESD (2.2 - 4.0 cm): 3.36 cm LVPW thickness (0.5 - 1.0 cm): 1.01 cm Left Ventricular Ejection Fraction: 60-65% Left Atrium Mitral Valve Right Ventricle Aorta Aortic Valve Peak Velocity (Antegrade Flow): 1.50 m/s Tricuspid Valve Peak Velocity (Regurgitant Flow): 0.52 m/s Pulmonic Valve Right Atrium Dictated by: Dinesh Gillette M.D. on 11/28/2021 at 19:00 Approved by: Dinesh Gillette M.D. on 11/28/2021 at 19:04 Normal [facility] GLYCOHEMOGLOBIN A1Con 2020 ADA RECOMMENDATION ADA THERAPEUTIC TARG ET 6.0 - 7.0 ACTION SUGGESTED > 7.0 Normal [facility] Comment on above: Performed By: #### A 1C #### [facility] [address] [place] [address] Dr. Lotus Borrero Glucose [Mass/Vol] 140 mg/dL Normal [facility] Comment on above: Performed By: #### A 1C #### [facility] [address], [place] [address] Dr. Lotus Borrero HbA1c (Bld) [Mass fraction] 6.5 % Critically high <=6.0 [facility] Comment on above: Performed By: #### A 1C #### [facility] [address], [place] [address] Dr. Lotus Borrero CBC Auto DifferentialOrdered By: Sara Avery on 10-03-2020 [employer] # 0.[address] [facility] Work Phone: [employer] Immature Granulocyte <0.03 [employer] Work Phone: [employer] Lymph # 1.73 [employer] [facility] Work Phone: [employer] [place] # 0.57 [employer] Work Phone: Basophils (Bld) [#/Vol] 0.04 10*3/uL [employer] Work Phone: Basophils/100 WBC (Bld) 1 % 0 - 2 % [employer] Work Phone: Differential Type NOT REPORTED [employer] Work Phone: Eosinophils/100 WBC (Bld) 2 % 1 - 4 % [employer] Phone: Hematocrit (Bld) [Volume fraction] 48.1 % 40.7 - 50.3 % [employer] Work Phone: Hemoglobin.gastrointes tinal spec 1 Ql (Stl) 15.7 g/dL 13.0 - 17.0 g/dL [employer] Work Phone: Immature granulocytes/100 WBC (Bld) 0 % 0 [employer] Work Phone: Lymphocytes/100 WBC (Bld) 25 % 24 - 43 % [employer] Work Phone: MCH (RBC) [Entitic mass] 33.0 pg 25.2 - 33.5 pg [employer] Work Phone: MCHC (RBC) [Mass/Vol] 32.6 g/dL 28.4 - 34.8 g/dL [employer] Phone: MCV (RBC) [Entitic vol] 101.1 fL 82.6 - 102.9 fL [employer] Phone: Monocytes/100 WBC (Bld) 8 % 3 - 12 % [employer] Work Phone: NRBC Automated 0.0 0.0 per 100 WBC [employer] Phone: Platelet distribution width (Bld) [Ratio] 13.1 % 11.8 - 14.4 % [employer] Phone: Platelet Estimate NOT REPORTED [employer] Phone: Platelet mean volume (Bld) [Entitic vol] 11.2 fL 8.1 - 13.5 fL [employer] Phone: Platelets (Bld) [#/Vol] 165 10*3/uL [employer] Phone: RBC (Bld) [#/Vol] 4.76 10*6/uL 4.21 - 5.7 7 m/uL [employer] Work Phone: RBC (Bld) [#/Vol] NOT REPORTED [employer] Phone: Segmented neutrophils/100 WBC (Bld) 64 % 36 - 65 % [employer] Work Phone: Segs [employer] 4.50 [employer] Work Phone: WBC (Bld) [#/Vol] 7.0 10*3/uL [employer] Work Phone: WBC (Bld) [#/Vol] NOT REPORTED [employer] Work Phone: [employer] Work Phone: Comprehensive Metabolic Pane lOrdered By: Sara Avery on 10-03-2020 Albumin [Mass/Vol] 4.4 g/dL 3.5 - 5.2 g/dL [employer] Phone: Albumin/Globulin [Mass ratio] 1.6 {ratio} [employer] Phone: ALP (Bld) [Catalytic activity/Vol] 66 U/L 40 - 129 U/L [employer] Phone: ALT [Catalytic activity/Vol] 17 U/L 5 - 41 U/L [employer] Phone: Anion gap [Moles/Vol] 12 mmol/L 9 - 17 mmol/L [employer] Phone: AST [Catalytic activity/Vol] 15 U/L <40 [employer] Phone: Bilirubin [Mass/Vol] 0.57 mg/dL 0.3 - 1 .2 mg/dL [employer] Phone: Calcium [Mass/Vol] 9.1 mg/dL 8.6 - 10. 4 mg/dL [employer] Phone: Chloride [Moles/Vol] 104 mmol/L 98 - 10 7 mmol/L [employer] Phone: CO2 [Moles/Vol] 26 mmol/L 20 - 31 mmol/L [employer] Phone: Creatinine [Mass/Vol] 1.13 mg/dL 0.70 - 1.20 mg/dL [employer] Phone: Free PSA/Total PSA [Mass fraction] 7.2 g/dL 6.4 - 8.3 g/dL [employer] Phone: GFR >60 >60 mL/min [employer] Phone: GFR Non- >60 >60 mL/min [employer] Phone: Glucose [Mass/Vol] 121 mg/dL High 70 - 99 mg/dL [employer] Phone: Interpretation and review of laboratory results Abnormal [employer] Phone: Potassium [Moles/Vol] 4.7 mmol/L 3.7 - 5.3 mmol/L [employer] Phone: Sodium [Moles/Vol] 142 mmol/L 135 - 144 mmol/L [facility] Phone: Urea nitrogen (BldV) [Mass/Vol] 23 mg/dL 8 - 23 mg/dL [employer] Phone: Urea nitrogen/Creatinine (Bld) [Mass ratio] 20 [employer] Phone: [employer] Phone: Laboratory - Chemistry and C hemistry - challengeOrdered By: Sara Avery on 10-03-2020 GFR/1.73 sq M.predicted MDRD (S/P/Bld) [Vol rate/Area] [facility] Phone: Comment on above: Average GFR for 60-6 9 years old: 85 mL/min/1.73sq m Chronic Kidney Disease: <60 mL/min/1.73sq m Kidney failure: <15 mL/min/1.73sq m eGFR calculated using average adult body mass. Additional eGFR calculator available at: http://www.MC2/multiple_crcl_2012.htm Stage 1: Some kidney damage normal GFR Stage 2: Mild kidney damage GFR 60-89 Stage 3: Moderate kidney damage GFR 30-59 Stage 4: Severe kidney damage GFR 15-29 Stage 5: Severe kidney damage GFR <15 ESRD - chronic treatment by dialysis or transplant Lipid PanelOrdered By: Sara nichole on 10-03-2020 Cholesterol [Mass/Vol] 188 mg/dL <200 [employer] Phone: Comment on above: Cholesterol Guidelines: <200 Desirable 200-240 Borderline >240 Undesirable Cholesterol in HDL [Mass/Vol] 46 mg/dL >40 [facility]: Comment on above: HDL Guidelines: <40 Undesirable 40-59 Borderline >59 Desirable Cholesterol in LDL [Mass/Vol] 116 mg/dL 0 - 130 mg/dL [employer] Phone: Comment on above: LDL Guidelines: <100 Desirable 100-129 Near to/above Desirable 130-159 Borderline >159 Undesirable Direct (measured) LDL and calculated LDL are not interchangeable tests. Cholesterol in VLDL [Mass/Vol] NOT REPORTED 1 - 30 mg/dL [employer] Phone: Cholesterol.total/Chol esterol in HDL [Mass ratio] 4.1 {ratio} <5 [employer] Work Phone: Triglyceride [Mass/Vol] 131 mg/dL <150 [employer] Phone: Comment on above: Triglyceride Guidelines: <150 Desirable 150-199 Borderline 200-499 High >499 Very high Based on AHA Guidelines for fasting triglyceride, December 2011. [employer] Phone: PSA screeningOrdered By: Sara Avery on 10-03-2020 [employer] Phone: Vital Signs Date Time Vital Sign Value [facility] 03-03-2024 16:45-0500 Diastolic blood pressure 65 mm[Hg] Ann Jacobson MD Work Phone: [employer] 03-03-2024 16:45-0500 Heart rate 68 /min Ann Jacobson MD Work Phone: [employer] 03-03-2024 16:45-0500 Respiratory rate 13 /min Ann Jacobson MD Work Phone: [employer] 03-03-2024 16:45-0500 SaO2% (BldA) [Mass fraction] 97 % Ann Jacobson MD Work Phone: [employer] 03-03-2024 16:45-0500 Systolic blood pressure 144 mm[Hg] Ann Jacobson MD Work Phone: [employer] 03-03-2024 15:27-0500 Body temperature 98.1 [degF] Ann Jacobson MD Work Phone: [facility] [employer] 03-03-2024 15:25-0500 Body height 182.9 cm Ann Jacobson MD Work Phone: [facility] [employer] 03-03-2024 15:25-0500 Body mass index (BMI) [Ratio] 33.23 kg/m2 Ann Jacobson MD Work Phone: [facility] [employer] 03-03-2024 15:25-0500 Body weight 111.13 kg Ann Jacobson MD Work Phone: [facility] [employer] 05-01-2022 04:45-0500 Body height 182.9 cm Zack Pierce MD Work Phone: [facility] [employer] 05-01-2022 04:45-0500 Body mass index (BMI) [Ratio] 35.13 kg/m2 Zack Pierce MD Work Phone: [employer] 05-01-2022 04:45-0500 Body weight 117.48 kg Zack Pierce MD Work Phone: [facility] [employer] 05-01-2022 04:00-0500 Body temperature 98.71 [degF] Zack Pierce MD Work Phone: [facility] [employer] 05-01-2022 04:00-0500 Diastolic blood pressure 77 mm[Hg] Zack Pierce MD Work Phone: [employer] 05-01-2022 04:00-0500 Heart rate 82 /min Zack Pierce MD Work Phone: [facility] [employer] 05-01-2022 04:00-0500 Respiratory rate 16 /min Zack Pierce MD Work Phone: [facility] [employer] 05-01-2022 04:00-0500 SaO2% (BldA) [Mass fraction] 93 % Zack Pierce MD Work Phone: [facility] 05-01-2022 04:00-0500 Systolic blood pressure 118 mm[Hg] Zack Pierce MD Work Phone: [facility] Encounters Encounter Date Encounter Type Care Provider Facility Start: 12-05-2024 ambulatory Liz L Magda Facility: [facility] [place] Start: 11-15-2024 End: 11-15-2024 ambulatory Liz L Magda Facility:[facility] Start: 10-24-2024 End: 10-24-2024 ambulatory Liz L Magda Facility:[facility] Start: 10-02-2024 ambulatory [facility] Start: 09-26-2024 End: 09-26-2024 ambulatory LIZ MAGDA [facility] Start: 09-26-2024 End: 09-26-2024 Subsequent hospital visit by physician [facility] 2 [facility] Comment on above: Arrived Start: 08-01-2024 End: 08-01-2024 ambulatory LIZ MAGDA [facility] Start: 08-01-2024 End: 08-01-2024 Subsequent hospital visit by physician [facility] 3 [facility] Comment on above: Arrived Start: 07-18-2024 End: 07-18-2024 ambulatory SELENA SANTOSIN [facility] Start: 07-18-2024 End: 07-18-2024 Subsequent hospital visit by physician [facility] Rm 3 [facility] Comment on above: Arrived Start: 07-04-2024 End: 07-04-2024 ambulatory LIZ MAGDA [facility] Start: 07-04-2024 End: 07-04-2024 Subsequent hospital visit by physician [facility] Rm 3 [facility] Comment on above: Arrived Start: 06-20-2024 End: 06-20-2024 ambulatory LIZ MAGDA [facility] Start: 06-20-2024 End: 06-20-2024 Subsequent hospital visit by physician [facility] Rm 3 [facility] Comment on above: Arrived Start: 06-13-2024 End: 06-13-2024 ambulatory LIZ MAGDA [facility] Start: 06-13-2024 End: 06-13-2024 Subsequent hospital visit by physician [facility] Rm 3 [facility] Comment on above: Arrived Start: 06-06-2024 End: 06-06-2024 ambulatory LIZ MAGDA [facility] Start: 06-06-2024 End: 06-06-2024 Subsequent hospital visit by physician [facility] Rm 3 [facility] Comment on above: Arrived Start: 05-30-2024 End: 05-30-2024 ambulatory LIZ MAGDA [facility] Start: 05-30-2024 End: 05-30-2024 Subsequent hospital visit by physician [facility] Rm 3 [facility] Comment on above: Arrived Start: 05-16-2024 End: 05-16-2024 ambulatory LIZ MAGDA [facility] Start: 05-16-2024 End: 05-16-2024 Subsequent hospital visit by physician [facility] Rm 3 [facility] Comment on above: Arrived Start: 05-09-2024 End: 05-09-2024 ambulatory LIZ MAGDA [facility] Start: 05-09-2024 End: 05-09-2024 Subsequent hospital visit by physician [facility] Rm 3 [facility] Comment on above: Arrived Start: 04-25-2024 End: 04-25-2024 ambulatory LIZ MAGDA [facility] Start: 04-25-2024 End: 04-25-2024 Subsequent hospital visit by physician [facility] Rm 3 [facility] Comment on above: Arrived Start: 04-18-2024 End: 04-18-2024 ambulatory LIZ MAGDA [facility] Start: 04-18-2024 End: 04-18-2024 Subsequent hospital visit by physician [facility] Rm 3 [facility] Comment on above: Arrived Start: 04-11-2024 End: 04-11-2024 ambulatory [facility] Start: 04-11-2024 End: 04-11-2024 Subsequent hospital visit by physician [facility] Rm 1 [facility] Comment on above: Arrived Start: 04-04-2024 End: 04-06-2024 ambulatory LIZ [facility] Start: 04-04-2024 End: 04-06-2024 Subsequent hospital visit by physician [facility] Nuclear Room [facility] Comment on above: Arrived Start: 04-03-2024 End: 04-05-2024 ambulatory LIZ MAGDA [facility] Start: 04-03-2024 End: 04-05-2024 Subsequent hospital visit by physician [facility] Nuclear Room [facility] Comment on above: Arrived Shortness of breath; Coronary artery 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, unspecified vessel or lesion type, unspecified whether [place] or transplanted heart; Atrial premature depolarization; Typical atrial flutter (HCC); Presence of coronary angioplasty implant and graft; Other fatigue Start: 03-13-2024 End: 03-13-2024 ambulatory [facility] L [facility] Start: 03-03-2024 End: 03-03-2024 Emergency department patient visit Ann Jacobson MD Work Phone: [facility] Emergency Department Comment on above: Other fatigue (Prima ry Dx) Start: 02-21-2024 End: 02-21-2024 ambulatory Liz L Magda Facility:[facility] Ananya Start: 02-08-2024 End: 02-08-2024 ambulatory [facility] Start: 02-08-2024 End: 02-08-2024 Subsequent hospital visit by physician [facility] Cardiopulm Rehab Rm 2 [facility] Comment on above: Arrived Start: 02-01-2024 End: 02-01-2024 ambulatory [facility] Start: 02-01-2024 End: 02-01-2024 Subsequent hospital visit by physician [facility] Comment on above: Arrived Start: 01-25-2024 End: 01-25-2024 ambulatory [facility]ARA [facility] Start: 01-25-2024 End: 01-25-2024 Subsequent hospital visit by physician [facility] Cardiopulm Rehab Rm 2 [facility] Cardiac Rehab Comment on above: Arrived Start: 01-18-2024 End: 01-18-2024 ambulatory [facility] Start: 01-18-2024 End: 01-18-2024 Subsequent hospital visit by physician [facility] Cardiopulm Rehab Rm 2 [facility] Cardiac Rehab Comment on above: Arrived Start: 01-11-2024 End: 01-11-2024 ambulatory SARA [facility] Start: 01-04-2024 End: 01-04-2024 ambulatory [facility] Start: 01-04-2024 End: 01-04-2024 Subsequent hospital visit by physician [facility] Cardiopulm Rehab Rm 2 [facility] Cardiac Rehab Comment on above: Arrived Start: 12-28-2023 End: 12-28-2023 ambulatory SARA [facility] Start: 12-21-2023 End: 12-21-2023 ambulatory SARA [facility] Start: 12-21-2023 End: 12-21-2023 Subsequent hospital visit by physician [facility] Cardiopulm Rehab Rm 3 [facility] Cardiac Rehab Comment on above: Arrived Start: 10-29-2023 End: 10-29-2023 ambulatory [facility] Start: 10-29-2023 End: 10-29-2023 Subsequent hospital visit by physician [facility] Cardiopulm Rehab Rm 3 [facility] Cardiac Rehab Comment on above: Arrived Start: 10-22-2023 End: 10-22-2023 ambulatory SARA [facility] Start: 10-08-2023 End: 10-08-2023 ambulatory SARA [facility] Start: 09-16-2023 End: 09-16-2023 Subsequent hospital visit by physician Sara Avery MD [facility] Laboratory Start: 06-04-2023 End: 06-04-2023 Subsequent hospital visit by physician [facility] Cardiopulm Rehab Rm 2 [facility] Cardiac Rehab Comment on above: Arrived Start: 05-28-2023 End: 05-28-2023 Subsequent hospital visit by physician [facility] Cardiopulm Rehab Rm 2 [facility] Cardiac Rehab Comment on above: Arrived Start: 04-30-2023 End: 04-30-2023 Subsequent hospital visit by physician [facility] Cardiopulm Rehab Rm 3 [facility] Cardiac Rehab Comment on above: Arrived Start: 04-23-2023 End: 04-23-2023 Subsequent hospital visit by physician [facility] Cardiopulm Rehab Rm 3 [facility] Cardiac Rehab Comment on above: Arrived Start: 03-05-2023 End: 03-05-2023 Subsequent hospital visit by physician [facility] Cardiopulm Rehab Rm 3 [facility] Cardiac Rehab Comment on above: Arrived Start: 11-06-2022 End: 11-06-2022 Subsequent hospital visit by physician [facility] Cardiopulm Rehab Rm 1 [facility] Cardiac Rehab Comment on above: Arrived Start: 09-18-2022 End: 09-18-2022 Subsequent hospital visit by physician [facility] Cardiopulm Rehab Rm 1 [facility] Cardiac Rehab Start: 09-04-2022 End: 09-04-2022 Subsequent hospital visit by physician [facility] Cardiopulm Rehab Rm 1 [facility] Cardiac Rehab Comment on above: Arrived Start: 08-28-2022 End: 08-28-2022 Subsequent hospital visit by physician [facility] Cardiopulm Rehab Rm 1 [facility] Cardiac Rehab Comment on above: Arrived Start: 08-14-2022 End: 08-14-2022 Subsequent hospital visit by physician [facility] Cardiopulm Rehab Rm 1 [facility] Cardiac Rehab Comment on above: Arrived Start: 08-07-2022 End: 08-07-2022 Subsequent hospital visit by physician [facility] Cardiopulm Rehab Rm 1 [facility] Cardiac Rehab Comment on above: Arrived Start: 07-23-2022 End: 07-23-2022 Subsequent hospital visit by physician [facility] Cardiopulm Rehab Rm 1 [facility] Cardiac Rehab Comment on above: Arrived Start: 07-22-2022 End: 07-22-2022 Subsequent hospital visit by physician [facility] Cardiopulm Rehab Rm 1 [facility] Cardiac Rehab Comment on above: Arrived Start: 07-16-2022 End: 07-16-2022 Subsequent hospital visit by physician [facility] Cardiopulm Rehab Rm 1 [facility] Cardiac Rehab Comment on above: Arrived Start: 07-15-2022 End: 07-15-2022 Subsequent hospital visit by physician [facility] Cardiopulm Rehab Rm 1 [facility] Cardiac Rehab Comment on above: Arrived Start: 07-13-2022 End: 07-13-2022 Subsequent hospital visit by physician [facility] Cardiopulm Rehab Rm 1 [facility] Cardiac Rehab Comment on above: Arrived Start: 07-09-2022 End: 07-09-2022 Subsequent hospital visit by physician [facility] Cardiopulm Rehab Rm 1 [facility] Laboratory Comment on above: Arrived Start: 07-08-2022 End: 07-08-2022 Subsequent hospital visit by physician [facility] Cardiopulm Rehab Rm 1 [facility] Cardiac Rehab Comment on above: Arrived Start: 07-06-2022 End: 07-06-2022 Subsequent hospital visit by physician [facility] Cardiopulm Rehab Rm 1 [facility] Cardiac Rehab Comment on above: Arrived Start: 07-01-2022 End: 07-01-2022 Subsequent hospital visit by physician [facility] Cardiopulm Rehab Rm 1 [facility] Cardiac Rehab Comment on above: Arrived Start: 06-29-2022 End: 06-29-2022 Subsequent hospital visit by physician [facility] Cardiopulm Rehab Rm 1 [facility] Cardiac Rehab Comment on above: Arrived Start: 06-25-2022 End: 06-25-2022 Subsequent hospital visit by physician [facility] Cardiopulm Rehab Rm 1 [facility] Cardiac Rehab Comment on above: Arrived Start: 06-24-2022 End: 06-24-2022 Subsequent hospital visit by physician [facility] Cardiopulm Rehab Rm 1 [facility] Cardiac Rehab Comment on above: Arrived Start: 06-22-2022 End: 06-22-2022 Subsequent hospital visit by physician [facility] Cardiopulm Rehab Rm 1 [facility] Cardiac Rehab Comment on above: Arrived Start: 06-17-2022 End: 06-17-2022 Subsequent hospital visit by physician [facility] Cardiopulm Rehab Rm 1 [facility] Cardiac Rehab Comment on above: Arrived Start: 06-15-2022 End: 06-15-2022 Subsequent hospital visit by physician [facility] Cardiopulm Rehab Rm 1 [facility] Cardiac Rehab Comment on above: Arrived Start: 06-11-2022 End: 06-11-2022 Subsequent hospital visit by physician SAMMY Aleman RD Work Phone: [facility] Diet and Nutrition Comment on above: Arrived Start: 06-10-2022 End: 06-10-2022 Subsequent hospital visit by physician [facility] Cardiopulm Rehab Rm 1 [facility] Cardiac Rehab Comment on above: Arrived Start: 06-08-2022 End: 06-08-2022 Subsequent hospital visit by physician [facility] Cardiopulm Rehab Rm 1 [facility] Cardiac Rehab Comment on above: Arrived Start: 06-04-2022 End: 06-04-2022 Subsequent hospital visit by physician [facility] Cardiopulm Rehab Rm 1 [facility] Cardiac Rehab Comment on above: Arrived Start: 06-03-2022 End: 06-03-2022 Subsequent hospital visit by physician [facility] Cardiopulm Rehab Rm 1 [facility] Cardiac Rehab Comment on above: Arrived Start: 06-01-2022 End: 06-01-2022 Subsequent hospital visit by physician [facility] Cardiopulm Rehab 1 [facility] Cardiac Rehab Comment on above: Arrived Start: 05-28-2022 End: 05-28-2022 Subsequent hospital visit by physician [facility] Cardiopulm Rehab Rm 1 [facility] Cardiac Rehab Comment on above: Arrived Start: 05-27-2022 End: 05-27-2022 Subsequent hospital visit by physician [facility] Cardiopulm Rehab Rm 1 [facility] Cardiac Rehab Comment on above: Arrived Start: 05-25-2022 End: 05-25-2022 Subsequent hospital visit by physician [facility] Cardiopulm Rehab Rm 1 [facility] Cardiac Rehab Comment on above: Arrived Start: 05-20-2022 End: 05-20-2022 Subsequent hospital visit by physician [facility] Cardiopulm Rehab Rm 1 [facility] Cardiac Rehab Comment on above: Arrived Start: 05-18-2022 End: 05-18-2022 Subsequent hospital visit by physician [facility] Cardiopulm Rehab Rm 1 [facility] Cardiac Rehab Comment on above: Arrived Start: 05-14-2022 End: 05-14-2022 Subsequent hospital visit by physician [facility] Cardiopulm Rehab Rm 1 [facility] Cardiac Rehab Comment on above: Arrived Start: 05-13-2022 End: 05-13-2022 Subsequent hospital visit by physician [facility] Cardiopulm Rehab Rm 1 [facility] Cardiac Rehab Comment on above: Arrived Start: 05-11-2022 End: 05-11-2022 Subsequent hospital visit by physician [facility] Cardiopulm Rehab Rm 1 [facility] Cardiac Rehab Comment on above: Arrived Start: 05-05-2022 End: 05-05-2022 Subsequent hospital visit by physician [facility] Cr Education Room [facility] Cardiac Rehab Comment on above: Arrived Start: 04-30-2022 End: 05-01-2022 Evaluation and management of inpatient Zack Pierce MD Work Phone: [facility] CVICU Comment on above: History of PTCA (Sarah henderson Dx) Start: 04-17-2022 End: 04-17-2022 Subsequent hospital visit by physician [facility] Cardiology Stress Room [facility] Stress Lab Comment on above: Shortness of breath; 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 ([facility]); Presence of coronary angioplasty implant and graft; Chest pain, unspecified type Start: 11-26-2021 End: 11-27-[address] NICKI LIN Facility:[facility] Start: 01-06-2021 End: 01-07-[address] SARA AVERY Facility:[facility] Start: 10-03-2020 End: 10-03-2020 Subsequent hospital visit by physician Sara Avery Work Phone: [facility] Laboratory Procedures Date Procedure Procedure Detail Performing Clinician Start: 09-26-2024 Comprehensive metabo lic panel Selena Burks MD Work Phone: Start: 09-26-2024 Lipid panel Selena ruby MD Work Phone: Start: 04-04-2024 Myocardial spect mul tiple studies Selena Burks MD Work Phone: Start: 04-03-2024 Comprehensive metabo lic panel Selena Burks MD Work Phone: Start: 04-03-2024 Lipid panel Selena ruby MD Work Phone: Start: 03-03-2024 Assay of troponin quantitative Radha Jolley PA-C Work Phone: Start: 03-03-2024 LACTATE, SEPSIS Phil silva Samreen PA-C Work Phone: Start: 03-03-2024 Ct head/brain w/o co ntrast material Radha Antoineleroy MOREAU-C Work Phone: Start: 03-03-2024 Radiologic exam ches t single view Radha Antoineleroy MOREAU-C Work Phone: Start: 03-03-2024 RESPIRATORY PANEL, MOLECULAR, WITH COVID-19 Radha Antoineleroy MOREAU-C Work Phone: Start: 03-03-2024 End: 03-03-2024 Comprehensive metabolic panel Radha Antoineleroy MOREAU-C Work Phone: Start: 03-03-2024 Ecg routine ecg w/le ast 12 lds w/i&r Radha Antoineleroy MOREAU-C Work Phone: Start: 09-16-2023 Comprehensive metabo lic panel Mague Leezoie [employer] Work Phone: Start: 09-16-2023 Lipid panel Mague lino [employer] MANAGER Work Phone: Start: 07-09-2022 Creatine kinase total F ellen Burks MD Work Phone: Start: 07-09-2022 Lipid panel Selena ruby MD Work Phone: Start: 05-01-2022 Basic metabolic pane l calcium total Zack Pierce MD Work Phone: Start: 04-30-2022 Ecg routine ecg w/le ast 12 lds w/i&r Zack Pierce MD Work Phone: Start: 04-30-2022 Intermittent pulse oximetry Zack Pierce MD Work Phone: Start: 10-03-2020 PSA screening Sara William jones Work Phone: Comment on above: The Susan ECLIA as say is used. Results obtained with different assay methods cannot be used interchangeably. Start: 10-03-2020 Comprehensive metabo lic panel Sara Avery Work Phone: Start: 10-03-2020 Lipid panel Sara Bang Work Phone: History of percutane ous transluminal coronary angioplasty History of PTCA Zack Pierce MD Work Phone: Plan of Treatment Date Care Activity Detail Author Start: 2027 Respiratory Syncytia l Virus (RSV) or age 60 yrs+ (1 - 1-dose 75+ series) Respiratory Syncytial Virus (RSV) or age 60 yrs+ (1 - 1-dose 75+ series) [facility] Start: 09-26-2025 GFR test (Diabetes, CKD 3-4, OR last GFR 15-59) GFR test (Diabetes, CKD 3-4, OR last GFR 15-59) [facility] Start: 09-26-2025 Lipid panel Lipids [place] [facility] Start: 04-03-2025 GFR test (Diabetes, CKD 3-4, OR last GFR 15-59) GFR test (Diabetes, CKD 3-4, OR last GFR 15-59) [facility] Start: 04-03-2025 Lipid panel Lipids [facility] Start: 03-03-2025 GFR test (Diabetes, CKD 3-4, OR last GFR 15-59) GFR test (Diabetes, CKD 3-4, OR last GFR 15-59) [facility] Start: 12-12-2024 End: 12-12-2024 Patient encounter procedure 12/12/2024 10:00 AM EDT Appointment [facility] Cardiac Rehab [address] [place] [id number] [facility] Cardiac Rehab Start: 12-05-2024 End: 12-05-2024 Patient encounter procedure 12/05/2024 10:00 AM EDT Appointment [facility] Cardiac Rehab [address] [place] [phone] [facility] Cardiac Rehab Start: 11-28-2024 End: 11-28-2024 Patient encounter procedure 11/28/2024 10:00 AM EDT Appointment [facility] [address] [facility] [place] [address] [facility] Cardiac Rehab Start: 11-21-2024 End: 11-21-2024 Patient encounter procedure 11/21/2024 10:00 AM EDT [facility]ment [facility] [address] [facility] [place] [address] [facility] Cardiac Rehab Start: 11-14-2024 End: 11-14-2024 Patient encounter procedure 11/14/2024 10:00 AM EDT [facility]ment [facility] [address] [facility] [place] [address] [facility] Card[facility] Rehab Start: 11-07-2024 End: 11-07-2024 Patient encounter procedure 11/07/2024 10:00 AM EDT [facility]ment [facility] [address] [facility] [place] [address] [facility] Card[facility] Rehab Start: 10-31-2024 End: 10-31-2024 Patient encounter procedure 10/31/2024 10:00 AM EDT [facility] [address] [place] [address] [facility] Cardiac Rehab Start: 10-24-2024 End: 10-24-2024 Patient encounter procedure 10/24/2024 10:00 AM EDT [facility]ment [facility] [address] [facility] [place] [address] [facility] Cardiac Rehab Start: 10-17-2024 End: 10-17-2024 Patient encounter procedure 10/17/2024 10:00 AM EDT Appointment [facility] Cardiac Rehab [address] [place] [address] [facility] Cardiac Rehab Start: 10-13-2024 Influenza vaccination [facility] on [facility] Start: 10-10-2024 End: 10-10-2024 Patient encounter procedure 10/10/2024 10:00 AM EDT Appointment [facility] Cardiac Rehab [address] [place] [address] [facility] Card[facility] Re[facility] Start: 10-03-2024 End: 10-03-2024 Patient encounter procedure 10/03/2024 10:00 AM EDT Appointment [facility] Cardiac Rehab [address] [place] [address] [facility] Cardiac Rehab Start: 09-15-2024 GFR test (Diabetes, CKD 3-4, OR last GFR 15-59) GFR test (Diabetes, CKD 3-4, OR last GFR 15-59) [facility] Start: 09-15-2024 Hemoglobin A1c measurement A1C test (Diabetic or Prediabetic) [facility] Start: 09-15-2024 Lipid panel Lipids [facility] Start: 08-08-2024 End: 08-08-2024 Patient encounter procedure 08/08/2024 8:00 AM EDT Appointment [facility] Cardiac Rehab [address] [place] [address] [facility] Card[facility] Re[facility] Start: 08-01-2024 End: 08-01-2024 Patient encounter procedure 08/01/2024 8:00 AM EDT Appointment [facility] Cardiac Rehab [address] [place] [address] [facility] Card[facility] Start: 07-25-2024 End: 07-25-2024 Patient encounter procedure 07/25/2024 8:00 AM EDT Appointment [facility] Cardiac Rehab [address] [place] [address] [facility] Card[facility] Re[facility] Start: 07-18-2024 End: 07-18-2024 Patient encounter procedure 07/18/2024 8:00 AM EDT Appointment [facility] Cardiac Rehab [address] [place] [address] [facility] Card[facility] Start: 07-11-2024 End: 07-11-2024 Patient encounter procedure 07/11/2024 8:00 AM EDT Appointment [facility] Cardiac Rehab [address] [place] [address] [facility] Card[facility] Re[facility] Start: 07-04-2024 End: 07-04-2024 Patient encounter procedure 07/04/2024 8:00 AM EDT Appointment [facility] Cardiac Rehab [address] [place] [address] [facility] Card[facility] Re[facility] Start: 06-27-2024 End: 06-27-2024 Patient encounter procedure 06/27/2024 8:00 AM EDT Appointment [facility] Cardiac Rehab [address] [place] [address] [facility] Cardiac Re[facility] Start: 06-20-2024 End: 06-20-2024 Patient encounter procedure 06/20/2024 8:00 AM EDT Appointment [facility] [address] [facility] [place] [address] [facility] Cardiac Rehab Start: 06-13-2024 End: 06-13-2024 Patient encounter procedure 06/13/2024 8:00 AM EDT Appointment [facility] [address] [place] [address] [facility] Card[facility] Start: 06-06-2024 End: 06-06-2024 Patient encounter procedure 06/06/2024 8:00 AM EDT [facility]ment [facility] [address] [place] [address] [facility] Card[facility] Start: 05-30-2024 End: 05-30-2024 Patient encounter procedure 05/30/2024 8:00 AM EDT Appointment [facility] Card[facility] Re[facility] [address] [place] [address] [facility] Card[facility] Start: 05-23-2024 End: 05-23-2024 Patient encounter procedure 05/23/2024 8:00 AM EDT [facility]ment [facility] [address] [place] [address] [facility] Start: 05-16-2024 End: 05-16-2024 Patient encounter procedure 05/16/2024 8:00 AM EST [facility] [address] [place] [address] [facility] Start: 05-09-2024 End: 05-09-2024 Patient encounter procedure 05/09/2024 8:00 AM EST [facility]ment [facility] [address] [place] [address] [facility] Card[facility] Start: 05-02-2024 End: 05-02-2024 Patient encounter procedure 05/02/2024 8:00 AM EST [facility]ment [facility] [address] [place] [address] [facility] Card[facility] Start: 04-25-2024 End: 04-25-2024 Patient encounter procedure 04/25/2024 8:00 AM EST Appointment [facility] [address] [facility] [place] [address] [facility] Card[facility] Start: 04-04-2024 End: 04-04-2024 Patient encounter procedure [facility] Comment on above: *s* pt/media Start: 03-21-2024 End: 03-21-2024 Patient encounter procedure 03/21/2024 7:30 AM EST [facility]ment [facility] [address] [facility] [place] [address] [facility] Card[facility] Re[facility] Start: 03-15-2024 Annual Wellness Visi t (Medicare Advantage) Annual Wellness Visit (Medicare Advantage) [facility] Start: 02-29-2024 End: 02-29-2024 Patient encounter procedure 02/29/2024 7:30 AM EST [facility]ment [facility] [address] [facility] [place] [address] [facility] Start: 02-22-2024 End: 02-22-2024 Patient encounter procedure 02/22/2024 7:30 AM EST [facility]ment [facility] [address] [facility] [place] [address] [facility] Start: 02-15-2024 End: 02-15-2024 Patient encounter procedure 02/15/2024 7:30 AM EST [facility]ment [facility] [address] [facility] [place] [address] [facility] Card[facility] Start: 02-08-2024 End: 02-08-2024 Patient encounter procedure 02/08/2024 7:30 AM EST [facility]ment [facility] [address] [facility] [place] [address] [facility] Start: 02-01-2024 End: 02-01-2024 Patient encounter procedure 02/01/2024 7:30 AM EST [facility]ment [facility] [address] [facility] [place] [address] [facility] Card[facility] Start: 01-25-2024 End: 01-25-2024 Patient encounter procedure 01/25/2024 7:30 AM EST [facility]ment [facility] [address] [facility] [place] [address] [facility] Start: 01-18-2024 End: 01-18-2024 Patient encounter procedure 01/18/2024 7:30 AM EST [facility]ment [facility] [address] [facility] [place] [address] [facility] Start: 01-11-2024 End: 01-11-2024 Patient encounter procedure 01/11/2024 7:30 AM EDT Appointment [facility] Card[facility] Re[facility] [address] [place] [address] [facility] Start: 01-04-2024 End: 01-04-2024 Patient encounter procedure 01/04/2024 7:30 AM EDT [facility]ment [facility] [address] [place] [address] [facility] Start: 12-28-2023 End: 12-28-2023 Patient encounter procedure 12/28/2023 7:30 AM EDT [facility]ment [facility] [address] [place] [address] [facility] Start: 11-28-2023 Lipid panel Lipids [facility] Start: 11-19-2023 End: 11-19-2023 Patient encounter procedure 11/19/2023 7:30 AM EDT [facility]ment [facility] [address] [place] [address] [facility] Start: 11-14-2023 COVID-19 Vaccine ( season) COVID-19 Vaccine () [facility] Start: 11-14-2023 COVID-19 Vaccine ( season) COVID-19 Vaccine () [facility] Start: 11-12-2023 End: 11-12-2023 Patient encounter procedure 11/12/2023 7:30 AM EDT Appointment [facility] Card[facility] Re[facility] [address] [place] [address] [facility] Start: 11-05-2023 End: 11-05-2023 Patient encounter procedure 11/05/2023 7:30 AM EDT Appointment [facility] Cardiac Rehab [address] [place] [address] [facility] Start: 10-14-2023 Influenza vaccination Flu vaccine (# 1) [facility] Start: 10-08-2023 End: 10-08-2023 Patient encounter procedure 10/08/2023 7:30 AM EDT Appointment [facility] Cardiac Rehab [address] [facility] [place] [address] [facility] Start: 10-01-2023 End: 10-01-2023 Patient encounter procedure 10/01/2023 7:30 AM EDT Appointment [facility] Card[facility] Rehab [address] [place] [address] [facility] Start: 09-24-2023 End: 09-24-2023 Patient encounter procedure 09/24/2023 7:30 AM EDT Appointment [facility] Card[facility] Rehab [address] [place] [address] [facility] Start: 07-10-2023 Lipid panel [facility] [facility] Start: 07-09-2023 End: 07-09-2023 Patient encounter procedure 07/09/2023 7:30 AM EDT Appointment [facility] [address] [place] [address] [facility] Start: 07-02-2023 End: 07-02-2023 Patient encounter procedure 07/02/2023 7:30 AM EDT Appointment [facility] [address] [place] [address] [facility] Start: 06-25-2023 End: 06-25-2023 Patient encounter procedure 06/25/2023 7:30 AM EDT Appointment [facility] [address] [place] [address] [facility] Start: 06-18-2023 End: 06-18-2023 Patient encounter procedure 06/18/2023 7:30 AM EDT Appointment [facility] [address] [place] [address] [facility] Start: 06-11-2023 End: 06-11-2023 Patient encounter procedure 06/11/2023 7:30 AM EDT Appointment [facility] [address] [place] [address] [facility] Start: 06-04-2023 End: 06-04-2023 Patient encounter procedure 06/04/2023 7:30 AM EDT Appointment [facility] [address] [place] [address] [facility] Start: 05-28-2023 End: 05-28-2023 Patient encounter procedure 05/28/2023 7:30 AM EDT Appointment [facility] [address] [place] [id number] [facility] Start: 05-21-2023 End: 05-21-2023 Patient encounter procedure 05/21/2023 7:30 AM EST Appointment [facility] [address] [place] [address] [facility] Start: 05-14-2023 End: 05-14-2023 Patient encounter procedure 05/14/2023 7:30 AM EST Appointment [facility] [address] [place] [address] [facility] Start: 05-07-2023 End: 05-07-2023 Patient encounter procedure 05/07/2023 7:30 AM EST Appointment [facility] [address] [place] [address] [facility] Start: 05-01-2023 GFR test (Diabetes, CKD 3-4, OR last GFR 15-59) GFR test (Diabetes, CKD 3-4, OR last GFR 15-59) [facility] Start: 04-30-2023 End: 04-30-2023 Patient encounter procedure 04/30/2023 7:30 AM EST Appointment [facility] [address] [place] [phone] [facility] Start: 04-23-2023 End: 04-23-2023 Patient encounter procedure 04/23/2023 7:30 AM EST Appointment [facility] [address] [place] [id number] [facility] Start: 04-16-2023 End: 04-16-2023 Patient encounter procedure 04/16/2023 7:30 AM EST Appointment [facility] [address] [place] [address] [facility] Start: 04-10-2023 Lipid panel Lipids [facility] Start: 04-09-2023 End: 04-09-2023 Patient encounter procedure 04/09/2023 7:30 AM EST Appointment [facility] [address] [facility] [place] [address] [facility] Start: 04-08-2023 COVID-19 Vaccine () COVID-19 Vaccine () [facility] Start: 04-02-2023 End: 04-02-2023 Patient encounter procedure 04/02/2023 7:30 AM EST Appointment [facility] [address] [place] [address] [facility] Start: 03-26-2023 End: 03-26-2023 Patient encounter procedure 03/26/2023 7:30 AM EST Appointment [facility] [address] [place] [address] [facility] Start: 03-19-2023 End: 03-19-2023 Patient encounter procedure 03/19/2023 7:30 AM EST Appointment [facility] [address] [place] [address] [facility] Start: 03-15-2023 Annual Wellness Visi t (Medicare Advantage) Annual Wellness Visit (Medicare Advantage) [facility] Start: 03-12-2023 End: 03-12-2023 Patient encounter procedure 03/12/2023 7:30 AM EST Appointment [facility] [address] [place] [address] [facility] Start: 11-27-2022 End: 11-27-2022 Patient encounter procedure 11/27/2022 Appointment Cardiac Rehabilitation [facility] Start: 11-20-2022 End: 11-20-2022 Patient encounter procedure 11/20/2022 Appointment Cardiac Rehabilitation [facility] Start: 11-13-2022 End: 11-13-2022 Patient encounter procedure 11/13/2022 Appointment Cardiac Rehabilitation [facility] Start: 10-30-2022 End: 10-30-2022 Patient encounter procedure 10/30/2022 Appointment Cardiac Rehabilitation [facility] Start: 10-23-2022 End: 10-23-2022 Patient encounter procedure 10/23/2022 Appointment Cardiac Rehabilitation [facility] Start: 10-16-2022 End: 10-16-2022 Patient encounter procedure 10/16/2022 Appointment Cardiac Rehabilitation [facility] Start: 10-13-2022 Influenza vaccination [facility] Start: 10-09-2022 End: 10-09-2022 Patient encounter procedure 10/09/2022 Appointment Cardiac Rehabilitation [facility] Start: 10-02-2022 End: 10-02-2022 Patient encounter procedure 10/02/2022 Appointment Cardiac Rehabilitation [facility] Start: 09-25-2022 End: 09-25-2022 Patient encounter procedure 09/25/2022 Appointment Cardiac Rehabilitation [facility] Start: 09-18-2022 End: 09-18-2022 Patient encounter procedure 09/18/2022 Appointment Cardiac Rehabilitation [facility] Start: 09-11-2022 End: 09-11-2022 Patient encounter procedure 09/11/2022 Appointment Cardiac Rehabilitation [facility] Start: 09-04-2022 End: 09-04-2022 Patient encounter procedure 09/04/2022 Appointment Cardiac Rehabilitation [facility] Start: 07-30-2022 End: 07-30-2022 Patient encounter procedure 07/30/2022 Appointment Cardiac Rehabilitation [facility] Start: 07-29-2022 End: 07-29-2022 Patient encounter procedure 07/29/2022 Appointment Cardiac Rehabilitation [facility] Start: 07-27-2022 End: 07-27-2022 Patient encounter procedure 07/27/2022 Appointment Cardiac Rehabilitation [facility] Start: 07-23-2022 End: 07-23-2022 Patient encounter procedure 07/23/2022 Appointment Cardiac Rehabilitation [facility] Start: 07-22-2022 End: 07-22-2022 Patient encounter procedure 07/22/2022 Appointment Cardiac Rehabilitation [facility] Start: 07-20-2022 End: 07-20-2022 Patient encounter procedure 07/20/2022 Appointment Cardiac Rehabilitation [facility] Start: 07-16-2022 End: 07-16-2022 Patient encounter procedure 07/16/2022 Appointment Cardiac Rehabilitation [facility] Start: 07-15-2022 End: 07-15-2022 Patient encounter procedure 07/15/2022 Appointment Cardiac Rehabilitation [facility] Start: 07-13-2022 End: 07-13-2022 Patient encounter procedure 07/13/2022 Appointment Cardiac Rehabilitation [facility] Start: 07-09-2022 End: 07-09-2022 Patient encounter procedure 07/09/2022 Appointment Cardiac Rehabilitation [facility] Start: 07-08-2022 End: 07-08-2022 Patient encounter procedure 07/08/2022 Appointment Cardiac Rehabilitation [facility] Start: 07-06-2022 End: 07-06-2022 Patient encounter procedure 07/06/2022 Appointment Cardiac Rehabilitation [facility] Start: 07-02-2022 End: 07-02-2022 Patient encounter procedure 07/02/2022 Appointment Cardiac Rehabilitation [facility] Start: 07-01-2022 End: 07-01-2022 Patient encounter procedure 07/01/2022 Appointment Cardiac Rehabilitation [facility] Start: 06-29-2022 End: 06-29-2022 Patient encounter procedure 06/29/2022 Appointment Cardiac Rehabilitation [facility] Start: 06-25-2022 End: 06-25-2022 Patient encounter procedure 06/25/2022 Appointment Cardiac Rehabilitation [facility] Start: 06-24-2022 End: 06-24-2022 Patient encounter procedure 06/24/2022 Appointment Cardiac Rehabilitation [facility] Start: 06-22-2022 End: 06-22-2022 Patient encounter procedure 06/22/2022 Appointment Cardiac Rehabilitation [facility] Start: 06-18-2022 End: 06-18-2022 Patient encounter procedure 06/18/2022 Appointment Cardiac Rehabilitation [facility] Start: 06-17-2022 End: 06-17-2022 Patient encounter procedure 06/17/2022 Appointment Cardiac Rehabilitation [facility] Start: 06-15-2022 End: 06-15-2022 Patient encounter procedure 06/15/2022 Appointment Cardiac Rehabilitation [facility] Start: 06-11-2022 End: 06-11-2022 Patient encounter procedure [facility] Start: 06-10-2022 End: 06-10-2022 Patient encounter procedure 06/10/2022 Appointment Cardiac Rehabilitation [facility] Start: 06-08-2022 End: 06-08-2022 Patient encounter procedure 06/08/2022 Appointment Cardiac Rehabilitation [facility] Start: 06-04-2022 End: 06-04-2022 Patient encounter procedure 06/04/2022 Appointment Cardiac Rehabilitation [facility] Start: 06-03-2022 End: 06-03-2022 Patient encounter procedure 06/03/2022 Appointment Cardiac Rehabilitation [facility] Start: 06-01-2022 End: 06-01-2022 Patient encounter procedure 06/01/2022 Appointment Cardiac Rehabilitation [facility] Start: 05-28-2022 End: 05-28-2022 Patient encounter procedure 05/28/2022 Appointment Cardiac Rehabilitation [facility] Start: 05-27-2022 End: 05-27-2022 Patient encounter procedure 05/27/2022 Appointment Cardiac Rehabilitation [facility] Start: 05-25-2022 End: 05-25-2022 Patient encounter procedure 05/25/2022 Appointment Cardiac Rehabilitation [facility] Start: 05-21-2022 End: 05-21-2022 Patient encounter procedure 05/21/2022 Appointment Cardiac Rehabilitation [facility] Start: 05-20-2022 End: 05-20-2022 Patient encounter procedure 05/20/2022 Appointment Cardiac Rehabilitation [facility] Start: 05-18-2022 End: 05-18-2022 Patient encounter procedure 05/18/2022 Appointment Cardiac Rehabilitation [facility] Start: 05-14-2022 End: 05-14-2022 Patient encounter procedure 05/14/2022 Appointment Cardiac Rehabilitation [facility] Start: 05-13-2022 End: 05-13-2022 Patient encounter procedure 05/13/2022 Appointment Cardiac Rehabilitation [facility] Start: 05-11-2022 End: 05-11-2022 Patient encounter procedure 05/11/2022 Appointment Cardiac Rehabilitation [facility] Start: 04-20-2022 End: 04-20-2022 Patient encounter procedure 04/20/2022 Appointment [facility] Start: 10-13-2021 Influenza vaccination Flu vaccine (# 1) [facility] Start: 10-03-2021 Hemoglobin A1c measurement A1C test (Diabetic or Prediabetic) [facility] Start: 11-13-2020 Influenza vaccination Flu [facility] (# [facility] Start: 10-03-2020 Annual Wellness Visi t (AWV) Annual Wellness Visit (AWV) [facility] Start: 2017 Abdominal aortic aneurysm screening AAA screen [facility] Start: 2017 Pneumococcal 65+ yea rs Vaccine (1 - PCV) Pneumococcal 65+ years Vaccine (1 - PCV) [facility] Start: 2017 Pneumococcal 65+ yea rs Vaccine (1 of 1 - PCV) Pneumococcal 65+ years Vaccine (1 of 1 - PCV) [facility] Start: 2012 Respiratory Syncytia l Virus (RSV) or age 60 yrs+ (1 - 1-dose 60+ series) Respiratory Syncytial Virus (RSV) or age 60 yrs+ (1 - 1-dose 60+ series) [facility] Start: 2012 Respiratory Syncytia l Virus (RSV) or age 60 yrs+ (1 - Risk 60-74 years 1-dose series) Respiratory Syncytial Virus (RSV) or age 60 yrs+ (1 - Risk 60-74 years 1-dose series) [facility] Start: 2002 Pneumococcal 50+ yea rs Vaccine (1 of 1 - PCV) Pneumococcal 50+ years Vaccine (1 of 1 - PCV) [facility] Start: 2002 Shingles vaccine (1 of 2) Shingles vaccine (1 of 2) [facility] Start: 1997 Screening for malign ant neoplasm of colon [facility] Start: 1971 DTaP/Tdap/Td vaccine (1 - Tdap) DTaP/Tdap/Td vaccine (1 - Tdap) [facility] Start: 1970 Hepatitis C screening Hepatitis C sc reen [facility] Start: 1964 COVID-19 Vaccine (1) COVID-19 Vaccin e (1) [employer] Work Phone: Start: 1964 Depression Screen Depression Screen [facility] Start: 1952 COVID-19 Vaccine (#1) COVID-19 Vacci ne (#1) [facility] CARDIAC PHASE II CARDIAC PHASE I I Card Rehab Ordered: 05/11/2022 [employer] Comment on above: Ordered: 05/11/2022 CARDIAC PHASE II CARDIAC PHASE I I Card Rehab Ordered: 05/13/2022 [facility] Comment on above: Ordered: 05/13/2022 CARDIAC PHASE II CARDIAC PHASE I I Card Rehab Ordered: 05/14/2022 [facility] Comment on above: Ordered: 05/14/2022 CARDIAC PHASE II CARDIAC PHASE I I Card Rehab Ordered: 05/18/2022 [facility] Comment on above: Ordered: 05/18/2022 CARDIAC PHASE II CARDIAC PHASE I I Card Rehab Ordered: 05/20/2022 [facility] Comment on above: Ordered: 05/20/2022 CARDIAC PHASE II CARDIAC PHASE I I Card Rehab Ordered: 05/25/2022 [facility] Comment on above: Ordered: 05/25/2022 CARDIAC PHASE II CARDIAC PHASE I I Card Rehab Ordered: 05/27/2022 [facility] Comment on above: Ordered: 05/27/2022 CARDIAC PHASE II CARDIAC PHASE I I Card Rehab Ordered: 05/28/2022 [facility] Comment on above: Ordered: 05/28/2022 CARDIAC PHASE II CARDIAC PHASE I I Card Rehab Ordered: 06/01/2022 [facility] Comment on above: Ordered: 06/01/2022 CARDIAC PHASE II CARDIAC PHASE I I Card Rehab Ordered: 06/04/2022 [employer] Comment on above: Ordered: 06/04/2022 CARDIAC PHASE II CARDIAC PHASE I I Card Rehab Ordered: 06/08/2022 [employer] Comment on above: Ordered: 06/08/2022 CARDIAC PHASE II CARDIAC PHASE I I Card Rehab Ordered: 06/17/2022 [facility] Comment on above: Ordered: 06/17/2022 CARDIAC PHASE II CARDIAC PHASE I I Card Rehab Ordered: 06/25/2022 [employer] Comment on above: Ordered: 06/25/2022 CARDIAC PHASE II CARDIAC PHASE I I Card Rehab Ordered: 06/29/2022 [employer] Comment on above: Ordered: 06/29/2022 CARDIAC PHASE II CARDIAC PHASE I I Card Rehab Ordered: 07/06/2022 [facility] Comment on above: Ordered: 07/06/2022 CARDIAC PHASE II CARDIAC PHASE I I Card Rehab Ordered: 07/08/2022 [employer] Comment on above: Ordered: 07/08/2022 CARDIAC PHASE II CARDIAC PHASE I I Card Rehab Ordered: 07/09/2022 [facility] Comment on above: Ordered: 07/09/2022 CARDIAC PHASE II CARDIAC PHASE I I Card Rehab Ordered: 07/13/2022 [employer] Comment on above: Ordered: 07/13/2022 CARDIAC PHASE II CARDIAC PHASE I I Card Rehab Ordered: 07/16/2022 [facility] Comment on above: Ordered: 07/16/2022 EKG 12 lead EKG 12 lead ECG Routine 04/30/2022 11:03 PM EST [employer] Work Phone: EKG 12 Lead EKG 12 Lead ECG Routine 03/03/2024 3:15 PM EST [employer] End: 10-03-2020 Hemoglobin A1c/Hemoglobin.total in Blood Hemoglobin A1C Lab Routine Once for 1 Occurrences starting 10/03/2020 until 10/03/2020 [employer] Phone: Comment on above: Once for 1 Occurrenc es starting 10/03/2020 until 10/03/2020 Hemoglobin A1c/Hemoglobin.total in Blood Hemoglobin A1C Lab Routine 10/03/2020 11:40 AM EDT [employer] Phone: End: 09-16-2023 Hemoglobin A1c/Hemoglobin.total in Blood [facility] Comment on above: Once for 1 Occurrenc es starting 09/16/2023 until 09/16/2023 End: 04-17-2022 NM MYOCARDIAL SPECT REST EXERCISE OR RX NM MYOCARDIAL SPECT REST EXERCISE OR RX Imaging Routine Shortness of breath 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 ([facility]) Presence of coronary angioplasty implant and graft Chest pain, unspecified type 1 Occurrences starting 04/17/2022 until 04/17/2022 [employer] Phone: Comment on above: 1 Occurrences starti ng 04/17/2022 until 04/17/2022 Oxygen therapy [[facility] Data Set] Initiate Oxygen Therapy Protocol Respiratory Care Routine As Needed until discontinued starting 04/30/2022 [employer] Phone: Comment on above: As Needed until disc ontinued starting 04/30/2022 Payers Date Payer Category Payer Medicare [id number] 1950 Unknown [id number] 2.16.84 [id number] 1950 Unknown [id number] 2.16.84 [id number] 1952 Unknown [id number] 2.16.8 [id number] 1952 Unknown [id number] 2.16.8 [id number] 1952 Unknown [id number] 2.16.8 [id number] 1952 Unknown [id number] 2.16.8 [id number] 1952 Unknown [id number] 2.16.8 [id number] 1952 Unknown [id number] 2.16.8 [id number] 1952 Unknown [id number] 2.16.8 [id number] 1952 Unknown [id number] 2.16.8 [id number] 1952 Unknown [id number] 2.16. [id number] 1952 Unknown [id number] 2.16.8 [id number] 1952 Unknown [id number] 2.16.8 [id number] 1952 Unknown [id number] 2.16.8 [id number] 1952 Unknown [id number] 2.16.8 [id number] 1950 Unknown [id number] 2.16.8 [id number] Social History Date Type Detail Facility Tobacco smoking stat [facility] Unknown if ever smoked [employer] Phone: Start: 1950 [facility]igned At [facility]: Tobacco smoking stat [facility] Tobacco smoking consumption unknown [facility] [employer] Phone: Start: 04-29-2022 End: 05-05-2022 Tobacco smoking status LAIS Ex-smoker [facility] [employer] Phone: Start: 03-15-1966 End: 03-15-1994 History of tobacco use Current smoker [employer] Phone: Start: 03-15-1966 End: 03-15-1994 History of tobacco use Cigarette Smoker [employer] Phone: Start: 04-29-2022 End: 05-05-2022 Alcohol intake Current drinker of alcohol (finding) [employer] Phone: Start: 04-29-2022 Alcohol Comment moderate [facility] [employer] Work Phone: Start: 04-20-2022 End: 04-30-2022 Exposure to SARS-CoV-2 (event) Not sure [facility] [employer] Start: 05-05-2022 Cigarettes smoked current (pack per day) - Reported 2 [facility] [employer] Work Phone: Start: 05-05-2022 Tobacco use panel [facility] [employer] Start: 04-26-2012 Sex Male (finding) Gaby london [employer] Clinical Notes 04-17-2022 to 10-24-2024 Cynthia Jimenez RN - 04/03/2024 10:45 AM ESTDischarge Julio Cesar Villagomez RN - 05/05/2022 8:00 AM Janene Villagomez RN - 05/05/2022 8:00 AM Chelita Mishra RN - 05/01/2022 11:04 AM EST Note Date & Type Note Facility 10-24-2024 Note Patient Education Orthopedics Hernandez Cyst A Hernandez cyst, also called a popliteal cyst, is a growth that forms at the back of the knee. The cyst forms when the fluid-filled sac (bursa) behind the knee joint fills up with more fluid and becomes enlarged. What are the causes? In most cases, a Hernandez cyst results from another knee problem that causes swelling in the knee. This makes the fluid inside the knee joint (synovial fluid) flow into the bursa behind the knee, causing the bursa to enlarge. The fluid flows in one direction and is unable to move back into the joint. What increases the risk? You may be more likely to develop a Hernandez cyst if you already have a knee problem, such as: ??? A tear in cartilage that cushions the knee joint (meniscal tear). ??? A tear in the tissues that connect the bones of the knee joint (ligament tear). ??? Knee swelling from osteoarthritis, rheumatoid arthritis, or gout. What are the signs or symptoms? The main symptom of this condition is a lump behind the knee. This may be the only symptom of the condition. The lump may be painful, especially when the knee is straightened. If the lump is painful, the pain may come and go. The knee may also be stiff. Symptoms may quickly get more severe if the cyst breaks open. If the cyst breaks open, you may feel the following in your knee and calf: ??? Sudden or worsening pain. ??? Swelling. ??? Bruising. ??? Redness in the calf. A Hernandez cyst does not always cause symptoms. How is this diagnosed? This condition may be diagnosed based on your symptoms and medical history. Your health care provider will also do a physical exam. This may include: ??? Feeling the cyst to check whether it is tender. ??? Checking your knee for signs of another knee condition that causes swelling. You may have imaging tests, such as X-ray, ultrasound, or MRI. How is this treated? A Hernandez cyst that is not painful may go away without treatment. If the cyst gets large or painful, it will likely get better if the underlying knee problem is treated. If needed, treatment for a Hernandez cyst may include: ??? Resting. ??? Keeping weight off the knee. This means not leaning on the knee to support your body weight. ??? Taking NSAIDs, such as ibuprofen, to reduce pain and swelling. ??? Draining the fluid from the cyst with a needle (aspiration). ??? Getting a steroid injection into the knee. A steroid reduces swelling. ??? Surgery. This may be needed if other treatments do not work. This usually involves correcting knee damage and removing the cyst. In some cases, you may also need to do certain exercises to improve movement in the knee (physical therapy). Follow these instructions at home: Activity ??? Rest as told by your provider. ??? Avoid activities that make pain or swelling worse. ??? Do not use the injured limb to support your body weight until your provider says that you can. Use crutches as told by your provider. ??? Raise (elevate) your knee above the level of your heart while you are sitting or lying down. ??? Do physical therapy exercises as told by your provider. ??? Return to your normal activities as told by your provider. Ask your provider what activities are safe for you. General instructions ??? Take [id number] and prescription medicines only as told by your provider. ??? Keep all follow-up visits. Your provider will monitor your healing and adjust your treatment as needed. Contact a health care provider if: ??? You have knee pain, stiffness, or swelling that does not get better. Get help right away if: ??? You have sudden or worsening pain and swelling in your calf area. This information is not intended to replace advice given to you by your health care provider. Make sure you discuss any questions you have with your health care provider. Document Revised: 10/28/2022 Document Reviewed: 10/28/2022 Message Missile Patient Education ? 2023 [employer]. [facility] 04-03-2024 History of Present illness Narrative Instructed on objectives and procedure of lexiscan/cardiolite stress test. documented in this encounter [facility] 03-03-2024 Hospital Discharge instructions Radha Jolley PA-C - 03/03/2024 7:07 PM EST Rest. Please drink plenty of of fluids. Please finish your azithromycin. 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 Precipitating Factors? Relieved by: Arrhythmia [x] Yes/describe: Premature beats and palpitations [] No [] Pacer [] AICD Arrhythmia Medications: Congestive Heart Failure [] None [x] Pedal Edema [x] Unusual weight gain [] SOB with mild exertion [x] Fatigue Vascular [x] None [] Peripheral claudication [] R [] L PAD History: Location: Pain Scale (1-5): [] Carotid Narrowing [] R [] L Musculoskeletal [x] None [] Back Pain Where? [] Joint discomfort Where? Nutrition Appetite: [x] Too Good [] Good [] Poor Diet: Regular Restaurant food <1 times/wk Dietary Screening: Rate Your Plate: 40 Daily Food Diary completed: [x] Yes [] No Lipids: Lab Results Component Value Date CHOL 171 04/10/2022 CHOL 188 10/03/2020 Lab Results Component Value Date TRIG 159 (H) 04/10/2022 TRIG 131 10/03/2020 Lab Results Component Value Date HDL 44 04/10/2022 HDL 46 10/03/2020 Lab Results Component Value Date LDLCHOLESTEROL 95 04/10/2022 LDLCHOLESTEROL 116 10/03/2020 Lab Results Component Value Date VLDL NOT REPORTED 10/03/2020 Lab Results Component Value Date CHOLHDLRATIO 3.9 04/10/2022 CHOLHDLRATIO 4.1 10/03/2020 Lipid Meds: Lipitor Alcohol: Social History Substance and Sexual Activity Alcohol Use Yes Alcohol/week: 2.0 standard drinks Types: 2 Shots of liquor per week Caffeine: [x] Yes [] No Type: coffee Amount: 12 ounce per day Water intake per day: > 36 ounces per day Psychological [] Depression [x] Anxiety - during procedure [] None Treatment: Tobacco Use Social History Tobacco Use Smoking Status Former Packs/day: 2.00 Years: 28.00 Pack years: 56.00 Types: Cigarettes Quit date: 1994 Years since quittin.1 Smokeless Tobacco Not on file Current smokers: Longest quit attempt: Tobacco triggers: Barriers to successful cessation: [] Smoking cessation medication: NA Diabetes [x] Yes [] No How Lon How do you manage your diabetes: Medications Do you check your blood sugar? [x] Yes [] No How often: Rarely Have you seen a communications officer or chucking machine set up operator? [x] Yes - 2018 [] No HbA1c: 2020 - 7.0% FBS: Glucose (mg/dL) Date Value 05/01/2022 265 (H) Diabetic Medication: Metformin Socio-Economic Marital Status: Medication Compliance (stated): [x] 100% [] 75% [] 50% [] 25% [] 0% Stress Source(s): Don't have one Relaxation techniques/hobbies: Target shooting, yard work Level of Education [] 8th Grade [] Associates [] Masters [] High School [] Bachelor [x] Other: Technical school/vocational school Depression Screening: [x] PHQ9 score: 3 Psychosocial Screening: [x] Roxane and Jannette Quality of Life Index scores: /// Cardiac Rehab Pre - Test [x] Score: 85% Physical Findings Height: 72 inches Weight: 254 l b BMI: 34.4 Weight goal: 160-180 lb BP Left: 128/72 BP Right: 118/64 Current Exercise - [] Yes - type/frequency/intensity/duration [x] No Cardiovascular- No edema, apical pulse irregular to auscultation, strong bilateral upper extremity pulses 12-Lead EKG - 04/30/2022 VR- 76 bpm AK- 158 yari QRS-92 ms QT/QTc-398/450 ms Sinus rhythm with PACs Otherwise normal ECG No previous ECGs available Cardiac Cath- 04/30/2022 LMCA 20-30% irregularities LAD 40% ostial/prox stenosis Lcx 30% osial stenosis and 50% soft plaque RCA 80% followed by and 95% distal PTCA w/CEDRICK RCA and/or branches Ejection Fraction- per Warner on 04/17/2022 = 52% Pulmonary- Breath Sounds: Clear throughout SpO2: 94% [] 02 [] CPAP [] BiPAP [x] None Neurological- No deficit noted or reported. Peripheral Vascular- No deficit noted or reported. Muscular Skeletal- No deficit noted or reported. Pain Assessment- Denies Endocrine- T2DM. Gastrointestinal- No deficit noted or reported. Genitourinary- No deficit noted or reported. Other- NA Barriers to Program Adherence: [] Transportation [] Travel distance [] Insurance/copay [] Motivation [] Other [x] None Risk Stratification (of untoward event during exercise): [] HIGH RISK LVEF < 40% Survivor of cardiac arrest or sudden cardiac Complex ventricular arrythmias (VT >6 beats, multifocal PVCs at rest or with exercise) Presence of angina or other significant symptoms (shortness of breath, light-headedness, or dizziness at <5 METs or during recovery CT or cardiac surgery complicated by cardiogenic shock, CHF, and/or s/s of post-procedure ischemia Abnormal hemodynamics with exercise, especially flat or decreasing systolic BP or chronotropic incompetence with ^ workload Significant silent ischemia (ST depression >/= 2mm without symptoms with exercise or in recovery Signs/symptoms including angina, dizziness, light-headedness or dyspnea with low exercise levels or in recovery Clinically significant depression Physically Inactive - <= 5 METs Implantable cardioverter defibrillator (ICD) At least 4 of below: Lipids LDL >130 / Cholesterol > 200 BP >160/100 BMI >30 Smoker who continues to smoke DM - HgbA1C >=7 [x] MODERATE RISK LVEF 40-49% Mild to moderate level of silent ischemia during exercise testing or recovery (ST depression <2mm from baseline) Presence of stable angina or other significant symptoms (unusual shortness of breath, light-headedness, or dizziness occurring only at high level of exertion [>=7 METs]) Functional capacity 5.1-8.9 METs At least 2-3 of below: Lipids LDL 100-129 / Cholesterol 150-199 BP - systolic 130-159/diastolic 86-99 BMI >30 DM - HgbA1C 5.8-7.0 [] LOW RISK Rest LVEF >= 50% No resting or exercise induced complex dysrhythmias Uncomplicate CT, CABG, angioplasty, atherectomy, or stent Normal hemodynamic and EGC response with exercise and in recovery (appropriate increases and decreases in HR and SBP with increasing workloads and recovery Functional capacity >9 METs Absence of angina or other significant symptoms (unusual shortness of breath, light-headedness, or dizziness during exercise and recovery) Absence of complicated ventricular arrhythmias at rest Absence of HF Absence of signs/symptoms of post-event or post-procedure ischemia Absence of clinical depression Non-smoker 0-1 Uncontrolled risk factors Fall Risk Assessment: History of falls with or without injury [] Yes [x] No Use of ambulatory aid [] Yes [x] No Difficulty walking/impaired gait [] Yes [x] No Numbness in feet [] Yes [x] No Vision changes [] Yes [x] No Dizziness [x] Yes - postural [] No Shortness of breath [x] Yes [] No Medications [x] Anticoagulant/Antiplatelet [x] Betablocker /SUSSY/ARB [] Antidepressant [] Seizure medication [] NA Risk of fall [] Low (none of above) [] Medium (less than 3 above) [x] High (3 or more above) Patient 90-Day Goals: (Specific, Measurable, Achievable, Relevant, and Time-Bound) Lose 20 pounds over 90 days and resume regular exercise routine Program Goals: Achieve and progress prescribed exercise frequency, intensity, time, and type based upon initial evaluation and submaximal graded exercise/6MWT results as evidenced by the attaining and maintaining the prescribed target heart rate range, a Ran rating of perceived exertion between 11 and 16, duration of 31 - 60 minutes using multiple exercise modes for at least 3 days/week, progressing at least 0.5-1.0 METs/week as tolerated, as evidenced by daily session reports and pre/post MET levels. Introduce and progress 8-10 different bilateral UE and/or LE progressive resistance exercises focused on major muscle groups using 1-3 sets each per lift, on 2-3 non-consecutive days implementing free and machine weights and/or TheraBands, as appropriate, with a resistance of 40-60% 1-repetition maximum or 10 -15 repetitions to progressive overload and increasing resistance once repetitions have progressed to 15 reps and feel fairly light on 2 prior occasions. Develop regular home aerobic exercise program for 20 - 60 minutes at least 2 non-rehab days per week, excluding 5 - 10 minutes warm-up and cool-down periods, as tracked on home workout log. Establish and maintain individualized heart healthy eating plan, and gradually lose 10-15 lb of body weight over the program, utilizing communications officer recommendations, moderating nutrional intake, and performing regular aerobic and strength training exercises as prescribed, as evidenced by routine weights, pre- and post-program nutriton survey and routine rounding with patient, food diary, and [id number] screening survey. Strive for blood lipid optimization with an LDL-C of <100 mg/dL or LDL 70 mg/dL, an HDL-C of > or = 40 mg/dL, and a triglyceride level of <150 mg/dL via lifestyle education, behavioral modification, and medication compliance, as evidenced by improved post-program lipid results. Strive for HbA1C <= 7.0% via lifestyle education, behavioral modification, and medication compliance as evidenced by post program HbA1C lab results. Achieve and maintain an optimal average resting blood pressure of <130 / 80 mmHg over the course of the program by educating patient, monitoring medication compliance, introducing and maintaining regular cardiovascular exercise program, as evidenced by routine BP monitoring. Minimize self-reported psycho-social feelings of stress over the program by educating patient, monitoring medication compliance, introducing and maintaining regular cardiovascular exercise as evidenced by pre- and post- surveys and by routine rounding with patient. Demonstrate knowledge about risk factor reduction, lifestyle modification, and heart health strategies with a score of >=75% via education classes and counseling as evidenced by pre- and post-program education assessment screening tool. Complete abstinence from tobacco products over the cardiac rehab program through intensive counseling, behavior modification, and medication compliance as evidenced by routine rounding with patient. Phase II Cardiac Rehab Individualized Treatment Plan-Initial Patient Name: Mariela Cortez Date: 05/05/2022 Diagnosis: PTCA Onset Date: 04/30/2022 Referring Physician: Dr. Zack Pierce Session Number: Assessment Risk Stratification (of untoward event during exercise): [] HIGH RISK LVEF < 40% Survivor of cardiac arrest or sudden cardiac Complex ventricular arrythmias (VT >6 beats, multifocal PVCs at rest or with exercise) Presence of angina or other significant symptoms (shortness of breath, light-headedness, or dizziness at <5 METs or during recovery CT or cardiac surgery complicated by cardiogenic shock, CHF, and/or s/s of post-procedure ischemia Abnormal hemodynamics with exercise, especially flat or decreasing systolic BP or chronotropic incompetence with ^ workload Significant silent ischemia (ST depression >/= 2mm without symptoms with exercise or in recovery Signs/symptoms including angina, dizziness, light-headedness or dyspnea with low exercise levels or in recovery Clinically significant depression Physically Inactive - <= 5 METs Implantable cardioverter defibrillator (ICD) At least 4 of below: Lipids LDL >130 / Cholesterol > 200 BP >160/100 BMI >30 Smoker who continues to smoke DM - HgbA1C >=7 [x] MODERATE RISK LVEF 40-49% Mild to moderate level of silent ischemia during exercise testing or recovery (ST depression <2mm from baseline) Presence of stable angina or other significant symptoms (unusual shortness of breath, light-headedness, or dizziness occurring only at high level of exertion [>=7 METs]) Functional capacity 5.1-8.9 METs At least 2-3 of below: Lipids LDL 100-129 / Cholesterol 150-199 BP - systolic 130-159/diastolic 86-99 BMI >30 DM - HgbA1C 5.8-7.0 [] LOW RISK Rest LVEF >= 50% No resting or exercise induced complex dysrhythmias Uncomplicate CT, CABG, angioplasty, atherectomy, or stent Normal hemodynamic and EGC response with exercise and in recovery (appropriate increases and decreases in HR and SBP with increasing workloads and recovery Functional capacity >9 METs Absence of angina or other significant symptoms (unusual shortness of breath, light-headedness, or dizziness during exercise and recovery) Absence of complicated ventricular arrhythmias at rest Absence of HF Absence of signs/symptoms of post-event or post-procedure ischemia Absence of clinical depression Non-smoker 0-1 Uncontrolled risk factors EXERCISE Stages of Change: [] pre-contemplation [] Action [] Contemplate [] Maintenance [x] Prep [] Relapse Exercise Prescription: Mode: [x] Walking [x] B [x] STP [x] R [x] UBE Frequency: 3 days per week Duration: 31-60 minutes Intensity: 3-6 METs THRR: 60-80% HRR Progression: Based on risk stratification, may increase duration per F.I.T.T. protocol parameters on average 5-10 minutes every 1-2 weeks for the first 4-6 weeks. After 3-4 weeks completed, continue to gradually increase F.I.T.T. parameters gradually at the established duration on average 0.5-1.0 METs per 30 days over the course of the remaining program, as established by patient centered goals and guidelines, maintaining RPE 12-16. [x] Resistance Training Introduce 8-15 bilateral upper extremity resistance exercise at 1-3 sets per lift, on 2-3 non-consecutive days using TheraBand/Free Weights/Weight machine to 8-15 reps on at lease 2 occasions, maintaining RPE 12-16. Once repetition maximum has been achieved, additional weight sets may be added. Hypertension: [x] Yes [] No Resting BP: 128/72 BP Meds: Lopressor Intervention: Home Exercise: Current Exercise - [] Yes - type/frequency/intensity/duration [x] No [] Resistance Training Progression: 20-60 minutes of aerobic exercise on at lease 2 non-rehab days. 8-12 bilateral upper extremity resistance exercise at 1-3 sets per lift, on 2 non-consecutive days using TheraBand/Free Weights/Weight Machine to 8-15 reps on at lease 2 occasions. Once repetition maximum has been achieved, additional weight sets may be added. Education: [x] Equipment [place] [] Understanding BP [x] S/S to report [] Sodium [x] Warm up/ Cool down [] Exercise Prescription [x] RPE Scale [] Hot/Cold weather guidelines [x] Ex Safety [] Home Exercise [] Staying Fit [] Proper use weights/bands Target Goal: -Individual Exercise Plan -Resting BP <130/80 mmHg -Aerobic active 30 + minutes 5-7 days per week Nutrition Stages of Change: [] pre-contemplation [] Action [] Contemplate [] Maintenance [x] Prep [] Relapse Hyperlipidemia: [x] Yes [] No Lab Results Component Value Date CHOL 171 04/10/2022 CHOL 188 10/03/2020 Lab Results Component Value Date TRIG 159 (H) 04/10/2022 TRIG 131 10/03/2020 Lab Results Component Value Date HDL 44 04/10/2022 HDL 46 10/03/2020 Lab Results Component Value Date LDLCHOLESTEROL 95 04/10/2022 LDLCHOLESTEROL 116 10/03/2020 Lab Results Component Value Date VLDL NOT REPORTED 10/03/2020 Lab Results Component Value Date CHOLHDLRATIO 3.9 04/10/2022 CHOLHDLRATIO 4.1 10/03/2020 Lipid Meds: Lipitor Diabetes: [x] Yes [] No HbA1c: 2020 - 7.0% FBS: Glucose (mg/dL) Date Value 05/01/2022 265 (H) [x] Monitor BS at home Frequency?: Rarely Diabetes Medication: Metformin Weight Management: Height: 72 inches Weight: 254 lb BMI: 34.4 Wt Goal: 160-180 lb Alcohol: Social History Substance and Sexual Activity Alcohol Use Yes Alcohol/week: 2.0 standard drinks Types: 2 Shots of liquor per week Diet Assessment Tool: [x] Food Diary Rate My Plate Score: 40 Special Diet: 2 gram NA+, reduced calorie, 30% total fat, <10% saturated fat, 25-35 grams fiber, < 200 mg cholesterol, balanced nutrition Intervention: [] Dietitian Consult [] Referred to Diabetes Education Education: [] Heart Healthy Nutrition [] Weight Management [] Portions [] Fat/Cholesterol [] Food Labels [] Food Packaging Claims [] Snacks and Substitutes [] Relate Diabetes/CAD Target Goal: -LDL-C<100 if triglycerides are > 200 -LDL-C < 70 for high risk patients -HbA1c < 7% -BMI < 25 Education Stages of Change: [] pre-contemplation [] Action [] Contemplate [] Maintenance [x] Prep [] Relapse Learning Barriers: [] Speech [] Cognitive [] Literacy [] Vision [x] Hearing [] Readiness to Learn [] None Education Assessment Score: 85% Family support: [x] Yes [] No Tobacco use: Social History Tobacco Use Smoking Status Former Packs/day: 2.00 Years: 28.00 Pack years: 56.00 Types: Cigarettes Quit date: 1994 Years since quittin.1 Smokeless Tobacco Not on file Current smokers: Longest quit attempt: Tobacco triggers: Barriers to successful cessation: [] Smoking cessation medication: NA Intervention: [] Referred to physician for smoking cessation [] Individual education and counseling [] Tobacco adjunct Education: [] Cardiac A and P [] Interventions [] Risk Factors [] Angina [] Medications [] CHF Target Goal: -Complete cessation of tobacco use (if applicable) -Continued risk factor modifications -Recognizing signs/symptoms to report -Proper use of meds Psychosocial Stages of Change: [] pre-contemplation [] Action [] Contemplate [] Maintenance [x] Prep [] Relapse Psychosocial Test: Tool Used: [place] Quality of Life Score: 24/20/27/28/26 PHQ9 score: 3 Intervention: [] Psych Consult/social sciences lecturer [] Physician Referral Medications: Education: [] Stress Management [] Depression Target Goal: -Assess presence or absence of depression using a valid screening tool. -Maximize coping skills. -Positive support system. Preventative Medication: [x] Aspirin [x] Beta Blockade [x] Statin or other lipid lowering agent [x] Antiplatelet [] SUSSY Inhibitor/ARB/Calcium Channel Epi [] Anticoagulant Medication Compliance (stated): [x] 100% [] 75% [] 50% [] 25% [] 0% Target Goal: -100% medication adherence Fall Risk Assessment: History of falls with or without injury [] Yes [x] No Use of ambulatory aid [] Yes [x] No Difficulty walking/impaired gait [] Yes [x] No Numbness in feet [] Yes [x] No Vision changes [] Yes [x] No Dizziness [x] Yes - postural [] No Shortness of breath [x] Yes [] No Medications [x] Anticoagulant/Antiplatelet [x] Betablocker /SUSSY/ARB/Calcium channel epi [] Antidepressant [] Seizure medication [] NA Risk of fall [] Low (none of above) [] Medium (less than 3 above) [x] High (3 or more above) Patient 90-Day Goals: (Specific, Measurable, Achievable, Relevant, and Time-Bound) Lose 20 pounds over 90 days and resume regular exercise routine Program Goals: Achieve and progress prescribed exercise frequency, intensity, time, and type based upon initial evaluation and submaximal graded exercise results as evidenced by the attaining and maintaining the prescribed target heart rate range, a Ran rating of perceived exertion between 11 and 16, duration of 31 - 60 minutes using multiple exercise modes for at least 3 days/week, progressing at least 0.5-1.0 METs/week as tolerated, as evidenced by daily session reports and pre/post MET levels. Introduce and progress 8-10 different bilateral UE and/or LE progressive resistance exercises focused on major muscle groups using 1-3 sets each per lift, on 2-3 non-consecutive days implementing free and machine weights and/or bands, as appropriate, with a resistance of 40-60% 1-repetition maximum or 10 -15 repetitions to progressive overload and increasing resistance once repetitions have progressed to 15 reps and feel fairly light on 2 prior occasions. Develop regular home aerobic exercise program for 20 - 60 minutes at least 2 non-rehab days per week, excluding 5 - 10 minutes warm-up and cool-down periods, as tracked on home workout log. Establish and maintain individualized heart healthy eating plan, and gradually lose 10-15 lb of body weight over the program, utilizing communications officer recommendations, moderating nutrional intake, and performing regular aerobic and strength training exercises as prescribed, as evidenced by pre- and post-program nutriton survey and routine rounding with patient, food diary, and [id number]-[id number] screening survey. Strive for blood lipid optimization with an LDL-C of <100 mg/dL or LDL 70 mg/dL, an HDL-C of > or = 40 mg/dL, and a triglyceride level of <150 mg/dL via lifestyle education, behavioral modification, and medication compliance, as evidenced by improved post-program lipid results. Strive for HbA1C <= 7.0% via lifestyle education, behavioral modification, and medication compliance as evidenced by post program HbA1C lab results. Achieve and maintain an optimal average resting blood pressure of <130 / 80 mmHg over the course of the program by educating patient, monitoring medication compliance, introducing and maintaining regular cardiovascular exercise program as evidenced by routine BP monitoring. Minimize self-reported psycho-social feelings of stress over the program by educating patient, monitoring medication compliance, introducing and maintaining regular cardiovascular exercise as evidenced by pre- and post- surveys and by routine rounding with patient. Demonstrate knowledge about risk factor reduction, lifestyle modification, and heart health strategies with a score of >=75% via education classes and counseling as evidenced by pre- and post-program education assessment screening tool. Complete abstinence from tobacco products over the cardiac rehab program through intensive counseling, behavior modification, and medication compliance as evidenced by routine rounding with patient. documented in this encounter [employer] Phone: 05-01-2022 History of Present illness Narrative Discharge instructions reviewed with patient. All questions/concerns answered and addressed. Patient discharged to 's vehicle with all belongings via wheelchair to main entrance with community cultural development officer. 05/01/22 1048 Encounter Summary Encounter Overview/Reason Certified Tumor Registrar Encounter (Pt declined spiritual care) Service Provided For: Patient Referral/Consult From: Rounding Last Encounter 05/01/22 Subjective: Denies CP or dyspnea. VS: BP 118/77 Pulse 82 Temp 98.7 F (37.1 C) (Temporal) Resp 16 Ht 6' (1.829 m) Wt 259 lb (117.5 kg) SpO2 93% BMI 35.13 kg/m Wt: I/O: In: - Out: 500 [Urine:500] Monitor: SR, PACs Meds: Scheduled Meds: sodium chloride flush 5-40 mL IntraVENous 2 times per day ticagrelor 90 mg Oral BID aspirin 81 mg Oral Daily Continuous Infusions: sodium chloride Stopped (05/01/22 09) sodium chloride PRN Meds:.sodium chloride flush, sodium chloride, acetaminophen, morphine, sodium chloride, ondansetron Exam:General Appearance: AOX3, NAD Skin: warm, dry Pulmonary/Chest: CTA Cardiovascular: RRR, premature contraction, negative JVD Extremities: No peripheral edema, Right groin site soft, no hematoma, pulses per doppler Labs: CBC with Differential: Lab Results Component Value Date/Time WBC 9.5 05/01/2022 05:25 AM RBC 4.50 05/01/2022 05:25 AM HGB 14.6 05/01/2022 05:25 AM HCT 44.8 05/01/2022 05:25 AM PLT 175 05/01/2022 05:25 AM MCV 99.6 05/01/2022 05:25 AM MCH 32.4 05/01/2022 05:25 AM MCHC 32.6 05/01/2022 05:25 AM RDW 13.0 05/01/2022 05:25 AM LYMPHOPCT 24 04/10/2022 07:07 AM MONOPCT 8 04/10/2022 07:07 AM BASOPCT 1 04/10/2022 07:07 AM MONOSABS 0.64 04/10/2022 07:07 AM LYMPHSABS 1.82 04/10/2022 07:07 AM EOSABS 0.22 04/10/2022 07:07 AM BASOSABS 0.04 04/10/2022 07:07 AM DIFFTYPE NOT REPORTED 10/03/2020 11:40 AM BMP: Lab Results Component Value Date/Time NA 138 05/01/2022 05:25 AM K 4.3 05/01/2022 05:25 AM CL 104 05/01/2022 05:25 AM CO2 20 05/01/2022 05:25 AM BUN 22 05/01/2022 05:25 AM LABALBU 4.2 04/10/2022 07:07 AM CREATININE 1.32 05/01/2022 05:25 AM CALCIUM 9.0 05/01/2022 05:25 AM GFRAA >60 10/03/2020 11:40 AM LABGLOM 58 05/01/2022 05:25 AM GLUCOSE 265 05/01/2022 05:25 AM A/P: 1. CAD -S/P PCI/CEDRICK distal RCA. No angina. On ASA, Brilinta, B. Epi, and Statin. 2. Hypercholesterolemia -On Lipitor. 3. HTN -BP controlled. Discharge home. F/U in [address] discuss with Dr[address] Burks documented in this encounter [employer] Phone: 05-01-2022 Hospital course Narrative Admitting diagnosis: CAD Positive stress test HTN DM Hypercholesterolemia Hospital course: Mr. Cortez is a 72 yo patient admitted for elective cardiac catheterization after having a positive stress test. Cardiac catheterization revealed multivessel CAD with severe single vessel disease. He underwent successful PCI/CEDRICK to distal RCA. He was discharged home in stable condition. He is to follow up in 2 weeks. Discharge medications: Medication List - All medications must be taken as prescribed. Contact your provider before stopping medications. Start Taking Start Taking Next Dose Due Morning Afternoon Evening Bedtime As Needed Icon medications to start taking aspirin 81 MG chewable tablet Your Last Dose Was: 81 mg on May 01, 2022 9:40 AM Signed by: LATRELL Agrawal CNP Take 1 tablet by mouth daily Start taking on: May 02, 2022 Replaces: aspirin 325 MG EC tablet Icon medications to start taking ticagrelor 90 MG Tabs tablet Your Last Dose Was: 90 mg on May 01, 2022 9:40 AM Signed by: LATRELL Agrawal CNP Commonly known as: BRILINTA Take 1 tablet by mouth 2 times daily Continue Taking Continue Taking Next Dose Due Morning Afternoon Evening Bedtime As Needed atorvastatin 40 MG tablet Commonly known as: LIPITOR Take 40 mg by mouth daily docusate sodium 250 MG capsule Commonly known as: COLACE Take 250 mg by mouth daily metFORMIN 500 MG tablet Commonly known as: GLUCOPHAGE Take 500 mg by mouth 2 times daily (with meals) metoprolol tartrate 25 MG tablet Commonly known as: LOPRESSOR Take 25 mg by mouth 2 times daily nitroGLYCERIN 0.4 MG SL tablet Commonly known as: NITROSTAT Place 0.4 mg under the tongue every 5 minutes as needed for Chest pain up to max of 3 total doses. If no relief after 1 dose, call 911. omeprazole 20 MG delayed release capsule Commonly known as: PRILOSEC Take 20 mg by mouth nightly ranolazine 500 MG extended release tablet Commonly known as: RANEXA Take 500 mg by mouth 2 times daily documented in this encounter [employer] Phone: 04-17-2022 History of Present illness Narrative Instructed on objectives and procedure of lexiscan/cardiolite stress test. 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 ([facility]) Presence of coronary angioplasty implant and graft Postsurgical percutaneous transluminal coronary angioplasty status Chest pain, unspecified type documented in this encounter [facility] [employer] Phone: evaluation note* Diagnosis History of PTCA- Primary Postsurgical percutaneous transluminal coronary angioplasty status documented in this encounter [facility] [employer] Phone: evaluation note* Diagnosis Other fatigue- Primary documented in this encounter [facility] Shortness of breath Coronary artery 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, unspecified vessel or lesion type, unspecified whether [place] or transplanted heart Atrial premature depolarization Supraventricular premature beats Typical atrial flutter (HCC) Atrial flutter Presence of coronary angioplasty implant and graft Postsurgical percutaneous transluminal coronary angioplasty status Other fatigue documented in this encounter [facility] instructions* Attachments The following attachments cannot be sent through Care Everywhere. * Cardiac Catheterization: Left (Gambian) * Coronary Angiogram with Possible PCI: Pre-op (Gambian) [facility] Summary Purpose Family History No Family History Records FoundNo Family History Records FoundNo Family History Records FoundNo Family History Records FoundNo Family History Records Found Advance Directives No Advanced Directives Records FoundDocuments on File Type Date Recorded Patient Engineering Secretary Expl anation ACP-Advance Directive 04/30/2022 1:13 PM A CP-Advance Directive Latest Code Status on File Code Status Date Activated Date Inactivated Comments Full Code 04/30/2022 8:23 PM Documents on File Type Date Recorded Patient Engineering Secretary Expl anation ACP-Advance Directive 05/04/2022 1:36 PM ACP-Advance Directive 04/30/2022 1:13 PM A CP-Advance Directive Latest Code Status on File Code Status Date Activated Date Inactivated Comments Full Code 04/30/2022 8:23 PM 05/01/2022 2:09 PM Latest Code Status on File Code Status Date Activated Date Inactivated Comments Full Code 04/30/2022 8:23 PM 05/01/2022 2:09 PM Date Activated Date Inactivated Comments 04/30/2022 8:23 PM 05/01/2022 2:09 PM Documents on File Type Date Recorded Patient Engineering Secretary Expl anation ACP-Power of Self Contained Behavior Unit Teacher 03/03/2024 5:14 PM Durable Power of Self Contained Behavior Unit Teacher for Health Care ACP-Advance Directive 05/04/2022 1:36 PM ACP-Advance Directive 04/30/2022 1:13 PM A CP-Advance Directive Documents on File Type Date Recorded Patient Engineering Secretary Expl anation ACP-Power of Self Contained Behavior Unit Teacher 03/03/2024 5:14 PM Durable Power of Self Contained Behavior Unit Teacher for Health Care ACP-Advance Directive 05/04/2022 1:36 PM ACP-Advance Directive 04/30/2022 1:13 PM A CP-Advance Directive Date Activated Date Inactivated Comments 04/30/2022 8:23 PM 05/01/2022 2:09 PM Reason for Referral Specialty Diagnoses / Procedures Referred By Gray jones Referred To Contact Radiology Diagnoses Shortness of breath 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 (HCC) Presence of coronary angioplasty implant and graft Chest pain, unspecified type Procedures NM MYOCARDIAL SPECT REST EXERCISE OR RX Selena Burks MD [address] [place] [id number] Referral ID Status Reason Start Date Expiration Date Visits Re quested Visits Authorized [id number] Closed 04/14/2022 06/13/2022 1 1 Specialty Diagnoses / Procedures Referred By Gray jones Referred To Contact Cardiac Rehabilitation Diagnoses History of PTCA [facility] [address] [place] [address] Referral ID Status Reason Start Date Expiration Date V isits Requested Visits Authorized [id number] Open Specialty Services Required 05/01/2022 10/28/2022 1 1 Question Answer Reason For External Referral? Location - [facility] Reason for referral to cardiac rehab Status post PCTA/Coronary artery stenting Comments The patient can be scheduled with any member of the group, including the provider with the first available appointments. Specialty Diagnoses / Procedures Referred By Gray jones Referred To Contact Cardiology Diagnoses Shortness of breath Coronary artery 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, unspecified vessel or lesion type, unspecified whether [place] or transplanted heart Atrial premature depolarization Typical atrial flutter (HCC) Presence of coronary angioplasty implant and graft Other fatigue Procedures Nuclear stress test with myocardial perfusion Selena Burks MD [address] [place] [id number] Referral ID Status Reason Start Date Expiration Date V isits Requested Visits Authorized [id number] Authorized 03/29/2024 03/28/2025 5 5 Additional Source Comments (unrecognized sect ion and content) No Status Records FoundNo Status Records FoundNo Status Records FoundNo Status Records FoundNo Status Records Found INFORMATION SOURCE (unrecogn ized section and content) DATE CREATED AUTHOR 12/10/2021 [facility] DATE CREATED AUTHOR AUTHOR'S ORGANIZ ATION 03/07/2024 [facility] DATE CREATED AUTHOR AUTHOR'S ORGANIZ ATION 09/29/2024 [facility] DATE CREATED AUTHOR AUTHOR'S ORGANIZ ATION 10/04/2024 [facility] DATE CREATED AUTHOR AUTHOR'S ORGANIZ ATION 12/02/2024 [facility] Reason for Visit (unrecogniz ed section and content) Specialty Diagnoses / Procedures Referred By Gray jones Referred To Contact Radiology Diagnoses Shortness of breath 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 ([facility]) Presence of coronary angioplasty implant and graft Chest pain, unspecified type Procedures NM MYOCARDIAL SPECT REST EXERCISE OR RX Selena Burks MD [facility] [place] [address] Referral ID Status Reason Start Date Expiration Date Visits Re quested Visits Authorized [id number] Closed 04/14/2022 06/13/2022 1 1 Specialty Diagnoses / Procedures Referred By Gray jones Referred To Contact Zack Pierce MD [address] [place] [address] [facility] [address] [place] [address] Referral ID Status Reason Start Date Expiration Date Visits Re quested Visits Authorized [id number] 1 1 Reason Comments Chest Pain Specialty Diagnoses / Procedures Referred By Gray t Referred To Contact Cardiology Diagnoses Shortness of breath Coronary artery 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, unspecified vessel or lesion type, unspecified whether [place] or transplanted heart Atrial premature depolarization Typical atrial flutter (HCC) Presence of coronary angioplasty implant and graft Other fatigue Procedures Nuclear stress test with myocardial perfusion Selena Burks MD [address] [facility] [place] [address] Referral ID Status Reason Start Date Expiration Date V isits Requested Visits Authorized [id number] Authorized 03/29/2024 03/28/2025 5 5 Care Teams (unrecognized sec tion and content) Reading Specialist Relationship Specialty Start Date End Date Sara Avery [address] [place] [address] PCP - General 03/15/17 Reading Specialist Relationship Specialty Start Date End Date Sara [address] [place] [address] PCP - General 03/15/17 Reading Specialist Relationship Specialty Start Date End Date Sara Avery [address] [place] [address] PCP - General 03/15/17 Reading Specialist Relationship Specialty Start Date End Date Sara Avery [address] [place] [address] PCP - General 03/15/17 Reading Specialist Relationship Specialty Start Date End Date Sara Avery [address] [place] [address] PCP - General 03/15/17 Reading Specialist Relationship Specialty Start Date End Date Sara Avery [address] [place] [address] PCP - General 03/15/17 Reading Specialist Relationship Specialty Start Date End Date Sara Avery [address] [place] [address] PCP - General 03/15/17 Reading Specialist Relationship Specialty Start Date End Date Sara Avery [address] [place] [address] PCP - General 03/15/17 Reading Specialist Relationship Specialty Start Date End Date Sara Avery [address] [place] [address] PCP - General 03/15/17 Reading Specialist Relationship Specialty Start Date End Date Sara Avery [address] [place] [address] PCP - General 03/15/17 Reading Specialist Relationship Specialty Start Date End Date Sara Avery [address] [place] [address] PCP - General 03/15/17 Reading Specialist Relationship Specialty Start Date End Date Sara Avery [address] [place] [address] PCP - General 03/15/17 Reading Specialist Relationship Specialty Start Date End Date Sara Avery [address] [place] [address] PCP - General 03/15/17 Reading Specialist Relationship Specialty Start Date End Date Sara Avery [address] [place] [address] PCP - General 03/15/17 Reading Specialist Relationship Specialty Start Date End Date Sara Avery [address] [place] [address] PCP - General 03/15/17 Reading Specialist Relationship Specialty Start Date End Date Sara Avery [address] [place] [address] PCP - General 03/15/17 Reading Specialist Relationship Specialty Start Date End Date Sara Avery [address] [place] [address] PCP - General 03/15/17 Reading Specialist Relationship Specialty Start Date End Date Sara Avery [address] [place] [address] PCP - General 03/15/17 Reading Specialist Relationship Specialty Start Date End Date Sara Avery [address] [place] [address] PCP - General 03/15/17 Reading Specialist Relationship Specialty Start Date End Date Sara Avery [address] [place] [address] PCP - General 03/15/17 Reading Specialist Relationship Specialty Start Date End Date Sara Avery [address] [place] [address] PCP - General 03/15/17 Reading Specialist Relationship Specialty Start Date End Date Sara Avery [address] [place] [address] PCP - General 03/15/17 Reading Specialist Relationship Specialty Start Date End Date Sara Avery [address] [place] [address] PCP - General 03/15/17 Reading Specialist Relationship Specialty Start Date End Date Sara Avery [address] [place] [address] PCP - General 03/15/17 Reading Specialist Relationship Specialty Start Date End Date Sara Avery [address] [place] [address] PCP - General 03/15/17 Reading Specialist Relationship Specialty Start Date End Date Sara Avery [address] [place] [address] PCP - General 03/15/17 Reading Specialist Relationship Specialty Start Date End Date Sara Avery [address] [place] [address] PCP - General 03/15/17 Reading Specialist Relationship Specialty Start Date End Date Sara Avery [address] [place] [address] PCP - General 03/15/17 Reading Specialist Relationship Specialty Start Date End Date Sara Avery [address] [place], [facility] PCP - General 03/15/17 Reading Specialist Relationship Specialty Start Date End Date Sara Avery [address] [place] [address] PCP - General 03/15/17 Reading Specialist Relationship Specialty Start Date End Date Gena Sara Davila [address] [place] [address] PCP - General 03/15/17 Reading Specialist Relationship Specialty Start Date End Date AverySara [address] [place] [address] PCP - General 03/15/17 Reading Specialist Relationship Specialty Start Date End Date Sara Avery [address] [place] [address] PCP - General 03/15/17 Reading Specialist Relationship Specialty Start Date End Date Sara Avery [address] [place] [address] PCP - General 03/15/17 Reading Specialist Relationship Specialty Start Date End Date Sara Avery [address] [place] [address] PCP - General 03/15/17 Reading Specialist Relationship Specialty Start Date End Date Sara Avery MD [address] [place] [address] PCP - General 03/15/17 Reading Specialist Relationship Specialty Start Date End Date Sara Avery MD [address] [place] [address] PCP - General 03/15/17 Reading Specialist Relationship Specialty Start Date End Date Sara Avery MD [address] [place] [address] PCP - General 03/15/17 Reading Specialist Relationship Specialty Start Date End Date Sara Avery MD [address] [place] [address] PCP - General 03/15/17 Reading Specialist Relationship Specialty Start Date End Date Sara Avery MD [address] [place] [address] PCP - General 03/15/17 Reading Specialist Relationship Specialty Start Date End Date Sara Avery MD [address] [place] [address] PCP - General 03/15/17 Reading Specialist Relationship Specialty Start Date End Date Sara Avery MD [address] [place] [address] PCP - General 03/15/17 Reading Specialist Relationship Specialty Start Date End Date Liz Brower APRN - [employer] [address] [place] [address] PCP - General 03/03/24 Reading Specialist Relationship Specialty Start Date End Date Liz Brower, [employer] SUPER[employer]OR - [employer] [address] [place] [address] PCP - General 03/03/24 Reading Specialist Relationship Specialty Start Date End Date Magda, Liz, [employer] SUPER[employer]OR - [employer] [address] [place] [address] PCP - General 03/03/24 Reading Specialist Relationship Specialty Start Date End Date Magda, Liz, [employer] SUPERVISOR - [employer] [address] [place] [address] PCP - General 03/03/24 Reading Specialist Relationship Specialty Start Date End Date Magda, Liz, [employer] SUPERVISOR - [employer] [address] [place], [facility] PCP - General 03/03/24 Reading Specialist Relationship Specialty Start Date End Date Magda, Liz, R[employer] SUPERVISOR - [employer] [address] [place] [address] PCP - General 03/03/24 Reading Specialist Relationship Specialty Start Date End Date Magda, Liz, [employer] SUPERVISOR - [employer] [address] [place] [address] PCP - General 03/03/24 Reading Specialist Relationship Specialty Start Date End Date Magda, Liz, [employer] SUPERVISOR - [employer] [address] [place] [address] PCP - General 03/03/24 Reading Specialist Relationship Specialty Start Date End Date Magda, Liz, [employer] SUPERVISOR - [employer] [address] [place] [address] PCP - General 03/03/24 Reading Specialist Relationship Specialty Start Date End Date Magda, Liz, [employer] SUPERVISOR - [employer] [address] [facility] [place] [address] PCP - General 03/03/24 Reading Specialist Relationship Specialty Start Date End Date Magda, Liz, [employer] SUPERVISOR - [employer] [address] [facility] [place] [address] PCP - General 03/03/24 Reading Specialist Relationship Specialty Start Date End Date Magda, Liz, R[employer] SUPERVISOR - [employer] [address] [facility] [place] [address] PCP - General 03/03/24 Reading Specialist Relationship Specialty Start Date End Date Magda, Liz, [employer] SUPERVISOR - [employer] [address] [facility] [place] [address] PCP - General 03/03/24 Reading Specialist Relationship Specialty Start Date End Date Magda, Liz, [employer] SUPERVISOR - [employer] [address] [facility] [place] [address] PCP - General 03/03/24 Reading Specialist Relationship Specialty Start Date End Date Magda, Liz, [employer] SUPERVISOR - [employer] [address] [facility] [place] [address] PCP - General 03/03/24 Reading Specialist Relationship Specialty Start Date End Date Magda, Liz, [employer] SUPERVISOR - [employer] [address] [facility] [place] [address] PCP - General 03/03/24 Reading Specialist Relationship Specialty Start Date End Date Magda, Liz, [employer] SUPERVISOR - [employer] [address] [place] [address] PCP - General 03/03/24 Reading Specialist Relationship Specialty Start Date End Date Liz BrowerSEANN - [employer] [address] [place] [address] PCP - General 03/03/24 Ordered Prescriptions (unrec ognized section and content) Prescription Sig Dispensed Refills Start Date End Da te ticagrelor (BRILINTA) 90 MG TABS tablet Take 1 tablet by mouth 2 times daily 60 tablet 0 05/01/2022 aspirin 81 MG chewable tablet Take 1 tablet by mouth daily 30 tablet 3 05/02/2022 Scheduled Active and Recently Administ ered Medications (unrecognized section and content) Medication Order 04/29/2022 04/30/2022 05/01/2022 aspirin chewable tablet 81 mg 81 mg, Oral, DAILY, First dose on Wed05/01/22 at 0900, Until Discontinued, Recovery(Cath) 0940 (Given - Provid er: Aneta Mishra RN) sodium chloride flush 0.9 % injection 5-40 mL 5-40 mL, IntraVENous, EVERY 12 HOURS SCHEDULED (2 times per day), First dose on Kim 04/30/22 at 2100, Until Discontinued, For Line Patency: Peripheral IV = 5 mL; Midline or Central Line = 10 mL/lumen. If following IV push medication, administer flush at same rate as the IV push. Flush volume is determined by type of infusion therapy being given. For non-viscous solutions use: Peripheral IV = 5 mL Midline or Central Line = 10 mL/lumen For viscous solutions (i.e. blood components, parenteral nutrition, contrast media, or after obtaining blood sample) use: Peripheral IV = 10 mL Midline or Central Line = 20 mL/lumen, Recovery(Cath) 2023 (Not Given - Provider: Domo Rodriguez RN - Reason: IV Fluid Infusing) 1048 (Not Given - Provider: Aneta Mishra RN - Reason: IV Fluid Infusing)2100 (Due) ticagrelor (BRILINTA) tablet 90 mg 90 mg, Oral, 2 TIMES DAILY, First dose on Kim 04/30/22 at 2100, Until Discontinued, Ticagrelor maintenance dose should be given with 81mg of Aspirin, Recovery(Cath) 0048 (Given - Provid er: Yady Wilson RN)0940 (Given - Provider: Aneta Mishra, RN)2100 (Due) Continuous Medication Order 04/29/2022 04/30/2022 05/01/2022 0.9 % sodium chloride infusion IntraVENous, at 25 mL/hr, CONTINUOUS, Starting on Kim 04/30/22 at 2044, Recovery(Cath) 2046 (New Bag - Provider: Domo Rodriguez RN) 09 (Stopped - Provider: Aneta Mishra, RN) PRN Medication Order 04/29/2022 04/30/2022 05/01/2022 0.9 % sodium chloride bolus 500 mL (4.41 mL/kg), IntraVENous, at 1,000 mL/hr, Administer over 30 Minutes, PRN, vasovagal response or hypotension, Starting on Kim 04/30/22 at 2022, Recovery(Cath) 0.9 % sodium chloride infusion IntraVENous, at 5-250 mL/hr, PRN, if patient receiving piggyback infusions and maintenance fluids are not ordered OR KVO fluids to protect IV site / prevent frequent line interruptions/ long duration, Starting on Kim 04/30/22 at 2022, For piggyback infusion, administer at same rate as piggyback for a total of 25 mL. Enter 25 mL into dose field and piggyback rate into rate field of order. If piggyback is infusing at a rate less than 100 mL/hr, enter 25 mL into dose field and 100 mL/hr into rate field of order. For KVO fluids, enter rate of 20 mL/hr or less into rate field of order., Recovery(Cath) acetaminophen (TYLENOL) tablet 650 mg 650 mg, Oral, EVERY 4 HOURS PRN, Starting on Kim 04/30/22 at 2022, Until Discontinued, Pain Mild (1-3), Fever, Fever >100.5 F (38 C), Maximum dose of acetaminophen is 4000 mg from all sources in 24 hours., Recovery(Cath) morphine (PF) injection 2 mg 2 mg, IntraVENous, ONCE PRN, 1 dose, Starting on Kim 04/30/22 at 2022, Until Wed05/01/22 at 2022, Prior to sheath pull, Recovery(Cath) ondansetron (ZOFRAN) injection 4 mg 4 mg, IntraVENous, EVERY 6 HOURS PRN, Starting on Kim 04/30/22 at 2022, Until Discontinued, Nausea, Recovery(Cath) sodium chloride flush 0.9 % injection 5-40 mL 5-40 mL, IntraVENous, PRN, Starting on Kim 04/30/22 at 2022, Until Discontinued, Line Care, After every IV line use, For Line Patency: Peripheral IV = 5 mL; Midline or Central Line = 10 mL/lumen. If following IV push medication, administer flush at same rate as the IV push. Flush volume is determined by type of infusion therapy being given. For non-viscous solutions use: Peripheral IV = 5 mL Midline or Central Line = 10 mL/lumen For viscous solutions (i.e. blood components, parenteral nutrition, contrast media, or after obtaining blood sample) use: Peripheral IV = 10 mL Midline or Central Line = 20 mL/lumen, Recovery(Cath) FOR RECORDS PERTAINING TO PATIENTS WHO ARE OR HAVE BEEN ENROLLED IN A CHEMICAL DEPENDENCY/SUBSTANCEABUSE PROGRAM, SOME INFORMATION MAY BE OMITTED. This clinical summary was aggregated from multiple sources. Caution should be exercised in using it in the provision of clinical care. This summary normalizes information from multiple sources, and as a consequence, information in this document may materially change the coding, format and clinical context of patient data. In addition, data may be omitted in some cases. CLINICAL DECISIONS SHOULD BE BASED ON THE PRIMARY CLINICAL RECORDS. [employer] provides no warranty or guarantee of the accuracy or completeness of information in this document.
--- NOTE | 2024-12-05 09:46 | XR_ITS ---
The [address] [address] Patient Name: MARIELA KENNY MRN: [id number] date: 1950 Sex: M Assigned Patient Location: [facility] Current Patient Location: [facility] Accession/Order Number: [id number] Exam Date: 12/05/2024 09:50 Report Date: 12/05/2024 10:18 At the request of: LIZ MAN Procedure: XR knee RT 4V RIGHT KNEE - 4 views COMPARISON: None CLINICAL DATA: Right knee pain, greater laterally for the past week. History of Hernandez's cyst. AP, lateral and both oblique views were obtained. A marker was placed at the site of patient's pain. There are no acute fractures or dislocation. There is no disproportionate tibiofemoral joint compartment narrowing. There may be narrowing at the patellofemoral joint. There are tiny marginal spurs. A small amount of joint fluid is seen. There is atherosclerotic plaque involving vessels at the posterior knee. XR/XR knee RT 4V IMPRESSION: MILD DEGENERATIVE CHANGES. NO ACUTE BONY FINDINGS. Impression dictated by: America Serna M.D. 12/05/2024 10:18 AM Dictation Location: [facility] Electronically authenticated by: [id number] Date: 12/05/2024 10:18
== END 2024-12-05 09:33 | disposition home or self-care (01) ==
PROVIDERS: PCP Nurse Practitioner; Visit Provider Nurse Practitioner
DX: M25.561 Pain in right knee (principal); Z78.9 Other specified health status; Z68.34 Body mass index [BMI] 34.0-34.9, adult; E66.811 Obesity, class 1
CPT/HCPCS: 73564